=== PATIENT | female | born 1950 | race Caucasian/White ===

== ENCOUNTER → 2017-05-02 09:15 | Outpatient (CLI) | payer MEDICARE, SELFPAY ==
--- NOTE | 2017-05-02 09:22 | MM_ITS ---
MM Dig screening mamm BI w/CAD CAD Screening COMPARISON: None, previous mammograms were performed at [facility] and if and when they arrive an addendum can be dictated INDICATION: There is no personal or family history of breast cancer TECHNIQUE: Standard CC and MLO images were obtained. R2 CAD reviewed. FINDINGS: Prominent diffuse heterogenic fibroglandular densities are seen in both breasts. There are possible asymmetric densities in each breast best seen on the cc views. There is a mole marker left breast. There are few scattered benign-appearing calcifications in each breast. There are no suspicious microcalcifications. IMPRESSION: Diffusely dense parenchymal pattern with possible asymmetric densities in each breast and recommend the patient return for spot compression views of the areas marked on the film and ultrasound may be necessary as well BI-RADS Category: 0 Need Additional Imaging Evaluaiton RECOMMENDED FOLLOW-UP: IMM - IMMEDIATE FOLLOW-UP RECOMMENDED (A letter has been sent to the patient regarding results of the study.)
--- NOTE | 2017-05-02 09:23 | XR_ITS ---
DEXA SCAN.-BONE DENSITY STUDY HIPS AND LUMBAR SPINE TECHNIQUE: DEXA scan hip and lumbar spine The most complete data summary and color graphic presentation of the today's ( and any prior ) DEXA findings are available in PACS. Definition and treatment guidelines included. HISTORY: Postmenopausal female. Height loss and low calcium intake COMPARISON: None listed LUMBAR SPINE:--- L1 vertebral body demonstrates the lowest T score 0.8 with BMD1.23 g/cm sq Overall mean lumbar L1-L4 T score 4.0 with BMD1.662. g/cm sq . However I believe this is very slight elevated due to the prominent sclerotic] endplate changes and marginal osteophytes at the L2/3 level and to lesser L4/5. The measurements at level L1 vertebra likely the most ocean import representative bone density of spine . HIPS: ---- Femoral neck density is best predictor of hip fracture risk . Right femoral neck demonstrates the lowest T score 0.5 with BMD1.1 g/cm sq . Left femoral neck T score 1.5 Averaging all areas yields today's Hip Mean T score 2.3 with BMD1.29 g/cm sq . = Normal IMPRESSION......... 1. LUMBAR SPINE: Normal bone density. I believe L1 vertebra density is most ocean import representative L1 T score = 0.8. Degenerative features L-spine yielding dense bone about the L2/3 disc space, and to lesser L4/5 which elevate the overall bone density. 2. HIPS: Normal bone density Normal overall bone density hips and both femoral neck regions WHO criteria for post-menopausal, Women: Normal: T-score at or above -1 SD Osteopenia: T-score between -1 and -2.5 SD Osteoporosis: T-score at or below -2.5 SD
== END ==
PROVIDERS: Family Provider Family Medicine; PCP Family Medicine; Visit Provider Family Medicine
DX: Z12.31 Encounter for screening mammogram for malignant neoplasm of breast (principal); Z78.0 Asymptomatic menopausal state
CPT/HCPCS: 77067; 77080

== ENCOUNTER → 2017-05-13 14:04 | Outpatient (CLI) | payer MEDICARE, SELFPAY ==
--- NOTE | 2017-05-13 | US_ITS ---
MM Dig mamm BI DX w/CAD, US breast RT complete, US breast LT complete COMPARISON: 05/02/2017, or mammograms obtained at an outside institution are not available for review. INDICATION: Follow-up abnormal mammogram ORDERING PHYSICIAN: Ruel Blakely MD PATIENT AGE: 66 years TECHNIQUE: Problem-solving views of both breasts with complete bilateral breast ultrasound including axilla FINDINGS: Left mammogram: Spot compression views demonstrates a nodular opacity in the lateral left breast anteriorly which measures 7 mm. There are some faint calcifications also noted in this area. Asymmetric density was noted in the deep outer left breast which is less apparent on the exaggerated cc view and not demonstrated on the orthogonal view. On the exaggerated cc view, the 7 mm nodular opacity is less apparent and may represent asymmetric fibroglandular tissue appearing to compress out on the exiting CVA. There was a benign-appearing nodule in the deep central aspect of the left breast measuring 9 mm containing some coarse calcifications probably benign. Left breast ultrasound: No suspicious mass is evident. Similarly, the nodular density in the lateral left breast is not identified sonographically. Second look ultrasound showed a subcutaneous 8 mm nodule in the 5:00 region of the left breast outer aspect possibly related to the nodule containing coarse calcification and could represent a sebaceous cyst. Right mammogram: Asymmetric density noted in the lateral aspect of the right breast partially compresses out probably represent fibroglandular tissue. Right breast ultrasound: There is a 4 mm cyst at the 2:00 region and a 4 mm cyst at 7:00 region near the nipple which could account for the mammographic abnormality. No suspicious nodules are evident. IMPRESSION: Probably benign findings bilaterally. See above for detail BI-RADS Category: 3 Benign Finding Short Term Follow-up RECOMMENDED FOLLOW-UP: 6M - 6 MONTH FOLLOW-UP Recommend 6 month bilateral mammogram and ultrasound (A letter has been sent to the patient regarding results of the study.)
== END ==
PROVIDERS: Family Provider Family Medicine; PCP Family Medicine; Visit Provider Family Medicine
DX: R92.8 Other abnormal and inconclusive findings on diagnostic imaging of breast (principal)
CPT/HCPCS: 76641; 77066

== ENCOUNTER → 2017-11-02 12:45 | Outpatient (CLI) | payer MEDICARE, SELFPAY ==
--- NOTE | 2017-11-02 | MM_ITS ---
Mammogram diagnostic MM Dig mamm BI DX w/CAD COMPARISON: Previous May 2017 diagnostic mammogram, subsequent to a May 02, 2017 bilateral screening mammogram. Also bilateral breast ultrasound performed May 2017 INDICATION: Asymmetric density calcifications now for six-month follow-up. TECHNIQUE: Routine CC and MLO view both breast with subsequent Spot CC and MLO and 90 degree views of the left breast. . Also magnification CC and 90 degree view of calcifications left breast ===== BILATERAL DIAGNOSTIC MAMMOGRAM with SPOT VIEWS LEFT BREAST: RIGHT BREAST moderately dense and heterogeneous breast with no significant new findings. Follow-up in one of the right with the adequate. LEFT BREAST Area Labeled X -very deep breast we again see a at least 9.5 mm round nodular density. Calcifications as margin. It has not changed significantly since previous study but does warrant ongoing follow-up to indolent slowly changing abnormality. No cyst evident no suspicious solid nodule. The imaged lymph nodes seen on sagittal ultrasound and deep left breast appear to be more towards axillary region Suggest 6 month follow-up for area labeled X Area labeled Y--small 6 mm round area of nodularity upper-outer quadrant left breast. I believe can be followed in 6 months is well likely stable. Ultrasound reveals no unique findings here.. The scattered calcifications at the 12:00 left breast are fairly dense and scattered with no suspicious cluster or branching forms. Only minor progression of these most likely benign calcifications. Indication views included. Follow-up in 6 months adequate for these features as well. Also small area of calcification seen at the far lateral left breast which appear stable ULTRASOUND LEFT BREAST. With axillary survey Survey the entire breast with particular attention to areas noted on mammography. Axillary survey including No cyst or solid nodule is identified in the breast. We do see axillary lymph nodes some of which extend inferiorly but do not clearly associated with the area deep breast labeled X noted on mammography . IMPRESSION: 1. LEFT BREAST. ... Most notable is rounded density at deep margin of today's left mammogram.. Roughly 9.5 mm-. It appears fairly stable with minimal calcification is rim. More likely benign but warrants ongoing follow-up. No corresponding and malleolus seen on not evident subsequent ultrasound ... Minimal 6 mm round density vaguely seen at upper-outer quadrant left breast. Most likely benign feature and likely stable. ... Scattered loose grouping of slightly progressive but dense benign-appearing calcifications medial central breast. 2. Six-month follow-up left breast with left breast ultrasound recommended given the above features 3. Left Ultrasound today, reveals no cyst nor solid nodule only scattered benign axillary lymph nodes 4. RIGHT BREAST stable & unremarkable. Follow-up right mammogram 1 year BI-RADS CATEGORY: 3 Benign Finding Short Term Follow-Up RECOMMENDED FOLLOWUP: 6M 6MONTH FOLLOW-UP (A letter has been sent to the patient regarding results of the study.)
--- NOTE | 2017-11-02 14:00 | US_ITS ---
MAMMOGRAM DIAGNOSTIC MM Dig mamm BI DX w/CAD US breast LT complete COMPARISON: Previous May 2017 diagnostic mammogram, subsequent to a May 02, 2017 bilateral screening mammogram. Also bilateral breast ultrasound performed May 2017 INDICATION: Asymmetric density calcifications now for six-month follow-up. TECHNIQUE: Routine CC and MLO view both breast with subsequent Spot CC and MLO and 90 degree views of the left breast. . Also magnification CC and 90 degree view of calcifications left breast ===== BILATERAL DIAGNOSTIC MAMMOGRAM with SPOT VIEWS LEFT BREAST: RIGHT BREAST moderately dense and heterogeneous breast with no significant new findings. Follow-up in one of the right with the adequate. LEFT BREAST Area Labeled X -very deep breast we again see a at least 9.5 mm round nodular density. Calcifications as margin. It has not changed significantly since previous study but does warrant ongoing follow-up to indolent slowly changing abnormality. No cyst evident no suspicious solid nodule. The imaged lymph nodes seen on sagittal ultrasound and deep left breast appear to be more towards axillary region Suggest 6 month follow-up for area labeled X Area labeled Y--small 6 mm round area of nodularity upper-outer quadrant left breast. I believe can be followed in 6 months is well likely stable. Ultrasound reveals no unique findings here.. The scattered calcifications at the 12:00 left breast are fairly dense and scattered with no suspicious cluster or branching forms. Only minor progression of these most likely benign calcifications. Indication views included. Follow-up in 6 months adequate for these features as well. Also small area of calcification seen at the far lateral left breast which appear stable ULTRASOUND LEFT BREAST. With axillary survey Survey the entire breast with particular attention to areas noted on mammography. Axillary survey including No cyst or solid nodule is identified in the breast. We do see axillary lymph nodes some of which extend inferiorly but do not clearly associated with the area deep breast labeled X noted on mammography . IMPRESSION: 1. LEFT BREAST.. Follow-up left mammogram and left breast ultrasound in 6 months ... Most notable is rounded density at deep left breast at margin of image.. Roughly 9.5 mm-. It appears fairly stable with minimal calcification is rim. More likely benign but warrants ongoing follow-up. No corresponding cystic or solid mass evident subsequent ultrasound ... Minimal 6 mm round density vaguely seen at upper-outer quadrant left breast seen on mammography. Most likely benign feature and likely stable. ... Scattered loose grouping of slightly progressive but dense benign-appearing calcifications medial central breast. 2. Six-month follow-up left breast with left breast ultrasound recommended given the above features 3. Left Ultrasound today, reveals no cyst nor solid nodule only scattered benign axillary lymph nodes 4. RIGHT BREAST stable & unremarkable. Follow-up right mammogram 1 year BI-RADS CATEGORY: 3 BENIGN FINDINGS SHORT TERM FOLLOW UP RECOMMENDED FOLLOWUP: 6M 6MONTH FOLLOW-UP (A letter has been sent to the patient regarding results of the study.)
== END ==
PROVIDERS: Family Provider Family Medicine; PCP Family Medicine; Visit Provider Family Medicine
DX: R92.8 Other abnormal and inconclusive findings on diagnostic imaging of breast (principal)
CPT/HCPCS: 76641; 77066

== ENCOUNTER → 2018-05-01 11:46 | Outpatient (CLI) | payer MEDICARE, SELFPAY ==
--- NOTE | 2018-05-01 11:52 | NM_ITS ---
History and Indications: Hypertension, diabetes, hyperlipidemia, family history, chest pain and shortness of breath Procedure: Patient received a 0.4 mg of intravenous Lexiscan, resting heart rate 83 bpm resting blood pressure 160/86, with Lexiscan maximum heart rate achieved was 1 45 bpm which is less than 85% of the maximum predicted heart rate and a blood pressure was 215/90. With Lexiscan patient complained of shortness of breath. Electrocardiogram: Resting electrocardiogram showed sinus rhythm nonspecific. Changes, with Lexiscan occasional premature ventricular complex seen less than 1.[address] segment depression from the baseline EKG. The EKG portion of the Lexiscan Myoview is nondiagnostic secondary to baseline abnormal EKG. Cardiac stress and resting SPECT images: Cardiac stress and the suspect images were obtained using technetium 99 Myoview 32.2 mCi at stress and 10.5 mCi at rest. Gated SPECT further analysis of segmental wall motion and calculation of the ejection fraction also done. Cardiac stress and rest SPECT images show inferolateral wall which improves on the resting images suggestive of reversible ischemia, computer derived ejection fraction 59 percent, with no regional wall motion abnormality, right ventricle is normal size and contractility. Conclusion: 1. The EKG portion of the Lexiscan Myoview is nondiagnostic. 2. Scintigraphic evidence of mild reversible ischemia involving the inferior and inferolateral wall, computer derived ejection fraction is 59% with no regional wall motion abnormality, right ventricle is normal size and contractility. 3. Abnormal Lexiscan Myoview study.
--- NOTE | 2018-05-01 15:01 | HMH.ITSHM ---
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 []FENOFIBRIC FERROUS SULFATE GABAPENTIN GLIMEPERIDE JANVIA METFORMIN METOPROLOL NAPRXEN RANITIDINE SIMVASTATIN VALSARTAN/HCTZ ZETIA
== END ==
PROVIDERS: PCP Family Medicine; Visit Provider Family Medicine
DX: R07.9 Chest pain, unspecified (principal)
CPT/HCPCS: 78452; 93017; A9502; J2785

== ENCOUNTER → 2018-05-08 12:54 | Outpatient (CLI) | payer MEDICARE, SELFPAY ==
--- NOTE | 2018-05-08 12:56 | US_ITS ---
MM Dig mamm DX unilat LT CAD, US breast LT complete INDICATION: 6 month follow-up abnormal mammogram ORDERING PHYSICIAN: Ruel Blakely MD PATIENT AGE: 67 years COMPARISON: 11/02/2017, 05/13/2017 TECHNIQUE: Standard images performed along with spot compression views and mag views FINDINGS: Left mammogram: Scattered asymmetric fibroglandular elements once again noted. No change in the coarse calcifications. No malignant appearing mass or malignant appearing microcalcification is evident. There is an asymmetric density in the lateral aspect of the left breast just anterior to the benign-appearing nodular density not significant change since 05/02/2017. Benign-appearing nodular opacity in the deep aspect of the left breast at 9 mm containing coarse calcification is not significant changed since May 13, 2017 benign-appearing calcifications not significant weight change. Left breast ultrasound: 8 mm isoechoic nodule at 1:00 with enhanced through transmission of sound probably benign. 7 mm isoechoic nodule at 2:00 near the nipple probably benign. There are 3 isoechoic nodules at 3:00 near the nipple which all appear unchanged at 6, 7 and 9 mm. There is a subcutaneous 8 mm benign-appearing nodule at 5:00 probably benign. IMPRESSION: Probably benign findings with asymmetric densities, calcifications, and benign-appearing nodular densities noted on ultrasound. Continue 6 month follow-up recommended BI-RADS Category: 3 Probably Benign Finding Short Term Follow-up RECOMMENDED FOLLOW-UP: 6M - 6 MONTH FOLLOW-UP (A letter has been sent to the patient regarding results of the study.)
== END ==
PROVIDERS: PCP Family Medicine; Visit Provider Family Medicine
DX: R92.8 Other abnormal and inconclusive findings on diagnostic imaging of breast (principal)
CPT/HCPCS: 76641; 77065

== ENCOUNTER → 2018-05-15 08:41 | Outpatient (CLI) | payer MEDICARE, SELFPAY ==
[2018-05-15 10:02] LABS: Anion Gap 14.1 mEq/L (5-15); Blood Urea Nitrogen 15 mg/dL (7-18); Calcium 9.6 mg/dL (8.5-10.1); Carbon Dioxide 29 mmol/L (21.0-32.0); Chloride 101 mmol/L (98-107); Creatinine,Serum 0.92 mg/dL (0.55-1.02); Estimated Glomerular Filt Rate 61 ml/min (>60); GFR (African American) 73 ML/MIN (>60); Glucose 198 mg/dL (74-106); Potassium 4.1 mmoL/L (3.5-5.1); Sodium 140 mmol/L (136-145)
== END ==
PROVIDERS: Visit Provider Internal Medicine
DX: Z95.5 Presence of coronary angioplasty implant and graft (principal)
CPT/HCPCS: 36415; 80048

== ENCOUNTER 2018-05-29 14:27 | Outpatient (RCR) | payer MEDICARE, SELFPAY | END 2018-07-31 14:19 | disposition home or self-care (01) | LOC: PT 14:27 | PROVIDERS: Visit Provider Internal Medicine | DX: Z95.5 Presence of coronary angioplasty implant and graft (principal) | CPT/HCPCS: 93798 ==

== ENCOUNTER → 2018-06-09 07:35 | Outpatient (CLI) | payer MEDICARE, SELFPAY ==
--- NOTE | 2018-06-09 07:36 | CA_ITS ---
PROCEDURE: 2-D M-mode and color Doppler study INDICATIONS FOR THE TEST: Chest pain COPD Heart MurmurX Tobacco SmokingEX Palpitations Fatigue Syncope Edema HypertensionXDiabetes MellitusX Rheumatic Fever SOB AQUINO Obesity HyperlipidemiaX Family History HDX Additional History CAD,RECENT STENTS PATIENT INFORMATION HEIGHT: 61 WEIGHT:199 GENDER: Female B/P:168/67 2-D/M-MODE INTERPRETATION: 2-D MEASUREMENTS OBSERVED VALUES IN CMS Right Ventricular Dimension (RVDd) 2.4 Interventricular Septum (Thickness)(IVsd) .9 Left Ventricular Internal Dimensions(LVIDd) 5.2 Left Ventricular Posterior Wall (Thickness)(LVPWd) .9 Aortic Root 3.3 Aortic Cusp Separation .9 Left Atrial Dimensions (LAD) 3.0 2D 1. Left atrium is mildly enlarged, left ventricle is normal size, there is mild concentric left ventricular hypertrophy, visually estimated ejection fraction of 55-60% with no regional wall motion abnormality. 2. The right atrium and right ventricle are normal size and contractility. 3. The aortic valve is thickened and calcified with mild restriction the leaflet mobility. 4. The mitral valve has mitral annular calcification. 5. The tricuspid valve is grossly normal. 6. The pulmonic valve is poorly present. 7. No significant pericardial effusion noted. DOPPLER INTERROGATION: 1. The maximum aortic out flow velocity recorded study 2.5 m/s, resulting in a mean gradient across valve of 9 mmHg, this represents mild aortic stenosis, there is no aortic insufficiency. 2. The mitral inflow velocity within normal range, there is no mitral stenosis, there is mild mitral regurgitation, grade 1 diastolic dysfunction seen with tissue Doppler evidence of raised left atrial pressure. 3. Mild tricuspid regurgitation, tricuspid regurgitation jet velocity is inadequate for calculation of the right ventricular systolic pressure. CONCLUSION: 1. Normal left ventricular size, mild concentric left ventricular hypertrophy, visually estimated ejection fraction 55-60% with no regional wall motion abnormality, grade 1 diastolic dysfunction seen with tissue Doppler evidence of raised left atrial pressure. 2. Thickened and calcified aortic valve with mild aortic stenosis, there is no aortic insufficiency. 3. Mild mitral and tricuspid regurgitation 4. No significant pericardial effusion noted.
== END ==
PROVIDERS: PCP Family Medicine; Visit Provider Nurse Practitioner Family
DX: R01.1 Cardiac murmur, unspecified (principal)
CPT/HCPCS: 93306

== ENCOUNTER → 2018-12-06 14:16 | Outpatient (CLI) | payer MEDICARE, SELFPAY ==
--- NOTE | 2018-12-06 14:19 | MM_ITS ---
PROCEDURE: MM DIG MAMM BI DX W/CAD CLINICAL INDICATION: ABN MAMM Follow-up abnormal mammogram COMPARISON: DXBI MM Dig mamm BI DX w/CAD from 05/13/2017 DXBI MM Dig mamm BI DX w/CAD from 11/02/2017 BREASTLT US breast LT complete from 05/08/2018 DXLT MM Dig mamm DX unilat LT CAD from 05/08/2018 US BREAST LT COMPLETE from 12/06/2018 TECHNIQUE: Bilateral problem solving views along with left breast ultrasound the FINDINGS: There is average to dense fibroglandular tissue. Right breast: Scattered areas of asymmetric density are present in the central aspect of the right breast on the MLO view. These areas do appear to compress out is fibroglandular tissue. There are benign-appearing calcifications. No significant change from previous studies. Focal density is noted in the retroareolar region which dissipates on the nipple profile view. Left breast: Scattered asymmetries. Benign-appearing calcifications are noted. A small cluster of calcifications noted in the upper outer left breast has developed not readily apparent on the previous exam is. With Mag views on closer inspection there does appear to be some lucencies in these calcifications suggesting benign skin calcifications. Left breast ultrasound: 9 x 5 mm cyst at 1 o'clock, 8 mm hypoechoic nodule at 2 o'clock unchanged. This has some low-level echoes but appears unchanged and may be due to fibroadenoma. There is a 4 mm hypoechoic nodule at 10 o'clock unchanged. No suspicious nodules are evident. IMPRESSION: The right breast appears unchanged with benign findings. There are some new calcifications in the upper outer left breast which have some central lucencies and are probably benign. Six-month follow-up with Mag views suggested due to the interval development of these calcifications. BI-RAD Category: 3 Probably Benign Finding Short Term Follow-up FOLLOW-UP: 6M 6Month Follow-up (A letter has been sent to the patient regarding results of the study.) Dictated by: Rey Jay MD 12/08/2018 14:01 Signed by: <Electronically signed by Rey Jay MD in [place]> 12/08/2018 14:01
== END ==
PROVIDERS: PCP Family Medicine; Visit Provider Family Medicine
DX: R92.8 Other abnormal and inconclusive findings on diagnostic imaging of breast (principal)
CPT/HCPCS: 76641; 77066

== ENCOUNTER → 2019-04-27 10:32 | Outpatient (CLI) | payer MEDICARE, SELFPAY ==
--- NOTE | 2019-04-27 10:36 | XR_ITS ---
PROCEDURE: XR DEXA AXIAL SKELETON CLINICAL HISTORY: POST MENOPAUSAL COMPARISON: No exams were available for comparison FINDINGS: Right femoral neck density is 0.907 grams/centimeters sq with a T-score of 0 point. Left femoral neck density is 0.984 grams/centimeters sq with a T-score of 1 2. L1-L4 density is 1.372 grams/centimeters sq with a T-score of 3 IMPRESSION: Normal bone density Dictated by: Rey Jay MD 04/27/2019 11:21 Electronically signed by Rey Jay MD in [place] 04/27/2019 11:21
== END ==
PROVIDERS: PCP Family Medicine; Visit Provider Family Medicine
DX: Z13.820 Encounter for screening for osteoporosis (principal); Z78.0 Asymptomatic menopausal state
CPT/HCPCS: 77080

== ENCOUNTER → 2019-11-13 09:54 | Outpatient (CLI) | payer MEDICARE, SELFPAY ==
--- NOTE | 2019-11-13 10:08 | MM_ITS ---
PROCEDURE: MM DIG MAMM BI DX W/CAD Digital Breast Tomosynthesis Included CLINICAL INDICATION: lt breast calcifications, and rt breast density COMPARISON: MG SCBI MM Dig screening mamm BI w/CAD from 05/02/2017 MG DXBI MM Dig mamm BI DX w/CAD from 05/13/2017 MG DXBI MM Dig mamm BI DX w/CAD from 11/02/2017 MG DXLT MM Dig mamm DX unilat LT CAD from 05/08/2018 MG MM DIG MAMM BI DX W/CAD from 12/06/2018 TECHNIQUE: Standard CC and MLO images and 3D Tomosynthesis was obtained. R2 CAD reviewed. Spot-compression Mag views are performed also of the left breast FINDINGS: There is average fibroglandular tissue. Asymmetry is present in the outer aspect of the right breast which is stable compared to an older exam of 05/02/2017. This area appear to compress out on the spot compression view of 05/13/2017. Tomosynthesis suggest that this is due to overlying fibroglandular tissue. This also is not demonstrated on the orthogonal view. Recommend spot compression views of this area. The faint cluster of calcifications in the upper outer aspect of the left breast are not significantly changed. There are coarse calcifications also noted in the left breast. In the deep slightly outer aspect of the left breast there is a area of asymmetric density which measures 11 mm. This appears to be inferior based on the yosef images. This however is not readily demonstrated on the MLO view. Suggest at the patient return for spot-compression views of this area and left breast ultrasound IMPRESSION: Asymmetric density of the lateral left breast felt to be inferior and not covered on the MLO images. Suggest spot compression views and left breast ultrasound. Also recommend right breast ultrasound of the asymmetric density laterally. BI-RAD Category: 0 Need Additional Imaging Evaluation FOLLOW-UP: IMM Immediate Follow-up Recommended (A letter has been sent to the patient regarding results of the study.) Dictated b Rey Jay MD 11/16/2019 07:58 Rey Jay MD in [place] 11/16/2019 07:58
== END ==
PROVIDERS: PCP Family Medicine; Visit Provider Family Medicine
DX: R92.1 Mammographic calcification found on diagnostic imaging of breast (principal)
CPT/HCPCS: 77062; 77066; G0279

== ENCOUNTER → 2019-11-23 14:32 | Outpatient (CLI) | payer MEDICARE, SELFPAY ==
--- NOTE | 2019-11-23 | US_ITS ---
PROCEDURE: MM DIG MAMM BI DX W/CAD Digital Breast Tomosynthesis Included CLINICAL INDICATION: ABN MAMM COMPARISON: MG SCBI MM Dig screening mamm BI w/CAD from 05/02/2017 MG DXLT MM Dig mamm DX unilat LT CAD from 05/08/2018 MG MM DIG MAMM BI DX W/CAD from 12/06/2018 US US BREAST LT COMPLETE from 12/06/2018 MG MM DIG MAMM BI DX W/CAD from 11/13/2019 US US BREAST RT COMPLETE from 11/23/2019 US US BREAST LT COMPLETE from 11/23/2019 TECHNIQUE: Standard CC and MLO images and 3D Tomosynthesis was obtained. R2 CAD reviewed. FINDINGS: Right breast: Spot compression view once again show some asymmetry in the outer aspect of the right breast. This is overall not significantly changed compared to studies dating back to 05/02/2017. Right breast ultrasound: There is a 5 by 3 mm hypoechoic area at 7 o'clock which may correspond to a complex cyst and could contribute to the mammographic abnormality. No suspicious nodules are evident. There are some small nodes in the right axilla. Left breast: There is a 10 mm nodule deep in the upper outer aspect of the left breast. This does contain 2 coarse calcifications. This does not appear to be significantly changed dating back to 05/08/2018 and may be due to a small fibroadenoma. Left breast ultrasound: There is a subcutaneous hyperechoic nodule at 12 o'clock measuring 7 x 3 mm and may be due to small lipoma. At 1 o'clock there is a 9 x 4 mm hypoechoic nodule and may be due to a complex cyst not significantly changed. There is also a 9 mm hypoechoic nodule in the outer aspect of the left breast which may correspond to the mammographic abnormality. At 2 o'clock there is a 9 x 5 mm hypoechoic nodule and may be due to small cyst with enhanced through transmission of sound or a fibroadenoma benign-appearing. At 3 o'clock there is a 8 mm hypoechoic nodule with enhanced through transmission of sound and may be due to a complex cyst or fibroadenoma. At 4 o'clock there is a subcutaneous nodule at 9 mm which is hypoechoic with some enhanced through transmission of sound. This is not readily demonstrated previously possibly due to technique. Near the nipple at 10 o'clock there are 2 hypoechoic nodules at 4 and 5 mm. Small nodes are present in the axilla. IMPRESSION: There are multiple bilateral probably benign nodules as described above. On the ultrasound there is a new subcutaneous hypoechoic nodule demonstrated in the 4 o'clock region laterally which has benign appearance but does contain some low level echoes. This may be due to a lymph node.. Suggest 6 month sonographic and mammographic follow-up BI-RAD Category: 3 Probably Benign Finding Short Term Follow-up FOLLOW-UP: 6M 6Month Follow-up (A letter has been sent to the patient regarding results of the study.) Dictated by: Rey Jay MD 12/10/2019 09:06 Rey Jay MD in [place] 12/10/2019 09:06
== END ==
PROVIDERS: PCP Family Medicine; Visit Provider Nurse Practitioner Family
DX: R92.8 Other abnormal and inconclusive findings on diagnostic imaging of breast (principal)
CPT/HCPCS: 76641; 77062; 77066; G0279

== ENCOUNTER → 2020-07-17 14:30 | Outpatient (CLI) | payer MEDICARE, SELFPAY ==
--- NOTE | 2020-07-17 14:34 | MM_ITS ---
PROCEDURE: MM DIG MAMM BI DX W/CAD Digital Breast Tomosynthesis Included CLINICAL INDICATION: 6 MONTH F/U ABN MAMM COMPARISON: MG SCBI MM Dig screening mamm BI w/CAD from 05/02/2017 MG MM DIG MAMM BI DX W/CAD from 12/06/2018 MG MM DIG MAMM BI DX W/CAD from 11/13/2019 MG MM DIG MAMM BI DX W/CAD from 11/23/2019 US US BREAST RT COMPLETE from 11/23/2019 US US BREAST LT COMPLETE from 11/23/2019 US US BREAST LT COMPLETE from 07/17/2020 US US BREAST RT COMPLETE from 07/17/2020 TECHNIQUE: Standard CC and MLO images and 3D Tomosynthesis was obtained. R2 CAD reviewed. FINDINGS: Right breast: Scattered areas of asymmetry as before. No malignant appearing mass or malignant-appearing microcalcification. Benign-appearing calcifications are noted with scattered areas of asymmetry. Right breast ultrasound: 6 x 3 mm hypoechoic area at 7 o'clock not significantly changed. No suspicious nodules. Left breast: Scattered areas of asymmetry. Coarse calcifications once again noted in the central aspect of the left breast not significantly changed. No malignant appearing microcalcifications or mass. Faint calcifications in the mid aspect of the left breast not significantly changed. A skin lesion is marked in the medial aspect of the left breast and in the deep lateral aspect of the left breast. Well-circumscribed nodule once again noted in the deep aspect of the left breast laterally consistent with a fibroadenoma not significantly changed measuring approximately 9 mm Left breast ultrasound: Multiple lipomas are present. There is an oval hypoechoic nodule at 2 o'clock at 8 x 4 mm not significantly changed benign-appearing slightly hypoechoic nodule present at 10 o'clock at 5 mm unchanged no suspicious nodules are evident. Previously noted subcutaneous nodule at 4 o'clock is not demonstrated on today's exam IMPRESSION: Benign findings. No convincing evidence of malignancy. Recommend resume screening in November of 2020 BI-RAD Category: 2 Benign Finding(s) FOLLOW-UP: 6M 6Month Follow-up (A letter has been sent to the patient regarding results of the study.) Dictated by: Rey Jay MD 07/25/2020 12:34 Rey Jay MD in [place] 07/25/2020 12:34
== END ==
PROVIDERS: PCP Family Medicine; Visit Provider Family Medicine
DX: R92.8 Other abnormal and inconclusive findings on diagnostic imaging of breast (principal)
CPT/HCPCS: 76641; 77062; 77066; G0279

== ENCOUNTER 2020-08-07 12:10 | Emergency (ER) | payer MEDICARE, SELFPAY ==
[2020-08-07 12:11] VITALS: BP 120/54; PULSE 117; RESP 19; TEMP 36.6; O2SAT 95; BMI 39.0
--- NOTE | 2020-08-07 12:15 | ECG_ITS ---
APPROVED REPORT Exam: Resting ECG HR:119 bpm ECG Measurements Heart Rate 119 AXES QRSd 88 QRS 77 QT 322 T 35 QTc 452 Conclusion Atrial fibrillation with rapid ventricular response Anteroseptal infarct, age undetermined Abnormal ECG Electronically signed by : Yehuda Koehler, 08/08/2020 10:36:20
[2020-08-07 12:25] VITALS: BP 120/54; PULSE 71; RESP 18; O2SAT 96
--- NOTE | 2020-08-07 12:25 | XR_ITS ---
PROCEDURE: XR CHEST PORTABLE CLINICAL HISTORY: soa COMPARISON: CR CXR CHEST(2 VIEWS-NOT PORTABLE) from 10/21/[address] ANGIO CHEST from 08/07/2020 FINDINGS: The cardiomediastinal silhouette and pulmonary vascularity are within normal limits. Patchy density in the right infrahilar region and left upper lobe suggesting small areas of ground-glass attenuation as seen on the CT scan. No acute bony abnormalities. IMPRESSION: Patchy areas of ground-glass infiltrate in left upper lobe and right infrahilar region Dictated by: Rey Jay MD 08/07/2020 14:56 Rey Jay MD in [place] 08/07/2020 14:56
[2020-08-07 12:36] LABS: Basophils % 0.3 % (0.1-2.0); Eosinophils # 0.1 K/mm3 (0.0-0.4); Eosinophils % 0.5 % (0.1-12.0); Hematocrit 33.2 % (37.0-47.0); Hemoglobin 10.5 g/dL (12.2-16.2); Lymphocytes # 1.8 K/mm3 (0.7-4.5); Lymphocytes % 15.7 % (10-50); Mean Corpuscular HGB Conc 31.6 g/dL (31.8-35.4); Mean Corpuscular Hemoglobin 25.8 pg (27.0-31.2); Mean Corpuscular Volume 81.4 fl (81-99); Mean Platelet Volume 9.3 fl (7.4-10.4); Monocytes # 0.4 K/mm3 (0.1-1.0); Neutrophils # 8.9 K/mm3 (1.8-7.8); Neutrophils % 79.5 % (37.0-80.0); Platelet Count 312 K/mm3 (142-424); Red Blood Count 4.08 M/mm3 (4.20-5.40); Red Cell Distribution Width 15.4 % (11.5-17.5); White Blood Count 11.2 K/mm3 (4.8-10.8)
[2020-08-07 12:39] LABS: Chloride 102 mmol/L (98-107)
[2020-08-07 12:40] LABS: Potassium 4.1 mmoL/L (3.5-5.1); Sodium 139 mmol/L (136-145)
[2020-08-07 12:43] LABS: Anion Gap 17.1 mEq/L (5-15); Blood Urea Nitrogen 24 mg/dl (7-17); Calcium 9.7 mg/dl (8.4-10.2); Carbon Dioxide 24 mmol/L (22.0-30.0); Creatinine Clearance Estimated 62 mL/min (50-200); Estimated Glomerular Filt Rate 44 ml/min (>60); GFR (African American) 54 ML/MIN (>60); Glucose 173 mg/dl (74-100); Magnesium 1.8 mg/dl (1.6-2.3)
--- NOTE | 2020-08-07 12:45 | HMH.EDGENADL ---
ED Disposition Clinical Impression: Atrial fibrillation with RVR Disposition: Home, Self-Care Condition on Discharge: Good Prescriptions: Rivaroxaban [Xarelto 20mg Tablet*] 20 mg PO DAILY 10 Days #10 tab Transmission Status: Pending to [facility] Referrals: Ruel Blakely MD [Primary Care Provider] - - Critical Care Critical Care Time: Yes Attestation: On 08/07/20, the high probability of a clinically significant, sudden or life threatening deterioration of the following system(s) required my full and direct attention, intervention and personal management. The time I documented below is in addition to time spent performing reported procedures but includes the following listed in this critical care notation. Total Critical Care Time: 30 Vital system(s) involved:: Circulatory Failure My critical care processes included: Assessment & monitoring of V/S, Initial and Re-exams, Data Review/Interpretation, Coordinating Care, Medication Orders and management, Documentation Medical Decision Making - Medical Records Medical records reviewed: Yes: I reviewed the patient's medical records. - Cas Inquiry Pt receiving controlled substance: No Vital Signs: 08/07/20 12:11 08/07/20 12:25 08/07/20 13:01 Temperature 97.8 F Temperature Source Oral Pulse Rate 71 108 H Pulse Rate [Right] 117 H Respiratory Rate 19 18 25 H Blood Pressure 120/54 L 120/71 Blood Pressure [Right Arm] 120/54 L Blood Pressure Mean 103 Blood Pressure Mean [Right Arm] 76 02 Sat by Pulse Oximetry 95 96 92 L 08/07/20 14:14 Temperature Temperature Source Pulse Rate 115 H Pulse Rate [Right] Respiratory Rate 18 Blood Pressure 156/71 H Blood Pressure [Right Arm] Blood Pressure Mean Blood Pressure Mean [Right Arm] 02 Sat by Pulse Oximetry 98 - Lab Data Lab Results 08/07/20 12:20: WBC 11.2 H, RBC 4.08 L, Hgb 10.5 L, Hct 33.2 L, MCV 81.4, MCH 25.8 L, MCHC 31.6 L, RDW 15.4, Plt Count 312, MPV 9.3, Neut % (Auto) 79.5, Lymph % (Auto) 15.7, [place] % (Auto) 4.0, Eos % (Auto) 0.5, Baso % (Auto) 0.3, Neut # (Auto) 8.9 H, Lymph # (Auto) 1.8, [place] # (Auto) 0.4, Eos # (Auto) 0.1, Baso # (Auto) 0.0 08/07/20 12:20: Sodium 139, Potassium 4.1, Chloride 102, Carbon Dioxide 24, Anion Gap 17.1 H, BUN 24 H, Creatinine 1.20 H, Estimated Creat Clear 62, Estimated GFR 44 L, Est GFR ( Amer) 54 L, Glucose 173 H, Calcium 9.7, Magnesium 1.8, Troponin I 0.02, TSH 2.14 08/07/20 12:20: D-Dimer 0.94 H Result diagrams: 08/07/20 12:20 08/07/20 12:20 Orders (Tests/Meds): ED MEDICATIONS Discontinued Medications Generic Name Dose Route Start Last Admin Trade Name Freq PRN Reason Stop Dose Admin Iopamidol 70 ml 08/07/20 13:58 08/07/20 14:00 Iopamidol-370 (76%);100ml Bottle IV 08/07/20 13:59 70 ml ONCE ONE Administration Metoprolol Tartrate 5 mg 08/07/20 12:29 08/07/20 13:08 Metoprolol Tartrate 5mg/5ml Vial IV 08/07/20 12:30 5 mg ONCE ONE Administration Metoprolol Tartrate 100 mg 08/07/20 13:21 08/07/20 13:27 Metoprolol Tartrate 50mg Tablet PO 08/07/20 13:22 100 mg ONCE ONE Administration Metoprolol Tartrate 5 mg 08/07/20 13:21 08/07/20 14:13 Metoprolol Tartrate 5mg/5ml Vial IV 08/07/20 13:22 5 mg ONCE ONE Administration Sodium Chloride 10 ml 08/07/20 13:58 08/07/20 14:00 Sodium Chloride 0.9% 10ml Syr (Rad Only) IV 08/07/20 13:59 10 ml ONCE ONE Administration Sodium Chloride 50 ml 08/07/20 13:58 08/07/20 14:00 0.9 % Sodium Chloride 50 Ml Vial IV 08/07/20 13:59 50 ml ONCE ONE Administration ORDERS Category Date Time Status Troponin I Q3H Lab 08/07/20 15:30 Ordered Troponin I Q3H Lab 08/07/20 18:30 Ordered Medical Decision Narrative: 69-year-old female presents with shortness of breath for the last 2 weeks. She does have atrial fibrillation with RVR. IV and she did rate control. Given p.o. as well and her heart rate was less than 100.
[2020-08-07 12:49] LABS: D-Dimer 0.94 ug/mL (0.0-0.5)
[2020-08-07 12:56] LABS: Troponin I 0.02 ng/ml (0.00-0.034)
[2020-08-07 13:01] VITALS: BP 120/71; PULSE 108; RESP 25; O2SAT 92
[2020-08-07 13:14] LABS: Thyroid Stimulating Hormone 2.14 uIU/mL (0.465-4.68)
--- NOTE | 2020-08-07 13:30 | CT_ITS ---
PROCEDURE: CT ANGIO CHEST CLINCIAL INDICATION: pte Rule out PE, heart disease COMPARISON: No exams were available for comparison TECHNIQUE: IV Contrast: 70ML Isovue 370 Axial images obtained with sagittal and coronal reformats. All CT scans at the facility use one or more dose reduction, viz: automated exposure control, ma/kV adjustment per patient size (including targeted exams where dose is matched to indication, i.e. head), or iterative reconstruction technique. FINDINGS: HEART AND MEDIASTINAL STRUCTURES: No evidence of pulmonary embolus, aortic aneurysm, or aortic dissection.. Small nodes are present in the mediastinum. Coronary artery calcifications are present. LUNGS AND PLEURAL SPACES: There is multifocal areas of ground-glass attenuation in both upper and lower lobes. Some of these are more dense than others in the upper lobes anteriorly.. The more dense areas of opacification/consolidation are in the upper lobes and measure approximately 9 mm. There are trace bilateral pleural effusions with atelectatic changes in the lung bases. BONY STRUCTURES: No acute bony abnormalities apparent. UPPER ABDOMEN: Fatty liver. Hepatomegaly. In the upper abdomen there was noted to be lobulation of the anterior aspect of the left kidney. This could be related to lobulation or even a renal mass. This is incompletely imaged. There is and adrenal myelolipoma on the left measuring 3.4 cm. ADDITIONAL FINDINGS: No other significant abnormalities. IMPRESSION: 1. No evidence of pulmonary embolus. 2. Multifocal areas of ground-glass attenuation in the upper and lower lobes some of which are more dense than others. Atypical/Covid19 pneumonia is a consideration. The more dense areas have a somewhat nodular contour and may only be related to more dense consolidation versus true lung nodules which could be seen with metastatic disease. 3. Trace bilateral effusions with atelectatic change. 4. Possible left renal mass. Dictated by: Rey Jay MD 08/07/2020 14:31 Rey Jay MD in [place] 08/07/2020 14:31
[2020-08-07 14:14] VITALS: BP 156/71; PULSE 115; RESP 18; O2SAT 98
[2020-08-07 15:24] VITALS: BP 145/80; PULSE 112; RESP 16; TEMP 36.8; O2SAT 98
== END 2020-08-07 15:26 | disposition home or self-care (01) ==
PROVIDERS: Emergency Provider Emergency Medicine; PCP Family Medicine
DX: I48.91 Unspecified atrial fibrillation (principal); E11.65 Type 2 diabetes mellitus with hyperglycemia; I25.10 Atherosclerotic heart disease of native coronary artery without angina pectoris; K21.9 Gastro-esophageal reflux disease without esophagitis; E78.5 Hyperlipidemia, unspecified; I10 Essential (primary) hypertension; Z79.899 Other long term (current) drug therapy
CPT/HCPCS: 71045; 71275; 80048; 83735; 84443; 84484; 85025; 85378; 93005; 96374; 96376; 99282; Q9967

== ENCOUNTER → 2020-08-08 10:20 | Outpatient (CLI) | payer MEDICARE, SELFPAY | PROVIDERS: PCP Family Medicine; Visit Provider Internal Medicine Cardiovascular Disease | DX: Z20.822 Contact with and (suspected) exposure to COVID-19 (principal) | CPT/HCPCS: U0003 ==

== ENCOUNTER → 2020-08-18 14:11 | Outpatient (CLI) | payer MEDICARE, SELFPAY ==
--- NOTE | 2020-08-18 14:24 | CA_ITS ---
APPROVED REPORT EXAM: Comprehensive 2D, Doppler, and color-flow Echocardiogram [employer] Technician: JACINTA Olsen, RVS Ht: 5 ft 0 in Wt: 203lbs BSA: 1.88 BP: 116/85 mmHg Indications: AQUINO, Afib, Stent, CAD, GERD, HTN, HLD Echo Enhancing Agent Comments: Poorly visualized subcostal images due to belly girth 2D Dimensions Left Atrium 3.41 cm LA Volume 95.60 mL LVOT 1.99 cm (M/F) 1.5-2.5 LA Volume Index 50.90 mL/m2 (M/F) 16-34 M-Mode Dimensions RVDd 2.93 cm (0.9-2.6) LA Diam 4.61 cm (1.9-4.0) LVDd 4.57 cm (3.5-5.7) Ao Diam 2.71 cm (2.0-3.7) LVDs 3.11 cm (3.5-5.7) IVSd 1.07 cm (0.6-1.1) PWd 0.80 cm (0.6-1.1) EF (Teich) 65.10% EPSs 0.23 cm FS 35.70% EDV (Teich) 109.60 mL TAPSE 2.46 (<1.7) ESV (Teich) 38.20 mL LV Diastology E Decel Time 337.00 (160-240 msec) E/A Ratio 0.75 MED E' 7.40 (< 7 cm/sec) MED A' 12.10 cm/s E'/MED E' Ratio 16.72 (>14) LAT E' 7.00 (<10 cm/sec) LAT A' 13.50 cm/s E/LAT E' Ratio 17.67 (>14) Pulm Vein s 44.00 cm/sec Pulm Vein d 35.00 cm/sec Ar-A Duration 133.00 msec Aortic Valve LVOT Max 123.00 (70-110 cm/s) LVOT VTI 31.82 cm AoV Peak Juancarlos. 259.00 (50-130 cm/s) AO Peak GR. 26.90 mmHg AO Mean GR. 13.20 (<5 mmHg) AO VTI 57.30 (18-25 cm) MELVIN (VTI) 1.73 (2.5-4.5 cm2) Mitral Valve MV A Velocity 166.00 (40-130 cm/s) E/A Ratio 0.75 MV Decel. Time 337.00 (160-240 ms) MV Mean Gr. 4.60 (<2mmHg) Pulmonary Valve PV Peak Velocity 108.00 (50-150 cm/s) Tricuspid Valve TR P. Velocity 138.00 cm/s RAP Estimate 10.00 mmHg RVSP 17.70 mmHg Left Ventricle Left atrium is mildly enlarged, left ventricle is normal size, mild concentric left ventricular hypertrophy, visually estimated ejection fraction 55% with no regional wall motion abnormality, grade 1 diastolic dysfunction seen with tissue Doppler evidence of raise left atrial pressure. Right Ventricle Right atrium and right ventricle are normal size and contractility. Aortic Valve Aortic valve is thickened and calcified, mean gradient across valve is 15 mmHg, valve area is 1.6 cm, represents mild aortic stenosis, there is no aortic insufficiency. Mitral Valve Mitral valve has mitral calcification, leaflets are minimally thickened, there is no significant mitral stenosis, there is mild mitral regurgitation. Tricuspid Valve Tricuspid valve grossly normal, there is mild tricuspid regurgitation, tricuspid regurgitation jet velocity is inadequate for calculation of the right ventricular systolic pressure. Pulmonic Valve Pulmonic valve is poorly visualized. Great Vessels Aortic root is normal size. Pericardium No significant pericardial effusion noted. Conclusion 1. Mildly enlarged left atrium, normal left ventricular size, mild concentric left ventricular hypertrophy, visually estimated ejection fraction 55% with no regional wall motion abnormality, grade 1 diastolic dysfunction seen with tissue Doppler evidence of raise left atrial pressure. 2. Thickened and calcified aortic valve with mild aortic stenosis, the valve area is 1.6 cm???. 3. Mild mitral and tricuspid regurgitation 4. No significant pericardial effusion noted. Electronically signed by : Figueroa Kohler, 08/18/2020 18:26:10
--- NOTE | 2020-08-18 14:58 | US_ITS ---
PROCEDURE: US KIDNEY CLINICAL INDICATION: I48.91 - Unspecified atrial fibrillation COMPARISON: CT CT ANGIO CHEST from 08/07/2020 FINDINGS: The right kidney is [id number]. No hydronephrosis, cortical thinning, or renal mass or perinephric fluid collection is evident. The left kidney is [id number]. No hydronephrosis, cortical thinning, or renal mass or perinephric fluid collection is evident. No evidence of mass lesions noted in the visualized kidneys. Lobulated appearance of the left kidney is noted. Normal vascularity is noted bilaterally. IMPRESSION: Lobulated appearance of the left kidney. No focal masses are noted. Dictated by: Philly Grimaldo 08/19/2020 09:43 Philly Grimaldo in [place] 08/19/2020 09:43
== END ==
PROVIDERS: PCP Family Medicine; Visit Provider Internal Medicine Cardiovascular Disease
DX: I48.91 Unspecified atrial fibrillation (principal); R60.0 Localized edema; R93.89 Abnormal findings on diagnostic imaging of other specified body structures
CPT/HCPCS: 76770; 93306

== ENCOUNTER → 2020-09-25 12:06 | Outpatient (CLI) | payer MEDICARE, SELFPAY ==
[2020-09-25 21:06] LABS: Anion Gap 13.1 mEq/L (5-15); Blood Urea Nitrogen 23 mg/dl (7-17); Calcium 9.6 mg/dl (8.4-10.2); Carbon Dioxide 29 mmol/L (22.0-30.0); Chloride 105 mmol/L (98-107); Estimated Glomerular Filt Rate 55 ml/min (>60); GFR (African American) 66 ML/MIN (>60); Glucose 102 mg/dl (74-100); Potassium 5.1 mmoL/L (3.5-5.1); Sodium 142 mmol/L (136-145)
== END ==
PROVIDERS: Visit Provider Physician Assistant
DX: E78.5 Hyperlipidemia, unspecified (principal); I11.9 Hypertensive heart disease without heart failure; I25.10 Atherosclerotic heart disease of native coronary artery without angina pectoris; R06.00 Dyspnea, unspecified; R60.0 Localized edema; R93.89 Abnormal findings on diagnostic imaging of other specified body structures; Z95.5 Presence of coronary angioplasty implant and graft
CPT/HCPCS: 36415; 80048

== ENCOUNTER → 2020-10-10 08:21 | Outpatient (CLI) | payer MEDICARE, SELFPAY ==
[2020-10-10 11:13] LABS: Chloride 105 mmol/L (98-107); Potassium 4.8 mmoL/L (3.5-5.1); Sodium 142 mmol/L (136-145)
[2020-10-10 11:16] LABS: Anion Gap 13.8 mEq/L (5-15); Blood Urea Nitrogen 17 mg/dl (7-17); Calcium 9.4 mg/dl (8.4-10.2); Carbon Dioxide 28 mmol/L (22.0-30.0); Estimated Glomerular Filt Rate 62 ml/min (>60); GFR (African American) 75 ML/MIN (>60); Glucose 161 mg/dl (74-100)
== END ==
PROVIDERS: Visit Provider Internal Medicine
DX: I11.9 Hypertensive heart disease without heart failure (principal)
CPT/HCPCS: 36415; 80048

== ENCOUNTER → 2020-10-24 10:15 | Outpatient (CLI) | payer MEDICARE, SELFPAY ==
--- NOTE | 2020-10-24 10:19 | XR_ITS ---
PROCEDURE: XR LUMBAR SPINE MIN 4V CLINICAL INDICATION: M54.5 Chronic back pain COMPARISON: No exams were available for comparison FINDINGS: There is minimal upper lumbar curvature convex right. Multilevel disc degenerative disc disease is present from L1-S1 and in the lower thoracic spine. Endplate osteophytes are noted. The degenerative disc disease and endplate osteophytes are most prominent at L2-L3. There is multilevel disc desiccation. There is good alignment with no acute fracture or dislocation. There is slight reversal of the lumbar lordosis at the L1-L2 level. There is diffuse vascular calcification. The SI joints have an unremarkable appearance. Calcification is noted in the pelvis nonspecific but could be within uterine fibroids. IMPRESSION: Multilevel degenerative disc disease Dictated by: Rey Jay MD 10/24/2020 10:57 Rey Jay MD in [place] 10/24/2020 10:57
== END ==
PROVIDERS: PCP Family Medicine; Visit Provider Family Medicine
DX: M54.5 Low back pain (principal)
CPT/HCPCS: 72110

== ENCOUNTER → 2021-01-19 13:47 | Outpatient (CLI) | payer MEDICARE, SELFPAY ==
--- NOTE | 2021-01-19 13:50 | MM_ITS ---
PROCEDURE INFORMATION: Exam: MG Bilateral Screening 3D Mammography Exam date and time: 01/19/2021 1:50 PM Age: 70 years old Clinical indication: Encounter for screening mammogram for malignant neoplasm of breast TECHNIQUE: Imaging protocol: Bilateral screening tomosynthesis and 2D mammography including computer-aided detection (CAD) when performed. COMPARISON: 07/17/2020, 11/23/2019, 11/13/2019, 12/06/0005/08/2018, , 05/02/2017. FINDINGS: MAMMOGRAPHY: Breast composition: The breasts are heterogeneously dense, which may obscure small masses. Mass: No suspicious masses. Relatively stable scattered partially circumscribed masses noted bilaterally. Architectural distortion: No suspicious distortion. Calcifications: No suspicious calcifications. Relatively stable coarse benign-appearing calcifications noted bilaterally. Asymmetric density: None. Skin thickening: None. Axillary adenopathy: None. IMPRESSION: No mammographic evidence of malignancy. Annual screening is recommended unless otherwise clinically indicated. ASSESSMENT: BI-RADS Category 2: Benign
== END ==
PROVIDERS: PCP Family Medicine; Visit Provider Family Medicine
DX: R92.8 Other abnormal and inconclusive findings on diagnostic imaging of breast (principal); Z12.31 Encounter for screening mammogram for malignant neoplasm of breast
CPT/HCPCS: 77063; 77067

== ENCOUNTER → 2021-05-04 08:52 | Outpatient (CLI) | payer MEDICARE, SELFPAY ==
--- NOTE | 2021-05-04 08:57 | XR_ITS ---
FINAL REPORT TECHNIQUE: Bone densitometry calculations of the lumbar spine and left hip were obtained. CLINICAL HISTORY: . post menopausal screening FINDINGS: Using L1-4, the bone mineral density of the spine is 1.490 g/cm2, corresponding to T-score of 4.0. Using the left hip, the bone mineral density of the femoral neck is 0.945 g/cm2, corresponding to a T-score of 0.9. NOTE: T-score: Standard deviation compared with peak bone mass of young adult mean. *Following the recommendations of the International Society of Bone densitometry, classification of hip BMD is based on the lower of two T-scores; total hip or femoral neck. IMPRESSION: Normal bone mineral density of the lumbar spine and hip. Reviewed, Interpreted and Dictated by Yair Ribeiro MD Transcribed by Allison Johnston Authenticated by Yair Ribeiro MD on 05/04/2021 09:57:59 AM [facility]
== END ==
PROVIDERS: PCP Family Medicine; Visit Provider Family Medicine
DX: Z13.220 Encounter for screening for lipoid disorders (principal); Z78.0 Asymptomatic menopausal state
CPT/HCPCS: 77080

== ENCOUNTER → 2021-08-12 09:39 | Outpatient (CLI) | payer MEDICARE, SELFPAY ==
--- NOTE | 2021-08-12 09:43 | CA_ITS ---
FINAL REPORT TECHNIQUE: Color Doppler, duplex Doppler and berry scale sonography of the bilateral neck arterial vasculature was performed. Velocities were measured in the carotid arteries. Stenosis evaluation based on the validated velocity criteria. CLINICAL HISTORY: bilateral carotid bruit FINDINGS: DUPLEX SCAN OF CAROTID ARTERIES PATI The peak systolic velocity of the right common carotid artery is 113 cm/s. The peak systolic velocity of the right internal carotid artery is 121 cm/s and end diastolic velocity 35 cm/s. The ICA/CCA ratio is 1.4. A mild amount of plaque is present. The right external carotid artery is patent. The right vertebral artery is patent with antegrade flow. The peak systolic velocity of the left common carotid artery is 101 cm/s. The peak systolic velocity of the left internal carotid artery is 171 cm/s and end diastolic velocity 42 cm/s. The ICA/CCA ratio is 1.74. A mild amount of plaque is present. The left external carotid artery is patent.The left vertebral artery is patent with antegrade flow. IMPRESSION: Less than 50% bilateral carotid stenosis. Bilateral patent vertebral arteries with antegrade flow. Reviewed, Interpreted and Dictated by Hua Smyth III, MD Transcribed by Allison Johnston Authenticated by Hua Smyth III, MD on 08/12/2021 12:11:40 PM [facility]
== END ==
PROVIDERS: PCP Family Medicine; Visit Provider Internal Medicine Cardiovascular Disease
DX: R09.89 Other specified symptoms and signs involving the circulatory and respiratory systems (principal)
CPT/HCPCS: 93880

== ENCOUNTER 2021-10-28 21:26 | Emergency (ER) | payer MEDICARE, SELFPAY ==
[2021-10-28 21:39] VITALS: BP 169/70; PULSE 70; RESP 18; TEMP 36.8; O2SAT 95; BMI 39.0
[2021-10-28 22:31] VITALS: BP 153/58; PULSE 78; O2SAT 92
--- NOTE | 2021-10-29 00:28 | HMH.EDEPIS ---
ED Disposition Clinical Impression: Epistaxis Disposition: Home, Self-Care Condition on Discharge: Good Instructions: DI for Nosebleed Additional Instructions: see pcp and ent for follow up remove this am Referrals: Ruel Blakely MD [Primary Care Provider] - Talta Malik MD [Physician] - Alex Vance MD [Physician] - - Critical Care Critical Care Time: No Attestation: On 10/28/21, the high probability of a clinically significant, sudden or life threatening deterioration of the following system(s) required my full and direct attention, intervention and personal management. The time I documented below is in addition to time spent performing reported procedures but includes the following listed in this critical care notation. Medical Decision Making - Medical Records Medical records reviewed: Yes: I reviewed the patient's medical records. - Cas Inquiry Pt receiving controlled substance: No Vital Signs: 10/28/21 21:39 10/28/21 22:31 10/29/21 01:45 Temperature 98.2 F 98.2 F Temperature Source Oral Pulse Rate 78 74 Pulse Rate [Apical] 70 Respiratory Rate 18 18 Blood Pressure 153/58 H 152/61 H Blood Pressure [Right Arm] 169/70 H Blood Pressure Mean [Right Arm] 103 Blood Pressure Source [Right Arm] Automatic Cuff Blood Pressure Position [Right Arm] Sitting 02 Sat by Pulse Oximetry 95 92 L Oxygen Delivery Method Room Air Room Air - Lab Data Lab results reviewed: Yes: I reviewed the patient's lab results. Orders (Tests/Meds): ED MEDICATIONS Discontinued Medications Generic Name Dose Route Start Last Admin Trade Name Freq PRN Reason Stop Dose Admin Cocaine HCl 4 ml 10/28/21 21:49 10/29/21 00:28 Cocaine 4% Topical Soln 4ml Bottle TP 10/28/21 21:50 4 ml ONCE ONE Administration Oxymetazoline HCl 15 ml 10/28/21 21:49 10/29/21 00:28 Oxymetazoline Nasal [place] 0.05% 15ml NS 10/28/21 21:50 15 ml ONCE ONE Administration Medical Decision Narrative: has nose bleed with xarelto and packing - stopped at this time Epistaxis HPI - General Chief complaint: Epistaxis Stated complaint: nosebleed, covid pos 10/25/21 Time Seen by Provider: 10/29/21 00:28 Mode of Arrival: Ambulatory Source of Information: Patient, Medical Record Limitations: No Limitations Description of Symptoms (Recalled from ER Triage Doc. by RN): Patient c/o nose bleed since 1300 this afternoon. Denies any facial injury or trauma to nose, denies nasal drainage prior or dryness. States that the nose bleed has been intermittent throughout the day. - History of Present Illness HPI Narrative: rt sided nose bleed w/o sinusitis and no trauma but on xaralto and plavix - has a fib MD complaint: epistaxis Location: right nostril Onset (ago): hour(s) Duration: constant Context: other anticoagulant use Treatment prior to arrival: nose pinching - Related Data Home Medications Medication Instructions Recorded Confirmed Exenatide Microspheres [Bydureon 2 mg SQ WEEKLY 01/13/18 09/30/21 Bcise] Ezetimibe [Zetia] 10 mg PO DAILY 01/13/18 09/30/21 Fenofibric Acid (Choline) 135 mg PO DAILY 01/13/18 09/30/21 [Fenofibric Acid] Ferrous Sulfate [Ferrous Sulfate 325 mg PO DAILY 01/13/18 09/30/21 325mg Tablet] Garlic 1,000 mg PO DAILY 01/13/18 09/30/21 Metformin HCl [Metformin HCl ER] 500 mg PO BID 01/13/18 09/30/21 Multivitamin [One Daily] 1 each PO DAILY 01/13/18 09/30/21 Strawn-3 Fatty Acids/Fish Oil [Fish 1 each PO DAILY 01/13/18 09/30/21 Oil 1,000 mg Capsule] Sitagliptin Phosphate [Januvia 100 mg PO DAILY 01/13/18 09/30/21 100mg tablet] Valsartan/Hydrochlorothiazide 1 each PO DAILY 01/13/18 09/30/21 [Valsartan-Hctz 320-25 mg Tab] naproxen 500 mg tablet 500 mg PO DAILY tab 10/31/18 09/30/21 glimepiride 4 mg tablet 4 mg PO DAILY tab 05/08/19 09/30/21 cyanocobalamin (vitamin B-12) 1,000 mcg PO DAILY 08/08/19 09/30/21 1,000 mcg capsule famotidine 40 mg ta
[2021-10-29 01:45] VITALS: BP 152/61; PULSE 74; RESP 18; TEMP 36.8; O2SAT 95
== END 2021-10-29 01:56 | disposition home or self-care (01) ==
PROVIDERS: Emergency Provider Emergency Medicine; PCP Family Medicine
DX: R04.0 Epistaxis (principal); D68.32 Hemorrhagic disorder due to extrinsic circulating anticoagulants; T45.525A Adverse effect of antithrombotic drugs, initial encounter; Z79.899 Other long term (current) drug therapy; Z88.2 Allergy status to sulfonamides; I48.91 Unspecified atrial fibrillation; E11.9 Type 2 diabetes mellitus without complications; I25.10 Atherosclerotic heart disease of native coronary artery without angina pectoris; I10 Essential (primary) hypertension; E78.5 Hyperlipidemia, unspecified; K21.9 Gastro-esophageal reflux disease without esophagitis; Z87.891 Personal history of nicotine dependence
CPT/HCPCS: 99283

== ENCOUNTER → 2022-03-25 13:11 | Outpatient (CLI) | payer MEDICARE, SELFPAY ==
--- NOTE | 2022-03-25 13:13 | MM_ITS ---
PROCEDURE INFORMATION: Exam: MG Bilateral Screening 3D Mammography Exam date and time: 03/25/2022 1:05 PM Age: 71 years old Clinical indication: Screening examination TECHNIQUE: Imaging protocol: Bilateral Screening tomosynthesis and 2D mammography including computer-aided detection (CAD) when performed. COMPARISON: 1. MG MM DIG SCREENING MAMM BI W/CAD 01/19/2021 2:03 PM 2. MG MM DIG MAMM BI DX W/CAD 07/17/2020 3:01 PM FINDINGS: MAMMOGRAPHY: Breast composition: There are scattered areas of fibroglandular density. Mass: None. Architectural distortion: None. Calcifications: No suspicious calcifications. Asymmetric density: None. Skin thickening: None. Axillary adenopathy: None. IMPRESSION: No mammographic evidence of malignancy. Annual screening is recommended unless otherwise clinically indicated. ASSESSMENT: BI-RADS Category 1: Negative
== END ==
PROVIDERS: PCP Family Medicine; Visit Provider Family Medicine
DX: Z12.31 Encounter for screening mammogram for malignant neoplasm of breast (principal)
CPT/HCPCS: 77063; 77067

== ENCOUNTER 2022-04-13 08:22 | Day surgery (SDC) | payer MEDICARE, SELFPAY ==
[2022-04-08 10:24] VITALS: BMI 38.7
[2022-04-13 08:49] VITALS: BP 151/62; PULSE 79; RESP 18; TEMP 36.4; O2SAT 95
--- NOTE | 2022-04-13 09:07 | EXP.ANES.CKL ---
[facility] Disclaimer: The information contained in this section may have been updated after the patient was seen, as this information can be updated by other users. Medical History (Updated 04/08/22 @ 10:21 by Noé Thompson RN) Aortic stenosis CAD (coronary artery disease) Diabetes GERD (gastroesophageal reflux disease) HHD (hypertensive heart disease) Murmur, heart PAF (paroxysmal atrial fibrillation) Surgical History (Updated 04/08/22 @ 10:22 by Noé Thompson RN) History of coronary artery stent placement Family History (Updated 04/08/22 @ 10:23 by Néo Thompson RN) Other Family history of heart disease Family history of hypertension Social History (Updated 04/08/22 @ 10:21 by Noé Thompson RN) Smoking Status: Former smoker alcohol intake: never substance use type: denies use current occupational status: retired Travel in the last 8 weeks: None household members: spouse housing: house [facility] Anesthesia Checklist Patient Identification Patient Identification: Arm Band Structural Data Admitted From: Home Planned Operative Procedure/s: colonoscopy Consent for Planned Operative Procedure(s) Verified: Yes Verified Documents: Surgical Consent and History and Physical NPO Status Verified Time NPO: 00:00 Additional verifications Anesthesia Reactions: No Hx Blood Transfusions: No Blood Transfusion Reaction: No Airway Assessment C-Spine Mobility Assessed: Yes TMJ Mobility Assessed: Yes Dentition: Good Dentition Neurological Assessment Level of Consciousness: Awake and Alert Anesthesia Plan Anesthesia Risk discussed: Yes Anesthesia Plan: Verified ASA Class: III Anesthesia Type: MAC
[2022-04-13 09:28] LABS: POC Glucose,Bedside 153 (70-110)
[2022-04-13 09:46] VITALS: O2SAT 97
[2022-04-13 10:32] VITALS: BP 127/63; PULSE 90; RESP 18; TEMP 37.4; O2SAT 94
--- NOTE | 2022-04-13 10:32 | HMH.SCOPE ---
Procedure: Date: 04/13/22 Patient Date of :: 1950 Procedure Performed:: Colonoscopy with polypectomy Indications:: Positive Cologuard Performing Provider:: Seth Sam MD Referring Provider:: Dr. Blakely Sedation:: Monitored anesthesia care Procedure:: After informed consent was obtained the patient was taken to the endoscopy suite. Sedation ensued after the patient was transferred to the left lateral decubitus position. Pulse, blood pressure, and oxygen saturation were monitored throughout the procedure. Digital rectal exam revealed no significant abnormality. The colonoscope was placed in position. The entire colon was evaluated. The colonoscope was carefully removed and the patient was transferred to recovery in stable condition. Please see findings and specimens below for detail. Findings:: Bowel preparation fairly poor Hemorrhoidal cushions Severe diverticulosis (scattered) Profound lack of relaxation/spasticity Adjacent sessile polyps at 45 cm Specimens:: Adjacent sessile polyps at 45 cm (cold snare) Recommendations:: Timing of repeat colonoscopy is pending pathology but will likely be around 6-12 months with extended bowel preparation Consider barium enema secondary to recent positive Cologuard and limitations in visualization on colonoscopy Complications:: No immediate Estimated blood obtained (mL): 1
[2022-04-13 10:42] VITALS: BP 138/60; PULSE 92; RESP 17; O2SAT 98
[2022-04-13 10:52] VITALS: BP 163/91; PULSE 87; RESP 18; O2SAT 99
[2022-04-13 11:02] VITALS: BP 144/83; PULSE 86; RESP 19; O2SAT 98
== END 2022-04-13 11:05 | disposition home or self-care (01) ==
PROVIDERS: PCP Family Medicine; Visit Provider Surgery
PROC: 0DJD8ZZ Inspection of Lower Intestinal Tract, Via Natural or Artificial Opening Endoscopic (ICD-10-PCS; principal; 2022-04-13 09:30)
DX: R19.5 Other fecal abnormalities (principal); K63.5 Polyp of colon; K57.30 Diverticulosis of large intestine without perforation or abscess without bleeding; E11.9 Type 2 diabetes mellitus without complications
CPT/HCPCS: 45385; 82962; 88305; J1610; J2704

== ENCOUNTER → 2022-04-29 10:48 | Outpatient (CLI) | payer MEDICARE, SELFPAY ==
--- NOTE | 2022-04-29 10:55 | XR_ITS ---
FINAL REPORT CLINICAL HISTORY: BURSITIS COMPARISON: No prior submitted for comparison. FINDINGS: AP and frog leg views of the right hip were obtained. There is no prior exam for comparison. There is no acute fracture or dislocation. There is degenerative joint disease, similar to left hip. Soft tissues are within normal limits. IMPRESSION: No acute osseous abnormality of the right hip. If pain persists, MR is recommended. Reviewed, Interpreted and Dictated by Carrie Aragon MD Transcribed by Noni Groves Authenticated and [facility]
== END ==
PROVIDERS: PCP Family Medicine; Visit Provider Family Medicine
DX: M25.551 Pain in right hip (principal); M70.61 Trochanteric bursitis, right hip
CPT/HCPCS: 73502

== ENCOUNTER → 2022-06-11 09:40 | Outpatient (CLI) | payer MEDICARE, SELFPAY ==
--- NOTE | 2022-06-11 09:40 | FL_ITS ---
FINAL REPORT CLINICAL HISTORY: ft - 6.36 min FINDINGS: BARIUM ENEMA HISTORY: Incomplete colonoscopy. PROCEDURE: Single-contrast barium was introduced by gravity drip. Spot and overhead films were obtained. Fluoroscopy time: 6 minutes 36 seconds. 21 images were obtained. 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 Retained stool limits mucosal detail. The colon is redundant. In addition, air throughout the colon limits the study. No constricting or obstructing lesions are identified to the level of the cecum. There is pandiverticulosis. IMPRESSION: Pandiverticulosis. No constricting or obstructing lesions to the level the cecum. Films reviewed , interpreted and dictated by Dr. Aragon Transcribed by Jamie Costello PA-C. Reviewed, Interpreted and Dictated by Carrie Aragon MD Transcribed by NATALIE Boateng Authenticated and [facility]
== END ==
PROVIDERS: PCP Family Medicine; Visit Provider Surgery
DX: K63.5 Polyp of colon (principal)
CPT/HCPCS: 74270

== ENCOUNTER → 2022-08-19 09:18 | Outpatient (CLI) | payer MEDICARE, SELFPAY | PROVIDERS: PCP Family Medicine; Visit Provider Nurse Practitioner | DX: E11.9 Type 2 diabetes mellitus without complications (principal); E78.2 Mixed hyperlipidemia; I11.9 Hypertensive heart disease without heart failure; I25.10 Atherosclerotic heart disease of native coronary artery without angina pectoris; I35.0 Nonrheumatic aortic (valve) stenosis; I48.0 Paroxysmal atrial fibrillation; R01.1 Cardiac murmur, unspecified; Z79.84 Long term (current) use of oral hypoglycemic drugs | CPT/HCPCS: 93306 ==

== ENCOUNTER 2023-03-15 07:25 | Day surgery (SDC) | payer MEDICARE, SELFPAY ==
[2023-01-10 10:24] VITALS: BMI 38.8
[2023-03-11 15:49] VITALS: BMI 39.0
[2023-03-15 07:47] VITALS: BP 155/57; PULSE 80; RESP 17; TEMP 36.2; O2SAT 95
--- NOTE | 2023-03-15 07:47 | HMH.SCOPE ---
Procedure: Date: 03/15/23 Patient Date of :: 1950 Procedure Performed:: Colonoscopy (aborted) Extended flexible sigmoidoscopy Indications:: History of colon polyps History of positive Cologuard Note: Colonoscopy in April 2022 was somewhat complicated by poor bowel preparation and poor relaxation. Fairly severe diverticulosis noted. Hemorrhoids also confirmed. Polyps 45 cm excised. Follow-up barium enema revealed no obvious lesion. Secondary to positive Cologuard and difficulty in visualization she now returns for short-term repeat evaluation. Performing Provider:: Seth Sam MD Referring Provider:: . Sedation:: Monitored anesthesia care Procedure:: After informed consent was obtained the patient was taken to the endoscopy suite. Sedation ensued after the patient was transferred to the left lateral decubitus position. Pulse, blood pressure, and oxygen saturation were monitored throughout the procedure. Digital rectal exam revealed no significant abnormality. The colonoscope was placed in position. Poor bowel preparation noted. As the colonoscope was advanced visualization became increasingly limited. The decision was made to forego additional attempts. The colonoscope was carefully removed and the patient was transferred to recovery in stable condition. Please see findings and specimens below for detail. Findings:: Hemorrhoidal cushions Diverticulosis Bowel preparation exceedingly poor Colonoscopy aborted secondary to above findings Specimens:: None Recommendations:: Gastroenterology consultation secondary to poor preparation on multiple occasions (chronic constipation), history of colon polyps, and history of positive Cologuard. Short-term repeat colonoscopy warranted (deferred to gastroenterology service). Complications:: Colonoscopy aborted (extended flexible sigmoidoscopy completed with limited visualization) secondary to poor bowel preparation Estimated blood obtained (mL): 0 Colonoscopy Component Colonoscopy Component Was a colonoscopy performed during today's procedure?: Yes Recommended follow up colonoscopy of at least 10 years?: No If no, follow up colonoscopy recommended in ___ years?: (See above) Reason for not recommending >/= 10 yr follow-up interval?: (See above)
--- NOTE | 2023-03-15 08:06 | P.PNANES_ITS ---
[facility] Disclaimer: The information contained in this section may have been updated after the patient was seen, as this information can be updated by other users. Medical History Allergies Angina pectoris Aortic stenosis CAD (coronary artery disease) Diabetes DM2 (diabetes mellitus, type 2) GERD (gastroesophageal reflux disease) HHD (hypertensive heart disease) History of anemia History of COVID-19 Hypertension Murmur, heart PAF (paroxysmal atrial fibrillation) SOB (shortness of breath) on exertion Surgical History History of colonoscopy History of coronary artery stent placement Family History Other Family history of heart disease Family history of hypertension Social History Smoking Status: Former smoker alcohol intake: never substance use type: denies use current occupational status: retired Travel in the last 8 weeks: None household members: spouse housing: house [facility] Anesthesia Checklist Patient Identification Patient Identification: Arm Band, Family and Verbal (Name & ) Structural Data Admitted From: Home Planned Operative Procedure/s: Colonoscopy Consent for Planned Operative Procedure(s) Verified: Yes Verified Documents: Surgical Consent and History and Physical NPO Status Verified Time NPO: 02:30 Chart Verification Results Verified: CBC, BMP and ECG Additional verifications Fingerstick Blood Glucose: 183 Patient : No Anesthesia Reactions: No Hx Blood Transfusions: No Blood Transfusion Reaction: No Cardiovascular Assessment Heart Sounds: S1 & S2 Pulse Rhythm: Irregular Peripheral Edema: No Airway Assessment Mallampati Score:: Class II C-Spine Mobility Assessed: Yes (FROM) TMJ Mobility Assessed: Yes Dentition: Poor Dentition (Nothing loose per pt.) Neurological Assessment Level of Consciousness: Awake, Alert, Appropriate and Follows Commands Hx Seizures: No Numbness or tingling in extremities: No Anesthesia Plan Anesthesia Risk discussed: Yes Anesthesia Plan: Verified ASA Class: III Anesthesia Type: MAC
[2023-03-15 08:28] VITALS: BP 135/64; PULSE 71; RESP 15; TEMP 36.6; O2SAT 93
[2023-03-15 08:38] VITALS: BP 150/71; PULSE 73; RESP 17; O2SAT 95
[2023-03-15 08:48] VITALS: BP 165/76; PULSE 74; RESP 17; O2SAT 95
[2023-03-15 08:58] VITALS: BP 158/68; PULSE 74; RESP 16; O2SAT 96
[2023-03-15 10:18] LABS: POC Glucose,Bedside 183 (70-110)
--- NOTE | 2023-03-15 11:35 | P.PNANES_ITS ---
[facility] Anesthesia Record Part I Anesthesia Record I Intake, IV Amount: 350 Hydration: Adequate Estimated blood loss (mL): 0 Urine output (mL): 0 Blood Products used (#): none Blood Pressure: 135/64 SaO2: 93 Pulse Rate: 72 Airway Patency: Patent Respiratory Rate: 18 Temperature: 97.9 F Patient is:: Awake and Stable Stable to PACU at:: 08:33
[2023-03-15 11:36] VITALS: BP 135/64; PULSE 72; RESP 18; TEMP 36.6; O2SAT 93
== END 2023-03-15 08:58 | disposition home or self-care (01) ==
PROVIDERS: PCP Family Medicine; Visit Provider Surgery
PROC: 0DJD8ZZ Inspection of Lower Intestinal Tract, Via Natural or Artificial Opening Endoscopic (ICD-10-PCS; CPT 45378; principal; 2023-03-15 08:30)
DX: R19.5 Other fecal abnormalities (principal); Z86.010 Personal history of colon polyps; Z91.199 Patient's noncompliance with other medical treatment and regimen due to unspecified reason; K57.30 Diverticulosis of large intestine without perforation or abscess without bleeding; E11.9 Type 2 diabetes mellitus without complications
CPT/HCPCS: 45378; 82962

== ENCOUNTER → 2023-03-17 07:13 | Outpatient (CLI) | payer MEDICARE, SELFPAY ==
--- NOTE | 2023-03-17 07:13 | NM_ITS ---
APPROVED REPORT Exam: Nuclear Stress Test Indication: chest pain..high bp...high cholesterol Patient Location: Outpatient Stress Tech: Shannon Mckeon [place] Tech:SELINA Bhatt RT(R)(N) Ht: 5 ft 0 in Wt: 200 lbs Bra Size: 44c HR: 74 bpm BP: 171/70 mmHg BSA: 1.87 m2 Rhythm: NSR TID: 1.22 History: chest pain..high bp...high cholesterol Procedure: Patient received 0.4 mg of intravenous Lexiscan, resting heart rate 74 bpm, resting blood pressure 171/70 mmHg, with Lexiscan maximum heart rate achieved was 88 bpm which is 85 % of the maximum predicted heart rate and blood pressure was 171/70 mmHg. With Lexiscan, patient denied any complaint of chest pain. The patient was not able to lay on her abdomen for prone images. Cardiac Stress and Resting SPECT Images: Cardiac Stress and Resting SPECT images were obtained using technetium 99m Myoview 31.6 mCi stress and 10.95 mCi at rest. The patient could not lie on her abdomen. Therefore, prone stress imaging could not be performed. This may affect the diagnostic interpretation of the study findings. Resting and stress imaging in supine position demonstrate no evidence of fixed or reversible perfusion defects. There is increased transient ischemic dilatation ratio (TID 1.22), suggestive of possible multivessel disease or balanced ischemia. Gated imaging demonstrates normal global and regional LV systolic function. LVEF is calculated at 71%. Conclusion: No evidence of fixed or reversible perfusion defects. There is increased transient ischemic dilatation ratio (TID 1.22), suggestive of possible multivessel disease or balanced ischemia. Gated imaging demonstrates normal global and regional LV systolic function. LVEF is calculated at 71%. Electronically signed by : Edilma Robertson MD 03/17/2023 15:33:23
--- NOTE | 2023-03-17 09:43 | CA_ITS ---
APPROVED REPORT Exam: Pharmacologic Technologist: Shannon Dvaidson, Ht: 5 ft 0 in Wt: 204 lbs BSA: 1.88 m2 HR: 74 bpm BP: 171/70 mmHg Rhythm: NSR Medical History Medications: Ferrous sulfate,,,,, Gabapentin,,,,, Farxiga,,,,, Tylenol,,,,, Norvasc,,,,, CloPIdogrel,,,,, Januvia,,,,, Famotidine,,,,, Toprol XL,,,,, RoSUVASTATIN,,,,, SpirOnALACTONE,,,,, GlimeRIDE,,,,, Stress Test Details Test: LEXISCAN Reason for pharmacologic stress test: physical limitation. HR Resting HR: 74 bpm Max Heart Rate (APMHR): 147 bpm Max HR Achieved: 88 bpm Target HR (85% APMHR): 125 bpm % of APMHR: 60 Recovery HR: 74 bpm BP Resting BP: 171.0/70.0 mmHg Max BP: 171.0/70.0 mmHg Recovery BP: 148.0/55.0 mmHg ECG Resting ECG: NSR, low voltage QRS, rightward axis, borderline first-degree AVB. Stress ECG: No significant ST changes Arrhythmia: None Clinical Exercise duration: 04:01 min Highest Stage Achieved: Stress ECG Conclusion Symptoms: Mild SOA, head & stomach discomfort. No CP. Arrhythmias/Ectopy: None ST-T Changes: No significant ST changes. Conclusion: Unremarkable Lexiscan stress. Myoview images reported separately. Test Summary REST . . . . . . . Resting REST 05:59 . . 74 . 171/ 70 . . Stage 1 01:00 . . 88 . . . . Stage 2 01:00 . . 83 . 166/ 63 . . Stage 3 01:00 . . 79 . 168/ 61 . . Stage 4 01:00 . . 76 . 159/ 57 . . Stage 4 01:01 . . 76 . 159/ 57 . Stop exercise at 04:01 RECOVERY 01:00 . . 74 . . . . RECOVERY 02:00 . . 73 . 153/ 58 . . RECOVERY 03:00 . . 74 . 148/ 55 . . RECOVERY 03:19 . . 73 . 148/ 55 . . Electronically signed by : Edilma Robertson MD 03/17/2023 15:31:51
== END ==
PROVIDERS: PCP Family Medicine; Visit Provider Nurse Practitioner Family
DX: R07.89 Other chest pain (principal); I11.9 Hypertensive heart disease without heart failure; I25.10 Atherosclerotic heart disease of native coronary artery without angina pectoris; I35.0 Nonrheumatic aortic (valve) stenosis; I48.0 Paroxysmal atrial fibrillation; R06.02 Shortness of breath; E78.5 Hyperlipidemia, unspecified; E11.9 Type 2 diabetes mellitus without complications; Z79.84 Long term (current) use of oral hypoglycemic drugs; Z87.891 Personal history of nicotine dependence
CPT/HCPCS: 78452; 93017; 93018; A9502; J2785

== ENCOUNTER 2023-05-10 10:41 | Outpatient (CLI) | payer MEDICARE, SELFPAY ==
--- NOTE | 2023-05-10 10:45 | MM_ITS ---
PROCEDURE INFORMATION: Exam: MG Bilateral Screening 3D Mammography Exam date and time: 05/10/2023 10:46 AM Age: 72 years old Clinical indication: Screening examination TECHNIQUE: Imaging protocol: Bilateral Screening tomosynthesis and 2D mammography including computer-aided detection (CAD) when performed. COMPARISON: 1. MG MM DIG SCREENING MAMM BI W/CAD 03/25/2022 1:05 PM 2. MG MM DIG SCREENING MAMM BI W/CAD 01/19/2021 2:03 PM FINDINGS: MAMMOGRAPHY: Breast composition: There are scattered areas of fibroglandular density. Mass: None. Architectural distortion: None. Calcifications: No suspicious calcifications. Asymmetric density: None. Skin thickening: None. Axillary adenopathy: None. IMPRESSION: No mammographic evidence of malignancy. Annual screening is recommended unless otherwise clinically indicated. ASSESSMENT: BI-RADS Category 1: Negative
== END 2023-05-10 23:59 ==
LOC: RAD 10:41
PROVIDERS: PCP Family Medicine; Visit Provider Family Medicine
DX: Z12.31 Encounter for screening mammogram for malignant neoplasm of breast (principal)
CPT/HCPCS: 77063; 77067

== ENCOUNTER 2023-05-30 11:25 | Observation (INO) | payer MEDICARE, SELFPAY ==
[2023-05-30] VITALS (21 sets, daily range): BP systolic 122–165; BP diastolic 51–87; PULSE 52–66; RESP 16–20; TEMP 36.4–36.8; O2SAT 89–99; BMI 40.0; BMI 39.4
--- NOTE | 2023-05-30 07:53 | IR_ITS ---
APPROVED REPORT Patient Location: Outpatient Blunger: SELINA Muhammad RT (R) PROCEDURES Left heart catheterization Left ventriculogram Selective coronary angiogram Drug-eluting stent deployment to the ostial proximal left main artery Drug-eluting stent deployment to the ostial proximal LAD Intravascular ultrasound to the left main artery and LAD INDICATION High risk abnormal Myoview, Angina pectoris, Coronary artery disease, Complex percutaneous intervention in which IVUS guidance reduces morbidity mortality, Informed consent was obtained prior to the procedure. COMPLICATIONS None Estimated Blood Loss: Less than 10 mls TECHNIQUE One percent lidocaine used to anesthetize the right anterior aspect of the wrist. The right radial artery was accessed via the Seldinger technique. A 6 Danish sheath was placed in the right radial artery. 2.5 mg of Verapamil, 800 mcg of nitroglycerin, 1mg Lidocaine and 5000 U Heparin were given through the arterial sheath. The papa catheter was also used to perform left heart catheterization, left ventriculogram and selective coronary angiogram. At the end of the diagnostic angiogram therapeutic heparin was administered giving a therapeutic ACT and the guide catheter was placed outside the left main artery and the left coronary cusps. Dampening occurred each time the catheter engage the left main artery. A Choice PT active support wire was placed into the LAD and a 4 mm x 12 mm Cody frontier stent was deployed at 20 jan in the ostial proximal LAD reducing the stenosis. Intravascular ultrasound probe was advanced which demonstrated there was good stent apposition however the stent was slightly under deployed and eccentric calcification persisted. Distally in the left main artery an MLA of 4.6 mm??? was identified which extended into the LAD. The plaque burden was not encroaching upon the circumflex artery therefore this procedure looks ideal for additional stenting into the LAD. The LAD was also severely stenosed proximally with a heavy plaque burden in excess of 70%. At this point an additional 4 mm x 22 mm Cody frontier stent was deployed at 20 jan further reducing the stenosis. The balloon was brought back into the proximal LAD extending back into the distal left main artery and then deployed at 24 jan to further post dilate. There was no angiographic jailing or stenosis or encroachment upon the circumflex artery. After achieving JUAN-3 results before and after the procedure with excellent angiographic results the apparatus was removed the sheath was removed and hemostasis was achieved using TR banding patient was transferred to the postop holding in stable condition ANGIOGRAPHIC RESULTS The left main artery Has an ostial calcified 60 to 70% stenosis by angiography with distal greater than 50% stenosis by IVUS criteria and plaque burden The left anterior descending artery Has high-grade greater than 70% plaque burden in the ostial proximal LAD with an angiographic stenosis of 30 to 40%. The circumflex artery Large and codominant and has proximal 10% stenosis with mid vessel 30 to 40% calcified stenoses which extend into a large first obtuse marginal artery a medium sized second obtuse marginal artery The right coronary artery Is codominant and has proximal 40% calcified stenosis with a mid vessel calcified 60 to 70% stenosis and a distal calcified 60% stenosis The MOLINA ventriculogram reveals Normal 60% The left ventricular end-diastolic pressure 20 mmHg IMPRESSION Severe left main disease as described above which extended into the distal left main and into the proximal LAD by IVUS with successful percutaneous revascularization of the ostial proximal mid distal left main artery with additional stenting into the ostial proximal LAD reducing the stenosis to less than 10% by angiography Persistent moderate disease throughout the circumflex artery Persistent moderate to severe calcified diffuse disease throughout the codominant right coronary Normal ejection fraction Evaded LVEDP PLAN 1. Dual antiplatelet therapy 2. Cardiac rehabilitation 3. Patient should be admitted overnight due to the complexity of the procedure as well as renal insufficiency. IV fluids should be given and repeat chemistry panel in the morning should be obtained 4. Avoidance of tobacco products 5. LDL less than 55 to be achieved with high intensity statin 6. For the time being I would like to treat the right coronary artery medically. I believe the abnormal stress test and angina stent from the severe stenosis throughout the left main artery and LAD system. If patient continues to experience angina pectoris consideration could be given to bring her back and undergo revascularization and reconstruction of the right coronary artery. Based on the angiographic appearance I am of the opinion the right coronary artery was likely not producing symptoms Electronically signed by : Laron Valerio MD 05/30/2023 10:28:43
[2023-05-30 08:14] LABS: Basophils # 0.1 K/mm3 (0-0.2); Basophils % 0.7 % (0.1-2.0); Eosinophils # 0.1 K/mm3 (0.0-0.4); Eosinophils % 1.6 % (0.1-12.0); Hematocrit 36.9 % (37.0-47.0); Hemoglobin 12.1 g/dL (12.2-16.2); Lymphocytes # 1.6 K/mm3 (0.7-4.5); Lymphocytes % 22.5 % (10-50); Mean Corpuscular HGB Conc 32.9 g/dL (31.8-35.4); Mean Corpuscular Volume 85.2 fl (81-99); Mean Platelet Volume 9.2 fl (7.4-10.4); Monocytes # 0.3 K/mm3 (0.1-1.0); Monocytes % 4.4 % (1.7-9.3); Neutrophils # 4.9 K/mm3 (1.8-7.8); Neutrophils % 70.9 % (37.0-80.0); Platelet Count 207 K/mm3 (142-424); Red Blood Count 4.33 M/mm3 (4.20-5.40); Red Cell Distribution Width 14.6 % (11.5-17.5); White Blood Count 6.9 K/mm3 (4.8-10.8)
[2023-05-30 08:21] LABS: Chloride 104 mmol/L (98-107); Sodium 140 mmol/L (136-145)
[2023-05-30 08:22] LABS: Potassium 5.4 mmoL/L (3.5-5.1)
[2023-05-30 08:24] LABS: Blood Urea Nitrogen 31 mg/dl (7-17); Creatinine Clearance Estimated 53 mL/min (50-200); Estimated Glomerular Filt Rate 37 ml/min (>60); GFR (African American) 45 ML/MIN (>60)
[2023-05-30 08:25] LABS: Anion Gap 11.4 mEq/L (5-15); Calcium 10.2 mg/dl (8.4-10.2); Carbon Dioxide 30 mmol/L (22.0-30.0); Glucose 148 mg/dl (74-100)
[2023-05-30] MEDS: LIDOCAINE 1% 10ML MDV 20 ML IJ (09:56)
[2023-05-30] MEDS: NITROGLYCERIN 800MCG/8ML SYR (CATH LAB) 800 MCG IA (09:56)
[2023-05-30] MEDS: VERAPAMIL 2.5MG/ML 2ML VIAL 2.5 MG IV (09:56)
[2023-05-30] MEDS: diphenhydrAMINE 50MG/ML VIAL 50 MG IV (09:56)
[2023-05-30] MEDS: 0.9 % SODIUM CHLORIDE 500 ML 25 ML IV (09:57)
[2023-05-30] MEDS: HEPARIN 1,000 UNITS/500ML NS (CATH LAB) 3000 UNIT IV (09:57)
[2023-05-30] MEDS: HEPARIN 1,000 UNITS/ML 10ML VIAL (CATH LAB) 10000 UNIT IV (09:57)
[2023-05-30] MEDS: MIDAZOLAM HCL 1MG/1ML 5ML VIAL 1 MG IV (09:58)
[2023-05-30] MEDS: FENTANYL 100MCG/2ML VIAL 50 MCG IV (09:58)
[2023-05-30] MEDS: IOPAMIDOL-370 (76%);100ML BOTTLE 90 ML IV (10:45)
[2023-05-30 10:47] LABS: CATHL Activated Clotting Time 285 SEC (74-125)
--- NOTE | 2023-05-30 11:36 | HMH.PHAINT1 ---
Pharmacy Intervention Comments: MEDICATION RECONCILIATION COMPLETED ON PATIENT USING EXTERNAL FILL HISTORY FROM PHARMACY AND LIST FROM CARDIOLOGY OFFICE. -KELLY ROMAN, LILLIANAD
--- NOTE | 2023-05-30 11:44 | PC.NURSE ---
arrived by jorjeer from [employer]
--- NOTE | 2023-05-30 16:29 | EXP.HP ---
History of Present Illness *Admission Date: 05/30/23 *Reason for visit:: Complex cardiac catheterization and renal insufficiency *History of present illness: Ms. Sousa is a 72-year-old female with a history of obesity, hypertension, type 2 diabetes mellitus, hyperlipidemia, GERD, iron deficiency anemia,Lumbar radicular pain who was admitted to the medical floor after cardiac catheterization. The procedure was complex and it was felt she needed to have an overnight stay also for renal insufficiency to receive IV fluids. Patient describes shortness of breath over the last few months and has experienced some left anterior chest burning. She has been followed by cardiology. She did have a positive stress test and thus cardiac catheterization was scheduled. Cardiac cath results are as follows: ANGIOGRAPHIC RESULTS The left main artery Has an ostial calcified 60 to 70% stenosis by angiography with distal greater than 50% stenosis by IVUS criteria and plaque burden The left anterior descending artery Has high-grade greater than 70% plaque burden in the ostial proximal LAD with an angiographic stenosis of 30 to 40%. The circumflex artery Large and codominant and has proximal 10% stenosis with mid vessel 30 to 40% calcified stenoses which extend into a large first obtuse marginal artery a medium sized second obtuse marginal artery The right coronary artery Is codominant and has proximal 40% calcified stenosis with a mid vessel calcified 60 to 70% stenosis and a distal calcified 60% stenosis The MOLINA ventriculogram reveals Normal 60% The left ventricular end-diastolic pressure 20 mmHg IMPRESSION Severe left main disease as described above which extended into the distal left main and into the proximal LAD by IVUS with successful percutaneous revascularization of the ostial proximal mid distal left main artery with additional stenting into the ostial proximal LAD reducing the stenosis to less than 10% by angiography Persistent moderate disease throughout the circumflex artery Persistent moderate to severe calcified diffuse disease throughout the codominant right coronary Normal ejection fraction Evaded LVEDP At the time of this exam patient has just returned from the restroom and ambulated without difficulty. She is sitting on the side of the bed and appears quite comfortable. She denies chest pain and shortness of breath. [facility] Disclaimer: The information contained in this section may have been updated after the patient was seen, as this information can be updated by other users. Medical History Abnormal findings on diagnostic imaging of heart and coronary circulation Allergies Angina pectoris Aortic stenosis CAD (coronary artery disease) DM2 (diabetes mellitus, type 2) GERD (gastroesophageal reflux disease) HHD (hypertensive heart disease) History of anemia History of COVID-19 History of left heart catheterization Hypertension Murmur, heart PAF (paroxysmal atrial fibrillation) SOB (shortness of breath) on exertion Surgical History History of colonoscopy History of coronary artery stent placement Family History (Updated 05/30/23 @ 16:41 by Noni Rao APRN) Family history of heart disease Diabetes Family history of hypertension Social History (Updated 05/30/23 @ 12:05 by Lo Flood, RN) Smoking Status: Former smoker alcohol intake: never substance use type: denies use current occupational status: retired Travel in the last 8 weeks: None household members: spouse housing: house Review of Systems Constitutional Constitutional: Denies body ache(s), Denies chills, Denies fatigue, Denies fever(s), Denies frequent falls and Denies headache(s) Eyes Eyes: Denies change in vision ENT Ears, Nose, Mouth, and Throat: Denies dizziness, Reports dry mouth, Denies otalgia, Denies headache(s), Denies nasal congestion, Denies nasal discharge, Denies post nasal drip and Denies sore throat *Cardiovascular Cardiovascular: Reports chest pain, Reports dyspnea and Denies palpitations *Respiratory Respiratory: Denies chest congestion, Denies cough and Reports dyspnea *Gastrointestinal Gastrointestinal: Denies abdominal pain, Denies constipation, Denies diarrhea, Reports dyspepsia, Denies hematemesis, Denies hematochezia, Denies loose stools, Denies melena, Denies nausea and Denies vomiting *Genitourinary Genitourinary: Denies difficulty voiding *Musculoskeletal Musculoskeletal: Denies arthralgias *Neurologic Neurologic: Denies abnormal speech, Denies confusion, Denies dizziness, Denies frequent falls and Denies headache(s) Psychiatric Psychiatric: Denies confusion Endocrine Endocrine: Denies fatigue and Denies palpitations Meds Home Medications and Allergies Home Medications Medication Instructions Recorded Confirmed Type fenofibric acid (choline) 135 mg 135 mg PO DAILY Cholesterol 01/13/18 05/30/23 History capsule,delayed release (Trilipix) ferrous sulfate 325 mg (65 mg 325 mg PO DAILY Supplement 01/13/18 05/30/23 History iron) tablet multivitamin 1 each PO DAILY Supplement 01/13/18 05/30/23 History sitagliptin phosphate 100 mg 100 mg PO DAILY Diabetes 01/13/18 05/30/23 History tablet (Januvia) glimepiride 4 mg tablet 4 mg PO DAILY Diabetes 05/08/19 05/30/23 History cyanocobalamin (vitamin B-12) 1,000 mcg PO DAILY Supplement 08/08/19 05/30/23 History 1,000 mcg capsule famotidine 40 mg tablet 40 mg PO HS Acid Reflux 05/07/20 05/30/23 History gabapentin 600 mg tablet 600 mg PO BID Pain 08/07/21 05/30/23 History ascorbic acid (vitamin C) 500 mg 500 mg PO DAILY . 02/05/22 05/30/23 History capsule cholecalciferol (vitamin D3) 25 25 mcg PO DAILY Supplement 02/05/22 05/30/23 History mcg (1,000 unit) capsule zinc acetate 25 mg (zinc) capsule 25 mg PO DAILY Supplement 02/05/22 05/30/23 History (Galzin) rosuvastatin 20 mg tablet 20 mg PO DAILY Cholesterol #90 tabs 08/24/22 05/30/23 Rx spironolactone 25 mg tablet 25 mg PO DAILY Fluid 01/10/23 05/30/23 History dapagliflozin propanediol 10 mg 10 mg PO DAILY 02/03/23 05/30/23 History tablet (Farxiga) amlodipine 10 mg tablet (Norvasc) 10 mg PO BID High Blood Pressure 05/30/23 05/30/23 History aspirin 81 mg chewable tablet 81 mg PO DAILY 30 days #30 tabs 05/30/23 Rx ([place] Chewable Low Dose Aspirin) clopidogrel 75 mg tablet 75 mg PO DAILY Platelet Inhibitor 05/30/23 05/30/23 History insulin glargine 100 unit/mL (3 20 unit SQ DAILY Diabetes 05/30/23 05/30/23 History mL) subcutaneous pen (Lantus Solostar U-100 Insulin) metoprolol succinate 100 mg 100 mg PO DAILY High Blood Pressure 05/30/23 05/30/23 History tablet,extended release 24 hr (Toprol XL) rivaroxaban 20 mg tablet (Xarelto) 20 mg PO QPMWITHMEAL Blood 05/30/23 05/30/23 History Thinner/Afib valsartan 320 1 tab PO DAILY High Blood Pressure 05/30/23 05/30/23 History mg-hydrochlorothiazide 25 mg tablet New Prescriptions to Start Prescriptions: aspirin [[place] Chewable Aspirin] Laron Valerio Allergies Allergy/AdvReac Type Severity Reaction Status Date / Time Sulfa (Sulfonamide Allergy Verified 05/19/23 13:16 Antibiotics) Exam Data for Last 24 hours Vital signs and Labs for Last 24 Hours: Temp Pulse Resp BP Pulse Ox O2 Del Method O2 Flow Rate 98.3 F 58 L 18 145/58 H 93 L Room Air 3 05/30/23 08:02 05/30/23 13:45 05/30/23 13:45 05/30/23 13:45 05/30/23 13:45 05/30/23 15:00 05/30/23 11:30 Laboratory Results - last 24 hr 05/30/23 08:05: WBC 6.9, RBC 4.33, Hgb 12.1 L, Hct 36.9 L, MCV 85.2, MCH 28.0, MCHC 32.9, RDW 14.6, Plt Count 207, MPV 9.2, Neut % (Auto) 70.9, Lymph % (Auto) 22.5, [place] % (Auto) 4.4, Eos % (Auto) 1.6, Baso % (Auto) 0.7, Neut # (Auto) 4.9, Lymph # (Auto) 1.6, [place] # (Auto) 0.3, Eos # (Auto) 0.1, Baso # (Auto) 0.1, Sodium 140, Potassium 5.4 H, Chloride 104, Carbon Dioxide 30, Anion Gap 11.4, BUN 31 H, Creatinine 1.40 H, Estimated Creat Clear 53, Estimated GFR 37 L, Est GFR ( Amer) 45 L, Glucose 148 H, Calcium 10.2 05/30/23 10:59: Activated Clotting Time 285 H* I & O for Last 24 hours: Intake & Output 05/28/23 05/29/23 05/30/23 05/31/23 11:59 11:59 11:59 11:59 Intake Total 360 / 360 Balance 360 / 360 Weight 205 lb 202 lb 5 oz Constitutional Constitutional: no acute distress and obese Comments: Sitting on the bedside after ambulating to the bathroom. She appears comfortable. *Routine HEENT Exam Head: Present normocephalic and atraumatic Eye: Present PERRL; Absent conjunctival icterus, scleral injection, conjunctivae pink or periorbital ecchymosis ENT: Present mucous membranes moist and oropharynx clear *Routine Neck Exam Neck: Present supple; Absent carotid bruit, lymphadenopathy, thyromegaly or tenderness *Routine Respiratory Exam Respiratory: Present CTA bilaterally (Anteriorly and posteriorly) *Routine Cardiovascular Exam Cardiovascular: Present RRR and murmur *Routine Abdominal Exam Abdominal: Present normoactive bowel sounds and obese; Absent tenderness or distended *Routine Rectal Exam Rectal:: deferred *Routine Genitalia Exam Genitalia:: deferred *Routine Extremities Exam Extremities: Present edema (Trace bilateral lower extremities) *Routine Neurological Exam Neurological: Present alert and oriented X3 Assessment and Plan *Assessment and plan (1) Malignant essential hypertension: Status: Chronic Category: Medical Code(s): I10 - Essential (primary) hypertension (2) HLD (hyperlipidemia): Status: Chronic Qualifiers: Hyperlipidemia type: mixed hyperlipidemia Qualified Code(s): E78.2 - Mixed hyperlipidemia Category: Medical Code(s): E78.5 - Hyperlipidemia, unspecified (3) Obesity (BMI 30-39.9): Status: Acute Category: Medical Code(s): E66.9 - Obesity, unspecified (4) History of coronary artery stent placement: Problem Comment: MAY 2018. Status: Chronic Category: Surgical Code(s): Z95.5 - Presence of coronary angioplasty implant and graft (5) Edema of lower extremity: Status: Acute Category: Medical Code(s): R60.0 - Localized edema (6) SOB (shortness of breath) on exertion: Status: Acute Category: Medical Code(s): R06.02 - Shortness of breath (7) DM2 (diabetes mellitus, type 2): Status: Chronic Qualifiers: Diabetes mellitus complication status: without complication Diabetes mellitus long term care social worker insulin use: without long term care social worker use Qualified Code(s): E11.9 - Type 2 diabetes mellitus without complications Category: Medical Code(s): E11.9 - Type 2 diabetes mellitus without complications (8) Aortic stenosis: Status: Acute Qualifiers: Cardiac valve disease etiology: etiology unspecified Qualified Code(s): I35.0 - Nonrheumatic aortic (valve) stenosis Category: Medical Code(s): I35.0 - Nonrheumatic aortic (valve) stenosis (9) PAF (paroxysmal atrial fibrillation): Status: Acute Category: Medical Code(s): I48.0 - Paroxysmal atrial fibrillation (10) Murmur, heart: Status: Chronic Category: Medical Code(s): R01.1 - Cardiac murmur, unspecified (11) CAD (coronary artery disease): Status: Chronic Qualifiers: Associated angina: without angina Coronary Disease-Associated Artery/Lesion type: [place] artery [place] vs. transplanted heart: [place] heart Qualified Code(s): I25.10 - Atherosclerotic heart disease of [place] coronary artery without angina pectoris Category: Medical Code(s): I25.10 - Atherosclerotic heart disease of [place] coronary artery without angina pectoris Plan Cardiology to follow. Receiving normal saline at 75 an hour. Will repeat labs in AM. Will add some of home meds and include sliding scale insulin.
[2023-05-30] MEDS: GABAPENTIN 600MG TABLET 600 MG PO (20:06)
[2023-05-30] MEDS: AMLODIPINE 10MG TABLET 10 MG PO (20:06)
[2023-05-30] MEDS: ATORVASTATIN 40MG TABLET 40 MG PO (20:06)
[2023-05-30] MEDS: humaLOG 100 UNITS/ML 3ML VIAL (SSI) SQ (20:07)
[2023-05-31] VITALS: BP 150/70; PULSE 60; PULSE 62; RESP 20; TEMP 36.4; O2SAT 91
[2023-05-31 04:00] VITALS: BP 137/70; PULSE 69; PULSE 70; RESP 20; TEMP 36.7; O2SAT 90; BMI 40.4
[2023-05-31] MEDS: 0.9 % SODIUM CHLORIDE 1000ML 1,000 ML 75 ML IV (04:03)
--- NOTE | 2023-05-31 04:55 | PC.NURSE ---
Pt is alert and oriented. This nurse took over care for patient around midnight. Right radial cath site, dressing CDI. Pt ambulates to the restroom. Pt has had no complaints throughout shift. Pt is receiving NS @ 75ml/hr. Lung sounds clear. Bowel sounds active. VSS. Call light in reach.
[2023-05-31 06:27] LABS: POC Glucose,Bedside 77 (70-110)
[2023-05-31] MEDS: SITAGLIPTIN 50MG TABLET 100 MG PO (06:30)
[2023-05-31 07:18] LABS: Basophils % 0.3 % (0.1-2.0); Eosinophils # 0.1 K/mm3 (0.0-0.4); Eosinophils % 1.3 % (0.1-12.0); Hematocrit 31.4 % (37.0-47.0); Lymphocytes # 1.6 K/mm3 (0.7-4.5); Lymphocytes % 27.2 % (10-50); Mean Corpuscular HGB Conc 32.8 g/dL (31.8-35.4); Mean Corpuscular Hemoglobin 27.2 pg (27.0-31.2); Mean Platelet Volume 8.9 fl (7.4-10.4); Monocytes # 0.3 K/mm3 (0.1-1.0); Monocytes % 5.1 % (1.7-9.3); Neutrophils # 3.8 K/mm3 (1.8-7.8); Neutrophils % 66.2 % (37.0-80.0); Platelet Count 193 K/mm3 (142-424); Red Blood Count 3.78 M/mm3 (4.20-5.40); Red Cell Distribution Width 14.8 % (11.5-17.5); White Blood Count 5.7 K/mm3 (4.8-10.8)
[2023-05-31 07:22] LABS: Chloride 108 mmol/L (98-107); Sodium 141 mmol/L (136-145)
[2023-05-31 07:25] LABS: Blood Urea Nitrogen 25 mg/dl (7-17); Carbon Dioxide 30 mmol/L (22.0-30.0); Creatinine Clearance Estimated 28 mL/min (50-200); Estimated Glomerular Filt Rate 44 ml/min (>60); GFR (African American) 53 ML/MIN (>60)
[2023-05-31 07:26] LABS: Glucose 70 mg/dl (74-100)
[2023-05-31 07:43] LABS: Hemoglobin 10.3 g/dL (12.2-16.2)
[2023-05-31 07:53] VITALS: BP 144/62; PULSE 71; RESP 18; TEMP 36.8; O2SAT 92
[2023-05-31 08:00] VITALS: PULSE 70
--- NOTE | 2023-05-31 08:06 | EXP.ACUTE.PN ---
Subjective *Date: 05/31/23 *Time: 08:53 Interval history: Patient states she is doing well. She enjoyed her dinner last night and as well as her breakfast this morning. She states she did sleep. She is ambulated to the bathroom without difficulties. She denies any chest pain and any shortness of breath. Labs this morning reveal BUN of 25 and creatinine of 1.2. Creatinine was 1.4 yesterday. CBC with a hemoglobin of 10.3 and hematocrit of 31.4. Weight is 206 this morning which is up 4 pounds. She remains on IV fluids at 75 an hour Medical Exam Vital signs and Labs for Last 24 Hours: Vital Signs Temp Pulse Pulse Resp BP Pulse Ox O2 Del Method 05/31/23 07:53 98.3 F 71 18 144/62 H 92 L Room Air 05/31/23 06:45 Room Air 05/31/23 05:00 Room Air 05/31/23 04:00 70 05/31/23 04:00 98.1 F 69 20 137/70 90 L Room Air 05/31/23 03:00 Room Air 05/31/23 01:00 Room Air 05/31/23 00:00 60 05/31/23 00:00 97.6 F 62 20 150/70 H 91 L Room Air 05/30/23 23:00 Room Air 05/30/23 20:00 66 05/30/23 21:00 Room Air 05/30/23 20:00 Room Air 05/30/23 20:00 97.5 F L 61 20 165/76 H 89 L 05/30/23 18:18 Room Air 05/30/23 17:00 Room Air 05/30/23 17:45 64 18 158/87 H 94 L Room Air 05/30/23 16:45 52 L 18 154/69 H 93 L Room Air 05/30/23 15:45 55 L 18 153/63 H 91 L Room Air 05/30/23 14:45 60 18 147/59 H 97 Room Air 05/30/23 16:00 60 05/30/23 15:00 Room Air 05/30/23 13:00 Room Air 05/30/23 12:40 60 05/30/23 13:45 58 L 18 145/58 H 93 L Room Air 05/30/23 13:15 58 L 18 132/58 L 95 Room Air 05/30/23 12:45 61 17 126/55 L 95 Room Air 05/30/23 12:15 60 16 139/55 L 93 L Room Air 05/30/23 11:45 60 16 157/69 H 95 Room Air 05/30/23 11:30 56 L 17 153/62 H 96 Nasal Cannula 05/30/23 11:15 55 L 17 125/54 L 99 Nasal Cannula 05/30/23 11:00 55 L 18 125/52 L 05/30/23 10:45 56 L 17 133/52 L 99 Nasal Cannula 05/30/23 10:40 59 L 17 122/51 L 90 L Room Air 05/30/23 10:35 60 17 129/51 L 90 L Room Air 05/30/23 10:30 64 05/30/23 10:28 60 18 137/57 L 93 L Room Air O2 Flow Rate 05/31/23 07:53 05/31/23 06:45 05/31/23 05:00 05/31/23 04:00 05/31/23 04:00 05/31/23 03:00 05/31/23 01:00 05/31/23 00:00 05/31/23 00:00 05/30/23 23:00 05/30/23 20:00 05/30/23 21:00 05/30/23 20:00 05/30/23 20:00 05/30/23 18:18 05/30/23 17:00 05/30/23 17:45 05/30/23 16:45 05/30/23 15:45 05/30/23 14:45 05/30/23 16:00 05/30/23 15:00 05/30/23 13:00 05/30/23 12:40 05/30/23 13:45 05/30/23 13:15 05/30/23 12:45 05/30/23 12:15 05/30/23 11:45 05/30/23 11:30 3 05/30/23 11:15 3 05/30/23 11:00 05/30/23 10:45 3 05/30/23 10:40 05/30/23 10:35 05/30/23 10:30 05/30/23 10:28 Intake and Output 05/30/23 05/31/2305/31/24 19:59 03:59 11:59 Intake Total 1017 / 1017 1268 / 2285 Output Total 0 / 0 250 / 250 0 / 250 Balance 1017 / 1017 -250 / 767 1268 / 5 Intake: Intake, Oral Amount 780 / 780 420 / 1200 Intake, Total IV Amount 848 / 848 0.9 % Sodium Chloride 1000ML 1, 848 / 848 000 ml @ 75 mls/hr IV .[id number] [facility] Rx#:[id number] Infusion Intake 237 / 237 0.9 % Sodium Chloride 1000ML 1, 237 / 237 000 ml @ 75 mls/hr IV .[id number] [facility] Rx#:[id number] Output: Output, Urine Amount 0 / 0 250 / 250 0 / 250 Other: Number of Voids 0 0 Number of Unmeasured Voids 1 1 1 Weight 202 lb 5 oz 206 lb 3 oz Patient Weight 05/31/23 11:59 Weight 206 lb 3 oz Laboratory Results - last 24 hr 05/30/23 08:05: WBC 6.9, RBC 4.33, Hgb 12.1 L, Hct 36.9 L, MCV 85.2, MCH 28.0, MCHC 32.9, RDW 14.6, Plt Count 207, MPV 9.2, Neut % (Auto) 70.9, Lymph % (Auto) 22.5, [place] % (Auto) 4.4, Eos % (Auto) 1.6, Baso % (Auto) 0.7, Neut # (Auto) 4.9, Lymph # (Auto) 1.6, [place] # (Auto) 0.3, Eos # (Auto) 0.1, Baso # (Auto) 0.1, Sodium 140, Potassium 5.4 H, Chloride 104, Carbon Dioxide 30, Anion Gap 11.4, BUN 31 H, Creatinine 1.40 H, Estimated Creat Clear 53, Estimated GFR 37 L, Est GFR ( Amer) 45 L, Glucose 148 H, Calcium 10.2 05/30/23 10:59: Activated Clotting Time 285 H* 05/31/23 06:10: POC Glucose 77 05/31/23 06:20: WBC 5.7, RBC 3.78 L, Hgb 10.3 L D, Hct 31.4 L, MCV 83.0, MCH 27.2, MCHC 32.8, RDW 14.8, Plt Count 193, MPV 8.9, Neut % (Auto) 66.2, Lymph % (Auto) 27.2, [place] % (Auto) 5.1, Eos % (Auto) 1.3, Baso % (Auto) 0.3, Neut # (Auto) 3.8, Lymph # (Auto) 1.6, [place] # (Auto) 0.3, Eos # (Auto) 0.1, Baso # (Auto) 0.0, Sodium 141, Potassium 4.0 D, Chloride 108 H, Carbon Dioxide 30, Anion Gap 7.0, BUN 25 H, Creatinine 1.20 H, Estimated Creat Clear 28, Estimated GFR 44 L, Est GFR ( Amer) 53 L, Glucose 70 L D, Calcium 9.0 I & O for Labs for Last 24 Hours: Intake & Output 05/28/23 05/29/23 05/30/23 05/31/23 11:59 11:59 11:59 11:59 Intake Total 2285 / 2285 Output Total 250 / 250 Balance 2034 / 2034 Weight 205 lb 206 lb 3 oz Constitutional: Present no acute distress Comment:: Sitting on the bedside eating breakfast and enjoying. Appears most comfortable Respiratory: Present CTA bilaterally (Anteriorly and posteriorly) Cardiac: Present Reg Rate and Rhythm GI: Present soft and normal bowel sounds; Absent distention Extremities: Present normal inspection and full ROM; Absent tenderness, edema or calf tenderness Neuro: Present alert and oriented x 3 Assessment and Plan *Assessment and plan (1) Malignant essential hypertension: Status: Chronic Category: Medical Code(s): I10 - Essential (primary) hypertension (2) HLD (hyperlipidemia): Status: Chronic Qualifiers: Hyperlipidemia type: mixed hyperlipidemia Qualified Code(s): E78.2 - Mixed hyperlipidemia Category: Medical Code(s): E78.5 - Hyperlipidemia, unspecified (3) Obesity (BMI 30-39.9): Status: Acute Category: Medical Code(s): E66.9 - Obesity, unspecified (4) History of coronary artery stent placement: Problem Comment: MAY 2018. Status: Chronic Category: Surgical Code(s): Z95.5 - Presence of coronary angioplasty implant and graft (5) Edema of lower extremity: Status: Acute Category: Medical Code(s): R60.0 - Localized edema (6) SOB (shortness of breath) on exertion: Status: Acute Category: Medical Code(s): R06.02 - Shortness of breath (7) DM2 (diabetes mellitus, type 2): Status: Chronic Qualifiers: Diabetes mellitus complication status: without complication Diabetes mellitus fdc insulin use: without ocean transportation intermediary use Qualified Code(s): E11.9 - Type 2 diabetes mellitus without complications Category: Medical Code(s): E11.9 - Type 2 diabetes mellitus without complications (8) Aortic stenosis: Status: Acute Qualifiers: Cardiac valve disease etiology: etiology unspecified Qualified Code(s): I35.0 - Nonrheumatic aortic (valve) stenosis Category: Medical Code(s): I35.0 - Nonrheumatic aortic (valve) stenosis (9) PAF (paroxysmal atrial fibrillation): Status: Acute Category: Medical Code(s): I48.0 - Paroxysmal atrial fibrillation (10) Murmur, heart: Status: Chronic Category: Medical Code(s): R01.1 - Cardiac murmur, unspecified (11) CAD (coronary artery disease): Status: Chronic Qualifiers: Associated angina: without angina Coronary Disease-Associated Artery/Lesion type: [place] artery [place] vs. transplanted heart: [place] heart Qualified Code(s): I25.10 - Atherosclerotic heart disease of [place] coronary artery without angina pectoris Category: Medical Code(s): I25.10 - Atherosclerotic heart disease of [place] coronary artery without angina pectoris (12) Renal insufficiency: Status: Acute Category: Medical Code(s): N28.9 - Disorder of kidney and ureter, unspecified Plan Renal function has improved slightly. Cardiology to follow. Probably home today with close monitoring of renal function.
[2023-05-31] MEDS: hydroCHLOROthiazide 25MG TABLET 25 MG PO (08:57)
[2023-05-31] MEDS: DAPAGLIFLOZIN PROPANEDIOL 10 MG TABLET PO (08:57)
[2023-05-31] MEDS: IRBESARTAN 300MG TABLET 300 MG PO (08:57)
[2023-05-31] MEDS: METOPROLOL SUCCINATE XL 100MG TABLET 100 MG PO (08:57)
[2023-05-31] MEDS: SPIRONOLACTONE 25MG TABLET 25 MG PO (08:57)
[2023-05-31] MEDS: AMLODIPINE 10MG TABLET 10 MG PO (08:57)
[2023-05-31] MEDS: GABAPENTIN 600MG TABLET 600 MG PO (08:58)
[2023-05-31] MEDS: INSULIN GLARGINE 100 UNITS/ML 10ML VIAL 20 UNIT SQ (09:03)
[2023-05-31] MEDS: CLOPIDOGREL 75MG TAB 75 MG PO (09:03)
[2023-05-31] MEDS: ASPIRIN EC 81MG TABLET 81 MG PO (09:03)
[2023-05-31 11:53] VITALS: BP 140/65; PULSE 75; RESP 18; TEMP 36.9; O2SAT 94
[2023-05-31 12:00] VITALS: PULSE 77
[2023-05-31 12:19] LABS: POC Glucose,Bedside 175 (70-110)
--- NOTE | 2023-05-31 14:12 | EXP.CARD.CON ---
History of Present Illness History of Present Illness Consult date: 05/31/23 Requesting physician: Thad Ann Chief complaint: Post-cath monitoring History of present illness: 72-year-old white female established patient of our office with history of atrial fibrillation and coronary artery disease. Recently had outpatient stress testing which showed 3 times daily 1.2. She had a left heart cath yesterday and had stents to her left main and LAD. She was kept overnight for observation. Her creatinine was 1.4 yesterday, 1.2 today. She reports feeling great today. Blood pressure stable, no chest pain, feels ready for discharge home. [facility] Disclaimer: The information contained in this section may have been updated after the patient was seen, as this information can be updated by other users. Medical History Abnormal findings on diagnostic imaging of heart and coronary circulation Allergies Angina pectoris Aortic stenosis CAD (coronary artery disease) DM2 (diabetes mellitus, type 2) GERD (gastroesophageal reflux disease) HHD (hypertensive heart disease) History of anemia History of COVID-19 History of left heart catheterization Hypertension Murmur, heart PAF (paroxysmal atrial fibrillation) SOB (shortness of breath) on exertion Surgical History History of colonoscopy History of coronary artery stent placement Family History Other Diabetes Family history of heart disease Family history of hypertension Social History Smoking Status: Former smoker alcohol intake: never substance use type: denies use current occupational status: retired Travel in the last 8 weeks: None household members: spouse housing: house Review of Systems Constitutional Constitutional: Denies frequent falls and Denies headache(s) Eyes Eyes: Denies loss of vision ENT Ears, Nose, Mouth, and Throat: Denies dizziness and Denies headache(s) *Cardiovascular Cardiovascular: Denies chest pain and Denies dyspnea *Respiratory Respiratory: Denies cough and Denies dyspnea *Gastrointestinal Gastrointestinal: Denies change in stool character, Denies nausea and Denies vomiting *Musculoskeletal Musculoskeletal: Denies muscle weakness Integumentary/Breasts Skin/Breast: Denies changing lesions *Neurologic Neurologic: Denies abnormal speech, Denies confusion, Denies dizziness, Denies frequent falls, Denies headache(s) and Denies loss of vision Psychiatric Psychiatric: Denies confusion Exam Data for Last 24 hours Vital signs and Labs for Last 24 Hours: Temp Pulse Resp BP Pulse Ox O2 Del Method O2 Flow Rate 98.4 F 75 18 140/65 94 L Nasal Cannula 3 05/31/23 11:53 05/31/23 11:53 05/31/23 11:53 05/31/23 11:53 05/31/23 11:53 05/31/23 11:53 05/30/23 11:30 Laboratory Results - last 24 hr 05/31/23 06:10: POC Glucose 77 05/31/23 06:20: WBC 5.7, RBC 3.78 L, Hgb 10.3 L D, Hct 31.4 L, MCV 83.0, MCH 27.2, MCHC 32.8, RDW 14.8, Plt Count 193, MPV 8.9, Neut % (Auto) 66.2, Lymph % (Auto) 27.2, [place] % (Auto) 5.1, Eos % (Auto) 1.3, Baso % (Auto) 0.3, Neut # (Auto) 3.8, Lymph # (Auto) 1.6, [place] # (Auto) 0.3, Eos # (Auto) 0.1, Baso # (Auto) 0.0, Sodium 141, Potassium 4.0 D, Chloride 108 H, Carbon Dioxide 30, Anion Gap 7.0, BUN 25 H, Creatinine 1.20 H, Estimated Creat Clear 28, Estimated GFR 44 L, Est GFR ( Amer) 53 L, Glucose 70 L D, Calcium 9.0 05/31/23 12:11: POC Glucose 175 H I & O for Last 24 hours: Intake & Output 05/28/23 05/29/23 05/30/23 05/31/23 23:59 23:59 23:59 23:59 Intake Total 1017 / 1017 1268 / 1268 Output Total 250 / 250 0 / 0 Balance 767 / 767 1268 / 1268 Weight 202 lb 5 oz 206 lb 3 oz Constitutional Constitutional: no acute distress and cooperative *Routine HEENT Exam Eye: Present PERRL *Routine Respiratory Exam Respiratory: Present CTA bilaterally; Absent accessory muscle use, wheezes or crackles *Routine Cardiovascular Exam Cardiovascular: Present RRR, Normal S1 and Normal S2; Absent murmur, gallop or rubs Comments: Cath site right wrist normal on inspection and palpation *Routine Abdominal Exam Abdominal: Present soft; Absent tenderness *Routine Extremities Exam Extremities: Present pulses intact; Absent cyanosis or edema *Routine Skin Exam Skin: Present intact; Absent erythema or wounds *Routine Neurological Exam Neurological: Present alert and oriented X3 Routine Psychiatric Exam Psychiatric: Present cooperative Meds Home Medications and Allergies Home Medications Medication Instructions Recorded Confirmed Type fenofibric acid (choline) 135 mg 135 mg PO DAILY Cholesterol 01/13/18 05/30/23 History capsule,delayed release (Trilipix) ferrous sulfate 325 mg (65 mg 325 mg PO DAILY Supplement 01/13/18 05/30/23 History iron) tablet multivitamin 1 each PO DAILY Supplement 01/13/18 05/30/23 History sitagliptin phosphate 100 mg 100 mg PO DAILY Diabetes 01/13/18 05/30/23 History tablet (Januvia) glimepiride 4 mg tablet 4 mg PO DAILY Diabetes 05/08/19 05/30/23 History cyanocobalamin (vitamin B-12) 1,000 mcg PO DAILY Supplement 08/08/19 05/30/23 History 1,000 mcg capsule famotidine 40 mg tablet 40 mg PO HS Acid Reflux 05/07/20 05/30/23 History gabapentin 600 mg tablet 600 mg PO BID Pain 08/07/21 05/30/23 History ascorbic acid (vitamin C) 500 mg 500 mg PO DAILY . 02/05/22 05/30/23 History capsule cholecalciferol (vitamin D3) 25 25 mcg PO DAILY Supplement 02/05/22 05/30/23 History mcg (1,000 unit) capsule zinc acetate 25 mg (zinc) capsule 25 mg PO DAILY Supplement 02/05/22 05/30/23 History (Galzin) rosuvastatin 20 mg tablet 20 mg PO DAILY Cholesterol #90 tabs 08/24/22 05/30/23 Rx spironolactone 25 mg tablet 25 mg PO DAILY Fluid 01/10/23 05/30/23 History dapagliflozin propanediol 10 mg 10 mg PO DAILY 02/03/23 05/30/23 History tablet (Farxiga) amlodipine 10 mg tablet (Norvasc) 10 mg PO BID High Blood Pressure 05/30/23 05/30/23 History aspirin 81 mg chewable tablet 81 mg PO DAILY 30 days #30 tabs 05/30/23 Rx ([place] Chewable Low Dose Aspirin) clopidogrel 75 mg tablet 75 mg PO DAILY Platelet Inhibitor 05/30/23 05/30/23 History insulin glargine 100 unit/mL (3 20 unit SQ DAILY Diabetes 05/30/23 05/30/23 History mL) subcutaneous pen (Lantus Solostar U-100 Insulin) metoprolol succinate 100 mg 100 mg PO DAILY High Blood Pressure 05/30/23 05/30/23 History tablet,extended release 24 hr (Toprol XL) rivaroxaban 20 mg tablet (Xarelto) 20 mg PO QPMWITHMEAL Blood 05/30/23 05/30/23 History Thinner/Afib valsartan 320 1 tab PO DAILY High Blood Pressure 05/30/23 05/30/23 History mg-hydrochlorothiazide 25 mg tablet New Prescriptions to Start Prescriptions: aspirin [[place] Chewable Aspirin] Laron Vlaerio Allergies Allergy/AdvReac Type Severity Reaction Status Date / Time Sulfa (Sulfonamide Allergy Verified 05/19/23 13:16 Antibiotics) Assessment and Plan *Assessment and plan (1) Renal insufficiency: Status: Acute Category: Medical Code(s): N28.9 - Disorder of kidney and ureter, unspecified (2) CAD (coronary artery disease): Status: Chronic Qualifiers: Coronary Disease-Associated Artery/Lesion type: [place] artery [place] vs. transplanted heart: [place] heart Associated angina: without angina Qualified Code(s): I25.10 - Atherosclerotic heart disease of [place] coronary artery without angina pectoris Category: Medical Code(s): I25.10 - Atherosclerotic heart disease of [place] coronary artery without angina pectoris (3) PAF (paroxysmal atrial fibrillation): Status: Acute Category: Medical Code(s): I48.0 - Paroxysmal atrial fibrillation Plan Multivessel CAD -Known diagnosis, abnormal outpatient testing, stent to left main and LAD successfully yesterday -She is chest pain-free -Creatinine 1.4, 1.2 -DC home with triple therapy for 1 month (i.e. aspirin, Plavix, Xarelto) afterwards she can DC aspirin Chronic renal insufficiency -Creatinine 1.4 yesterday, 1.2 today -Stable, continue outpatient monitoring Atrial fibrillation -Well-controlled here -Resume home dose Xarelto and beta-anam CV stable for discharge home.
--- NOTE | 2023-06-01 14:14 | CARE MANAGER ---
Contacted patient related to hospital discharge. She is aware of appointments and new meds. Denies any questions or concerns. ANGELO Gabriel
--- NOTE | 2023-06-11 20:53 | EXP.DC.SUM ---
General Admission date:: 05/30/23 Discharge date: 05/31/23 HPI HPI HPI: Ms. Sousa is a 72-year-old female with a history of obesity, hypertension, type 2 diabetes mellitus, hyperlipidemia, GERD, iron deficiency anemia,Lumbar radicular pain who was admitted to the medical floor after cardiac catheterization. The procedure was complex and it was felt she needed to have an overnight stay also for renal insufficiency to receive IV fluids. Patient describes shortness of breath over the last few months and has experienced some left anterior chest burning. She has been followed by cardiology. She did have a positive stress test and thus cardiac catheterization was scheduled. Cardiac cath results are as follows: ANGIOGRAPHIC RESULTS The left main artery Has an ostial calcified 60 to 70% stenosis by angiography with distal greater than 50% stenosis by IVUS criteria and plaque burden The left anterior descending artery Has high-grade greater than 70% plaque burden in the ostial proximal LAD with an angiographic stenosis of 30 to 40%. The circumflex artery Large and codominant and has proximal 10% stenosis with mid vessel 30 to 40% calcified stenoses which extend into a large first obtuse marginal artery a medium sized second obtuse marginal artery The right coronary artery Is codominant and has proximal 40% calcified stenosis with a mid vessel calcified 60 to 70% stenosis and a distal calcified 60% stenosis The MOLINA ventriculogram reveals Normal 60% The left ventricular end-diastolic pressure 20 mmHg IMPRESSION Severe left main disease as described above which extended into the distal left main and into the proximal LAD by IVUS with successful percutaneous revascularization of the ostial proximal mid distal left main artery with additional stenting into the ostial proximal LAD reducing the stenosis to less than 10% by angiography Persistent moderate disease throughout the circumflex artery Persistent moderate to severe calcified diffuse disease throughout the codominant right coronary Normal ejection fraction Evaded LVEDP At the time of this exam patient has just returned from the restroom and ambulated without difficulty. She is sitting on the side of the bed and appears quite comfortable. She denies chest pain and shortness of breath. Hospital Course Hospital Course Hospital Course: The patient was admitted and cardiology was consulted. She was started on IV fluids. Some of her home medications were added as well as sliding scale insulin. She did begin feeling better and was able to ambulate and eat. Her renal function improved slightly. Her blood pressure was stable and she had no history of chest pain. She was stable to be discharged home with triple therapy including aspirin, Plavix, and Xarelto. She will follow-up with cardiology. Exam Data for Last 24 hours Vital signs and Labs for Last 24 Hours: Temp Pulse Resp BP Pulse Ox O2 Del Method O2 Flow Rate 98.4 F 77 18 140/65 94 L Nasal Cannula 3 05/31/23 11:53 05/31/23 12:00 05/31/23 11:53 05/31/23 11:53 05/31/23 11:53 05/31/23 11:53 05/30/23 11:30 Narrative: Constitutional Constitutional: no acute distress and obese Comments: Sitting on the bedside after ambulating to the bathroom. She appears comfortable. *Routine HEENT Exam Head: Present normocephalic and atraumatic Eye: Present PERRL; Absent conjunctival icterus, scleral injection, conjunctivae pink or periorbital ecchymosis ENT: Present mucous membranes moist and oropharynx clear *Routine Neck Exam Neck: Present supple; Absent carotid bruit, lymphadenopathy, thyromegaly or tenderness *Routine Respiratory Exam Respiratory: Present CTA bilaterally (Anteriorly and posteriorly) *Routine Cardiovascular Exam Cardiovascular: Present RRR and murmur *Routine Abdominal Exam Abdominal: Present normoactive bowel sounds and obese; Absent tenderness or distended *Routine Rectal Exam Rectal:: deferred *Routine Genitalia Exam Genitalia:: deferred *Routine Extremities Exam Extremities: Present edema (Trace bilateral lower extremities) *Routine Neurological Exam Neurological: Present alert and oriented X3 DS: Diagnosis Discharge Diagnosis (1) Renal insufficiency: Status: Acute Code(s): N28.9 - Disorder of kidney and ureter, unspecified (2) CAD (coronary artery disease): Status: Chronic Code(s): I25.10 - Atherosclerotic heart disease of [place] coronary artery without angina pectoris Qualifiers: Coronary Disease-Associated Artery/Lesion type: [place] artery [place] vs. transplanted heart: [place] heart Associated angina: without angina Qualified Code(s): I25.10 - Atherosclerotic heart disease of [place] coronary artery without angina pectoris (3) PAF (paroxysmal atrial fibrillation): Status: Inactive Code(s): I48.0 - Paroxysmal atrial fibrillation Meds Home Medications and Allergies Home Medications Medication Instructions Recorded Confirmed Type fenofibric acid (choline) 135 mg 135 mg PO DAILY Cholesterol 01/13/18 06/06/23 History capsule,delayed release (Trilipix) ferrous sulfate 325 mg (65 mg 325 mg PO DAILY Supplement 01/13/18 06/06/23 History iron) tablet multivitamin 1 each PO DAILY Supplement 01/13/18 06/06/23 History sitagliptin phosphate 100 mg 100 mg PO DAILY Diabetes 01/13/18 06/06/23 History tablet (Januvia) glimepiride 4 mg tablet 4 mg PO DAILY Diabetes 05/08/19 06/06/23 History cyanocobalamin (vitamin B-12) 1,000 mcg PO DAILY Supplement 08/08/19 06/06/23 History 1,000 mcg capsule famotidine 40 mg tablet 40 mg PO HS Acid Reflux 05/07/20 06/06/23 History gabapentin 600 mg tablet 600 mg PO BID Pain 08/07/21 06/06/23 History ascorbic acid (vitamin C) 500 mg 500 mg PO DAILY . 02/05/22 06/06/23 History capsule cholecalciferol (vitamin D3) 25 25 mcg PO DAILY Supplement 02/05/22 06/06/23 History mcg (1,000 unit) capsule zinc acetate 25 mg (zinc) capsule 25 mg PO DAILY Supplement 02/05/22 06/06/23 History (Galzin) rosuvastatin 20 mg tablet 20 mg PO DAILY Cholesterol #90 tabs 08/24/22 06/06/23 Rx spironolactone 25 mg tablet 25 mg PO DAILY Fluid 01/10/23 06/06/23 History dapagliflozin propanediol 10 mg 10 mg PO DAILY 02/03/23 06/06/23 History tablet (Farxiga) amlodipine 10 mg tablet (Norvasc) 10 mg PO BID High Blood Pressure 05/30/23 06/06/23 History aspirin 81 mg chewable tablet 81 mg PO DAILY 30 days #30 tabs 05/30/23 06/06/23 Rx ([place] Chewable Low Dose Aspirin) clopidogrel 75 mg tablet 75 mg PO DAILY Platelet Inhibitor 05/30/23 06/06/23 History insulin glargine 100 unit/mL (3 20 unit SQ DAILY Diabetes 05/30/23 06/06/23 History mL) subcutaneous pen (Lantus Solostar U-100 Insulin) rivaroxaban 20 mg tablet (Xarelto) 20 mg PO QPMWITHMEAL Blood 05/30/23 06/06/23 History Thinner/Afib valsartan 320 1 tab PO DAILY High Blood Pressure 05/30/23 06/06/23 History mg-hydrochlorothiazide 25 mg tablet metoprolol succinate 100 mg 150 mg PO DAILY High Blood 06/07/23 Rx tablet,extended release 24 hr Pressure #45 tabs (Toprol XL) New Prescriptions to Start Prescriptions: aspirin [[place] Chewable Aspirin] Laron Valerio Allergies Allergy/AdvReac Type Severity Reaction Status Date / Time Sulfa (Sulfonamide Allergy Verified 06/06/23 14:02 Antibiotics) Discharge Plan Disposition Patient Disposition: Home, Self-Care Condition: Fair Follow up Plan Follow up with: Ruel Blakely MD [Primary Care Provider] - 06/07/23 10:00 am Laron Valerio MD [Staff Physician] - 06/06/23 1:45 pm Prescriptions/Medication Reconciliation: New aspirin [[place] Chewable Aspirin] 81 mg Tablet,Chewable 81 mg PO DAILY 30 Days Qty: 30 6RF Continued gabapentin 600 mg tablet 600 mg PO BID Patient Comments: TAKE 1 TABLET 2 TIMES EACH DAY Galzin 25 mg (zinc) capsule 25 mg PO DAILY cholecalciferol (vitamin D3) 25 mcg (1,000 unit) capsule 25 mcg PO DAILY ascorbic acid (vitamin C) 500 mg capsule 500 mg PO DAILY Farxiga 10 mg tablet 10 mg PO DAILY Patient Comments: TAKE 1 TABLET 1 TIME EACH DAY cyanocobalamin (vitamin B-12) 1,000 mcg capsule 1,000 mcg PO DAILY famotidine 40 mg tablet 40 mg PO HS Patient Comments: TAKE 1 TABLET 1 TIME EACH DAY AT BEDTIME rosuvastatin 20 mg tablet 20 mg PO DAILY Qty: 90 3RF multivitamin 1 EACH tablet 1 each PO DAILY ferrous sulfate 325 MG tablet 325 mg PO DAILY Januvia 100 MG tablet 100 mg PO DAILY fenofibric acid (choline) [Trilipix] 135 MG capsule,delayed release(DR/EC) 135 mg PO DAILY glimepiride 4 mg tablet 4 mg PO DAILY spironolactone 25 mg tablet 25 mg PO DAILY valsartan-hydrochlorothiazide 320-25 mg tablet 1 tab PO DAILY Patient Comments: TAKE 1 TABLET 1 TIME EACH DAY insulin glargine [Lantus Solostar U-100 Insulin] 100 unit/mL (3 mL) insulin pen 20 unit SQ DAILY Patient Comments: INJECT 20 UNITS UNDER THE SKIN 1 TIME EACH DAY AND INCREASE DOSE DIRECTED clopidogrel 75 mg tablet 75 mg PO DAILY amlodipine [Norvasc] 10 mg tablet 10 mg PO BID Xarelto 20 mg tablet 20 mg PO QPMWITHMEAL No Action metoprolol succinate [Toprol XL] 100 mg tablet extended release 24 hr 150 mg PO DAILY Qty: 45 6RF Problem Reconciliation Problems Reviewed?: Yes Patient Discharge Instructions ACTIVITY: Limited activity DIET: diabetic diet Patient Instructions: DI for Cardiac Catheterization, DI for Coronary Stenting, DI for Surgical Site Infection, DI for Moderate Sedation, DI for Post-Surgical Bleeding Providers Primary Care Provider: Ruel Blakely Admit Provider: Laron Valerio Attending Provider: Thad Ann
== END 2023-05-31 17:05 | disposition home or self-care (01) ==
LOC: 2ND 11:25
PROVIDERS: Admitting Provider Internal Medicine; PCP Family Medicine; Visit Provider Family Medicine
DX: I25.10 Atherosclerotic heart disease of native coronary artery without angina pectoris (principal); R07.89 Other chest pain; I10 Essential (primary) hypertension; E78.2 Mixed hyperlipidemia; E66.9 Obesity, unspecified; Z95.5 Presence of coronary angioplasty implant and graft; R60.0 Localized edema; R06.02 Shortness of breath; E11.9 Type 2 diabetes mellitus without complications; I35.0 Nonrheumatic aortic (valve) stenosis; I48.0 Paroxysmal atrial fibrillation; R01.1 Cardiac murmur, unspecified; N28.9 Disorder of kidney and ureter, unspecified; Z68.41 Body mass index [BMI] 40.0-44.9, adult
CPT/HCPCS: 36415; 80048; 82962; 85025; 85347; 92928; 92978; 92979; 93458; 99152; 99153; C1725; C1769; C1876; C9600; G0378; J1644; Q9967

== ENCOUNTER 2023-06-06 13:07 | Outpatient (CLI) | payer MEDICARE, SELFPAY ==
[2023-06-06 13:34] LABS: Basophils % 0.3 % (0.1-2.0); Eosinophils # 0.1 K/mm3 (0.0-0.4); Eosinophils % 1.9 % (0.1-12.0); Hematocrit 35.4 % (37.0-47.0); Hemoglobin 11.2 g/dL (12.2-16.2); Lymphocytes # 1.6 K/mm3 (0.7-4.5); Lymphocytes % 26.6 % (10-50); Mean Corpuscular HGB Conc 31.6 g/dL (31.8-35.4); Mean Corpuscular Hemoglobin 27.9 pg (27.0-31.2); Mean Corpuscular Volume 88.2 fl (81-99); Mean Platelet Volume 9.3 fl (7.4-10.4); Monocytes # 0.3 K/mm3 (0.1-1.0); Monocytes % 4.5 % (1.7-9.3); Neutrophils % 66.7 % (37.0-80.0); Platelet Count 202 K/mm3 (142-424); Red Blood Count 4.01 M/mm3 (4.20-5.40); Red Cell Distribution Width 14.9 % (11.5-17.5)
[2023-06-06 15:42] LABS: Chloride 109 mmol/L (98-107); Potassium 4.9 mmoL/L (3.5-5.1); Sodium 141 mmol/L (136-145)
[2023-06-06 15:45] LABS: Anion Gap 7.9 mEq/L (5-15); Blood Urea Nitrogen 38 mg/dl (7-17); Carbon Dioxide 29 mmol/L (22.0-30.0); Estimated Glomerular Filt Rate 37 ml/min (>60); GFR (African American) 45 ML/MIN (>60); Glucose 124 mg/dl (74-100)
== END 2023-06-06 23:59 ==
PROVIDERS: PCP Family Medicine; Visit Provider Internal Medicine
DX: I25.10 Atherosclerotic heart disease of native coronary artery without angina pectoris (principal)
CPT/HCPCS: 36415; 80048; 85025

== ENCOUNTER 2023-08-16 14:29 | Outpatient (RCR) | payer MEDICARE, SELFPAY | END 2023-10-05 10:00 | disposition home or self-care (01) | LOC: PT 14:29 | PROVIDERS: Visit Provider Nurse Practitioner | DX: I25.10 Atherosclerotic heart disease of native coronary artery without angina pectoris (principal) | CPT/HCPCS: 93798 ==

== ENCOUNTER 2023-11-17 10:26 | Outpatient (CLI) | payer MEDICARE, SELFPAY ==
--- OUTSIDE RECORDS SUMMARY | 2023-11-17 10:30 | XMS_ITS ---
[facility] [address] [facility] [address] [facility] [address] [place] [id number] Care Team Providers Care Garment Sorter Name Role Phone Parrish Blakely Primary Care Provider [phone] REASON FOR VISIT Test results Encounters Encounter Location Date Provider Diagnosis [facility] [address] [facility] [address] [place] [id number] 11/06/2023 Parrish Blakely PLAN OF TREATMENT Next Appt Details Provider Name:Parrish Moses, 05/03/2024 09:30:00 AM, [address] [facility], [address], [place], [phone],
--- OUTSIDE RECORDS SUMMARY | 2023-11-17 10:30 | XMS_ITS ---
Author Organization [facility] Address [address] [facility] [address] [facility] [place] [address] [place] [id number] Care Team Providers Care [place] Gold Attendant Name Role Phone Parrish Blakely Primary Care Provider [phone] REASON FOR VISIT refill MEDICATIONS Medication SIG (Take, Route, Frequency, Duration) Notes Start Date End Date Status Lantus SoloStar 100 UNIT/ML 44 units Subcutaneous once daily 05/03/2023 Active Encounters Encounter Location Date Provider Diagnosis [facility] [address] [facility] [address] [facility] [place] [address] [place] [id number] 11/09/2023 Parrish Blakely Type 2 diabetes mellitus without complication E11.9 ASSESSMENTS Encounter Date Diagnosis Assessment Notes Treatment Notes Treatment Clinical Notes 11/09/2023 Type 2 diabetes mellitus without complication (ICD-10 - E11.9) PLAN OF TREATMENT Medication Medication Name Sig Start Date Stop Date Notes Lantus SoloStar 100 UNIT/ML 44 units Sub cutaneous once daily 05/03/2023 Next Appt Details Provider Name:Parrish Moses, 05/03/2024 09:30:00 AM, [address] [facility] [place], [address], [place], [phone],
--- OUTSIDE RECORDS SUMMARY | 2023-11-17 10:30 | XMS_ITS ---
Author Organization [facility] Address [address] [facility] [place] [address] [facility] [address] [place] [phone] Care Team Providers Care Director Of Blood Name Role Phone Parrish Blakely Primary Care Provider REASON FOR VISIT Controlled Rx MEDICATIONS Medication SIG (Take, Route, Fr equency, Duration) Notes Start Date End Date Status Gabapentin 600 MG 1 cap(s) orally twice a day 10/2023 Active Encounters Encounter Location Date Provider Diagnosis [facility] [address] [facility] [place] [address] [facility] [address] [place] [id number] 11/16/2023 Parrish Blakely Lumbar radicular syed n M54.16 ASSESSMENTS Encounter Date Diagnosis Assessment Notes Treatment Notes Treatment Clinical Notes 11/16/2023 Lumbar radicular pain (ICD-10 - M54.16) PLAN OF TREATMENT Medication Medication Name Sig Start Date Stop Date Notes Gabapentin 600 MG 1 cap(s) orally twice a day 11/16/2023 Next Appt Details Provider Name:Parrish Moses, 05/03/2024 09:30:00 AM, [address] [facility] [place] [address] [facility], [address], [place], [phone],
--- OUTSIDE RECORDS SUMMARY | 2023-11-17 10:31 | XMS_ITS | Patient Health Record ---
Author Organization [facility] Address [address] [facility] [address] [place] [id number] Care Team Providers Care Territory Manager Name Role Phone Parrish Blakely Primary Care Provider [phone] [place] Unavailable [phone] ALLERGIES Allergen (clinical drug ingredient) Drug/Non Drug Allergy documented on EMR Reaction Allergy Type Onset Date Status empagliflozin Jardiance yeast infection Drug Allergy Active angiotensin-converti ng enzyme inhibitor (FN) TIFFANY Inhibitors cough Drug Allergy Active Substance with sulfonamide structure and antibacterial mechanism of action (substance) Sulfa Antibiotics itching Drug Allergy Active RESULTS Component Value Reference Range Notes CBC Venipuncture (in house) Reviewed date:05/03/2023 08:36:18 AM Interpretation: Performing Lab: Notes/Report: wbc 5.8 3.5 - 10 lymph 23.9 15 - 50 mid 5.9 2 - 15 gran 70.2 35 - 80 rbc 3.91 3.5 - 5.5 hgb 10.8 11.5 - 16.5 hct 32.3 35 - 55 mcv 82.6 75 - 100 mch 27.7 25 - 35 mchc 33.5 31 - 38 platlet 201 100 - 400 Glycohemoglobin A1c (in hous e) Reviewed date:05/03/2023 08:36:18 AM Interpretation:9.9% Performing Lab: Notes/Report: 9.9% glycohemoglobin 9.9% 5 - 6.5 % P-Comprehensive Metabolic Pa suresh (CMP) Reviewed date:05/03/2023 08:36:17 AM Interpretation: Performing Lab: Notes/Report: Test performed by [facility] [address] [place] [address] , [address], [place] [address] Khadar Mckay MD, [employer] Laminating Machine Operator CLIA: [id number] Sodium 143 135-145 mEq/L Potassium 5.0 3.5-5.3 mEq/L Chloride 104 97-108 mEq/L CO2 26 22-32 mEq/L Glucose 216 65-99 mg/dL BUN 27 8-23 mg/dL Creatinine 1.29 0.50-1.00 mg/dL Calcium 10.1 8.6-10.4 mg/dL eGFR by Creatinine 44 >59 mL/min/1.73m2 Protein 7.1 6.0-8.3 g/dL Albumin 4.6 3.5-5.3 g/dL Alkaline Phosphatase 49 35-121 IU/L ALT (SGPT) 17 <5-47 IU/L AST (SGOT) 19 <5-40 IU/L Bilirubin, Total <0.2 <0.2-1.2 mg/dL A/G Ratio 1.8 1.1-2.5 mg/dL P-Iron Reviewed date:05/03/2023 08:36:17 AM Interpretation: Performing Lab: Notes/Report: Test performed by [facility] [address] [place] [address] , [place] [address] Khadar Mckay MD, [employer] Laminating Machine Operator CLIA: [id number] Iron 68 37-145 ug/dL P-Lipid Panel Reviewed date:05/03/2023 08:36:17 AM Interpretation: Performing Lab: Notes/Report: Test performed by [facility] [address] [place] [address] , [place] [address] Khadar Mckay MD, [employer] Laminating Machine Operator CLIA: [id number] Cholesterol 156 <200 mg/dL Triglycerides 316 <150 mg/dL HDL Cholesterol 46 >39 mg/dL Cholesterol / HDL Ratio 3.39 0.00-4.44 Ratio Non-HDL Cholesterol 110 <130 mg/dL LDL Cholesterol (Calculation) 47 <130 mg/dL LDL Cholesterol Levels* Less than 100 mg/dL Optimal 100 to 129 mg/dL Near Optimal/ Above Optimal 130 to 159 mg/dL Borderline High 160 to 189 mg/dL High 190 mg/dL and above Very High * Categories as recommended by the 2004 ATPIII guidelines LDL/HDL Ratio 1.0 <3.3 Ratio LDL Cholesterol Patient History Test Date: 04/28/2023 LDL Results: 47 Units: mg/dL % Change: - P-Microalbumin/Creatinine, R andom Urine Sample Reviewed date:05/03/2023 08:36:17 AM Interpretation: Performing Lab: Notes/Report: Test performed by [facility], [address] , [address] , [place] [address] Khadar Mckay MD, [employer] Laminating Machine Operator CLIA: [id number] Albumin/Creatinine Ratio, Urine 15 0-30 ug/mg Microalbumin, Urine, Random 1.0 Creatinine, Urine 68.8 Mammogram Reviewed date:05/13/2023 03:02:45 PM Interpretation:Negative, annual f/u Performing Lab: Notes/Report: Negative, annual f/u result Negative, annual f/u Glycohemoglobin A1c (in hous e) Reviewed date:11/06/2023 10:45:47 PM Interpretation:7.2% Performing Lab: Notes/Report: 7.2% glycohemoglobin 7.2% 5 - 6.5 % P-Comprehensive Metabolic Pa suresh (CMP) Reviewed date:11/06/2023 10:45:47 PM Interpretation:gluc 155, bun 29, Cr 1.41, gfr 39 Performing Lab: Notes/Report: Test performed by [facility] [address] [place] [address] [address]sha Tron[address]o C, [place] [address] Khadar Mckay MD, [employer] Laminating Machine Operator CLIA: [id number] Sodium 142 135-145 mmol/L Potassium 5.1 3.5-5.3 mmol/L Chloride 103 97-108 mmol/L CO2 27 22-32 mmol/L Glucose 155 65-99 mg/dL BUN 29 8-23 mg/dL Creatinine 1.41 0.50-1.00 mg/dL Calcium 9.9 8.6-10.4 mg/dL eGFR by Creatinine 39 >59 mL/min/1.73m2 Protein 6.8 6.0-8.3 g/dL Albumin 4.5 3.5-5.3 g/dL Alkaline Phosphatase 47 35-121 IU/L ALT (SGPT) 15 <5-47 IU/L AST (SGOT) 16 <5-40 IU/L Bilirubin, Total 0.3 <0.2-1.2 mg/dL A/G Ratio 2.0 1.1-2.5 mg/dL P-Lipid Panel Reviewed date:11/06/2023 10:45:47 PM Interpretation:trigs 280 Performing Lab: Notes/Report: Test performed by [facility] [address] [place] [address] [address] Tron[address]o C, [place] [address] Khadar Mckay MD, [employer] L[employer]ating Machine Operator CLIA: [id number] Cholesterol 149 <200 mg/dL Triglycerides 280 <150 mg/dL HDL Cholesterol 46 >39 mg/dL Cholesterol / HDL Ratio 3.24 0.00-4.44 Ratio Non-HDL Cholesterol 103 <130 mg/dL LDL Cholesterol (Calculation) 47 <130 mg/dL LDL Cholesterol Levels* Less than 100 mg/dL Optimal 100 to 129 mg/dL Near Optimal/ Above Optimal 130 to 159 mg/dL Borderline High 160 to 189 mg/dL High 190 mg/dL and above Very High * Categories as recommended by the 2004 ATPIII guidelines LDL/HDL Ratio 1.0 <3.3 Ratio LDL Cholesterol Patient History Test Date: 04/28/2023 LDL Results: 47 Units: mg/dL % Change: - ------- Test Date: 11/03/2023 LDL Results: 47 Units: mg/dL % Change: 0% Glycohemoglobin A1c (in hous e) Reviewed date:08/02/2023 09:28:17 AM Interpretation:6.6 Performing Lab: Notes/Report: 6.6 glycohemoglobin 6.6% 5 - 6.5 % MEDICATIONS Medication SIG (Take, Route, Frequency, Duration) Notes Start Date End Date Status Januvia 100 MG 1 tablet Orally Once a day for 90 days Active Metoprolol Succinate ER 100 MG 1 1/2 tab(s) Orally once a day at bedtime Active Amaryl 4 MG 1 tab(s) orally once a day Active Spironolactone 50 MG 1 tab(s) Orally onc e a day Active Farxiga 10 MG 1 tab(s) Orally once a day Active Meclizine HCl 12.5 MG 1 or 2 tab(s) oral ly 3 times a day as needed 10/16/2012 Active Xarelto 20 MG 1 tab(s) orally once a day (in the evening) Active Clopidogrel Bisulfate 75 MG 1 tab(s) orally once a day Active Fenofibric Acid 135 MG TAKE 1 CAPSULE BY MOUTH ONCE DAILY for 90 Active Famotidine 40 MG 1 tab(s) orally once a day (at bedtime) Active amLODIPine Besylate 10 MG 1 tab(s) orall y once a day Active Diflucan 150 MG 1 tablet Orally q72 hours x 2 doses 04/06/2023 Not-Taking Diovan HCT 320-25 MG 1 tab(s) orally onc e daily Active Lantus SoloStar 100 UNIT/ML 44 units Subcutaneous once daily 05/03/2023 Active Gabapentin 600 MG 1 cap(s) orally twic e a day 11/16/2023 Active Lopressor 100 MG 1 tab(s) orally daily Active Fish Oil 1000MG 3 TAB(S) P.O. ONCE A DAY Active Ferrous Sulfate 325 (65 Fe) MG 1 tab(s) orally once a day for 30 day(s) 10/11/2013 Active Zetia 10 MG 1 tab(s) orally once a day for 30 day(s) Active Rosuvastatin Calcium 20 MG 1 tab(s) orally once a day Active Diclofenac Sodium 1 % as directed applie d topically 4 times a day 04/29/2022 Active IMMUNIZATIONS Vaccine Route Administration Date Status Comme nts COVID 19 Moderna Unknown 05/08/2020 Administered COVID 19 Moderna Unknown 06/05/2020 Administered COVID 19 Moderna Unknown 01/01/2021 Administered Fluzone High Dose (65yr and older) IM Intramuscular 01/30/2020 Administered Fluzone High Dose (65yr and older) IM Intramuscular 01/19/2021 Administered Fluzone High Dose (65yr and older) IM Intramuscular 01/06/2022 Administered Fluzone High Dose (65yr and older) IM Intramuscular 12/22/2022 Administered PNEUMOVAX 23 VACCINE IM Intramuscular 04/22/2017 Administe red Prevnar (PCV13) IM Intramuscular 04/20/2016 Administered Prevnar (PCV20) IM Intramuscular 04/28/2023 Administered Tetanus Tdap-Adacel (over 7yrs) IM Intramuscular 04/21/2018 Administered xAdministration of injection IM Intramuscular 10/21/2015 Administered xFlu shot-36 months and older IM Intramuscular 03/06/2005 Administered xFlu shot-36 months and older IM Intramuscular 03/10/2007 Administered SOCIAL HISTORY Sex Assigned At : Social History Observation Description Sex Assigned At Unknown PROBLEMS Problem Type ICD Code Onset Dates Problem Status W/U Status Risk SNOMED Code Notes Problem Essential hypertension (I10) Active confirmed 76287207 Problem Abnormal mammogram (R92.8) Active confirmed Abnormal mammogram (881767688) Problem Seasonal allergies (J30.2) Active confirmed 806808120 Problem Hypoglycemia associated with diabetes (E11.649) Active confirmed 549040183 Problem Iron deficiency anemia (D50.9) Active confirmed 13435037 Problem Paroxysmal atrial fibrillation (I48.0) Active confirmed 706983818 Problem Generalized osteoarthritis (M15.9) Active confirmed 845474605 Problem 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) Active confirmed 96675676 Problem Gastroesophageal reflux disease without esophagitis (K21.9) Active confirmed 504191624 Problem JACQUELYN (obstructive sleep apnea) (G47.33) Active confirmed 28121624 Problem Dyslipidemia (E78.5) Active confirmed Dyslipidemia (361398995) Problem 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) Active confirmed Peripheral circulatory disorder associated with diabetes mellitus (064370523) Problem Thyromegaly (E01.0) Active confirmed 14 656986 VITAL SIGNS Heart Rate 53 /min 11/03/2023 Blood pressure diastolic 74 mm Hg 11/03/2023 Height 60 in 11/03/2023 Blood pressure systolic 138 mm Hg 11/03/2023 Weight 206.8 lbs 11/03/2023 BMI 40.38 kg/m2 11/03/2023 Encounters Encounter Location Date Provider Diagnosis [facility] [facility] [facility] [address] [facility] [address] [place] [id number] 12/22/2022 R Yaya Blakely Encounter for immunization Z23 [facility] [address] [facility] [address] [facility] [address] [place] [id number] 04/06/2023 R Yaya Blakely [facility] [facility] [address] [facility] [address] [place] [id number] 04/28/2023 R Yaya Blakely Adult general medica l examination Z00.00 ; Essential hypertension I10 ; Type 2 diabetes mellitus without complication E11.9 ; Mixed hyperlipidemia E78.2 ; Lumbar radicular pain M54.16 ; Gastroesophageal reflux disease without esophagitis K21.9 ; Iron deficiency anemia D50.9 ; Encounter for immunization Z23 ; Screening for breast cancer Z12.39 and BMI 39.0-39.9,adult Z68.39 [facility] [address] [facility] [address] [place] [id number] 05/03/2023 R Yaya Blakely Type 2 diabetes stas itus without complication E11.9 [facility] [address] [place] [id number] 06/07/2023 R Yaya Blakely Arteriosclerotic cardiovascular disease (ASCVD) I25.10 Jody [address] [facility] [address] [place] [id number] 08/02/2023 R Yaya Aaronfleet Type 2 diabetes stas itus without complication E11.9 [facility] [address] [place] [id number] 10/07/2023 Maritza Crowdy Yeast infection B37. 9 [facility] [address] [place] [id number] 11/03/2023 R Yaya Durant Type 2 diabetes stas itus with other circulatory complication E11.59 ; Diabetes mellitus with hyperglycemia E11.65 ; Paroxysmal atrial fibrillation I48.0 ; Dyslipidemia E78.5 and Essential hypertension I10 Jody [address] [facility] [address] [place] [id number] 11/06/2023 R Yaya [place] Jody [address] [place] [id number] 11/09/2023 R aYya [place]fleet Type 2 diabetes stas itus without complication E11.9 [facility] [address] [place] [id number] 11/16/2023 R Yaya Durant Lumbar radicular syed n M54.16 ASSESSMENTS Encounter Date Diagnosis Assessment Notes Treatment Notes Treatment Clinical Notes 12/22/2022 Encounter for immunization (ICD-10 - Z23) 04/28/2023 Essential hypertensi on (ICD-10 - I10) 04/28/2023 Adult general medica l examination (ICD-10 - Z00.00) Patient instructed to return to office Annually for Annual Wellness Visits to include annual screenings of Pain assessment, Functional Ability assessment, Cognitive Ability assessment, Fall Risk assessment, Depression screening and Bladder control screening. 05/03/2023 Type 2 diabetes mellitus without complication (ICD-10 - E11.9) 06/07/2023 Arteriosclerotic cardiovascular disease (ASCVD) (ICD-10 - I25.10) 08/02/2023 Type 2 diabetes mellitus without complication (ICD-10 - E11.9) 10/07/2023 Yeast infection (ICD -10 - B37.9) Will hold crestor for a few days. 11/03/2023 Diabetes mellitus wi th hyperglycemia (ICD-10 - E11.65) 11/03/2023 Type 2 diabetes mellitus with other circulatory complication (ICD-10 - E11.59) 11/09/2023 Type 2 diabetes mellitus without complication (ICD-10 - E11.9) 11/16/2023 Lumbar radicular syed n (ICD-10 - M54.16) 11/03/2023 Paroxysmal atrial fibrillation (ICD-10 - I48.0) 04/28/2023 Type 2 diabetes mellitus without complication (ICD-10 - E11.9) 04/28/2023 Mixed hyperlipidemia (ICD-10 - E78.2) 11/03/2023 Dyslipidemia (ICD-10 - E78.5) 11/03/2023 Essential hypertensi on (ICD-10 - I10) 04/28/2023 Lumbar radicular syed n (ICD-10 - M54.16) 04/28/2023 Gastroesophageal ref lux disease without esophagitis (ICD-10 - K21.9) 04/28/2023 Iron deficiency anem ia (ICD-10 - D50.9) 04/28/2023 Encounter for immunization (ICD-10 - Z23) 04/28/2023 Screening for breast cancer (ICD-10 - Z12.39) 04/28/2023 BMI 39.0-39.9,adult (ICD-10 - Z68.39) 08/02/2023 Other A1c much improved. Continue same medication. PLAN OF TREATMENT Next Appt Details Provider Name:Parrish Moses, 05/03/2024 09:30:00 AM, [address], [address], [place], [id number], Insurance Providers Payer Name Payer Address Payer Phone Subscriber Number Group Number Insured Name Patient Relationship to Insured Coverage Start Date Coverage End Date MEDICARE PART B [address] [address] [place] [address] [id number] ABRILARMEN ZHAOEN Self - patient is the insured [facility] [address] [place] [address] [id number] JIAN SOSUA Self - patient is the insured MEDICATIONS ADMINISTERED Medication Instructions Date of Administration Dosage Notes Dexamethasone 10/24/2007 1 mL Dexamethasone 06/11/2015 1 mL MEDICAL (GENERAL) HISTORY Medical History History ICD Code HBP hyperlipidemia depression Type 2 diabetes 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 Sam 04/2022 Cataract Surgery Bilateral Two Weeks Apa rt 08/2022 Heart Cath/ Stent x 2 to left main and L AD - Dr. Valerio 05/30/2023 Hospitalization History Reason Date(Month/Year) childbirth [facility] ER- Shortness of Breath and Afib 07/11 12/30
[2023-11-17 11:44] LABS: Chloride 106 mmol/L (98-107); Sodium 144 mmol/L (136-145)
[2023-11-17 11:45] LABS: Potassium 4.2 mmoL/L (3.5-5.1)
[2023-11-17 11:47] LABS: Anion Gap 12.2 mEq/L (5-15); Blood Urea Nitrogen 38 mg/dl (7-17); Carbon Dioxide 30 mmol/L (22.0-30.0); Estimated Glomerular Filt Rate 29 ml/min (>60); GFR (African American) 36 ML/MIN (>60)
[2023-11-17 11:48] LABS: Calcium 9.2 mg/dl (8.4-10.2); Glucose 149 mg/dl (74-100)
== END 2023-11-17 23:59 | disposition home or self-care (01) ==
LOC: LAB 10:28
PROVIDERS: Physician Assistant; PCP Family Medicine; Visit Provider Internal Medicine
DX: E78.2 Mixed hyperlipidemia (principal); Z95.5 Presence of coronary angioplasty implant and graft; E11.9 Type 2 diabetes mellitus without complications; I10 Essential (primary) hypertension; I25.10 Atherosclerotic heart disease of native coronary artery without angina pectoris; I11.9 Hypertensive heart disease without heart failure
CPT/HCPCS: 36415; 80048

== ENCOUNTER 2023-12-22 07:26 | Outpatient (CLI) | payer MEDICARE, SELFPAY ==
[2023-12-22 08:59] LABS: Chloride 107 mmol/L (98-107); Potassium 4.7 mmoL/L (3.5-5.1); Sodium 142 mmol/L (136-145)
[2023-12-22 09:02] LABS: Blood Urea Nitrogen 32 mg/dl (7-17); Estimated Glomerular Filt Rate 34 ml/min (>60); GFR (African American) 41 ML/MIN (>60)
[2023-12-22 09:03] LABS: Anion Gap 10.7 mEq/L (5-15); Calcium 9.5 mg/dl (8.4-10.2); Carbon Dioxide 29 mmol/L (22.0-30.0); Glucose 188 mg/dl (74-100)
== END 2023-12-22 23:59 | disposition home or self-care (01) ==
LOC: LAB 07:27
PROVIDERS: Physician Assistant; PCP Family Medicine; Visit Provider Internal Medicine
DX: E78.2 Mixed hyperlipidemia (principal); Z95.5 Presence of coronary angioplasty implant and graft; E11.9 Type 2 diabetes mellitus without complications; I10 Essential (primary) hypertension; I25.10 Atherosclerotic heart disease of native coronary artery without angina pectoris; I11.9 Hypertensive heart disease without heart failure
CPT/HCPCS: 36415; 80048

== ENCOUNTER 2024-01-12 07:59 | Day surgery (SDC) | payer MEDICARE, SELFPAY ==
[2024-01-04 09:32] VITALS: BMI 39.0
[2024-01-12 08:14] VITALS: BP 152/63; PULSE 70; RESP 18; TEMP 36.7; O2SAT 95; BMI 39.0
--- NOTE | 2024-01-12 08:28 | P.PNANES_ITS ---
[facility] Disclaimer: The information contained in this section may have been updated after the patient was seen, as this information can be updated by other users. Medical History History of left heart catheterization Abnormal findings on diagnostic imaging of heart and coronary circulation Angina pectoris Atypical chest pain History of COVID-19 Allergies History of anemia SOB (shortness of breath) on exertion Hypertension Colon polyp Positive colorectal cancer screening using Cologuard test GERD (gastroesophageal reflux disease) Epistaxis Aortic stenosis PAF (paroxysmal atrial fibrillation) Pincer nail deformity Atrial fibrillation with RVR Edema of lower extremity Lymphedema of left lower extremity Callus of foot Acquired hammer toes of both feet Acquired hallux valgus of right foot Onychodystrophy Onychogryphosis Keratosis Diabetic foot Dyspnea Murmur, heart HHD (hypertensive heart disease) CAD (coronary artery disease) Malignant essential hypertension DM2 (diabetes mellitus, type 2) Typical angina Abnormal result of cardiovascular function study UTI (urinary tract infection) Surgical History History of colonoscopy History of coronary artery stent placement Family History Other Diabetes Family history of heart disease Family history of hypertension Social History Smoking Status: Former smoker alcohol intake: never substance use type: denies use current occupational status: retired Travel in the last 8 weeks: None household members: spouse housing: house caffeine: No [facility] Anesthesia Checklist Patient Identification Patient Identification: Verbal (Name & ) Structural Data Admitted From: Home Planned Operative Procedure/s: colonoscopy Consent for Planned Operative Procedure(s) Verified: Yes NPO Status Verified Time NPO: 00:00 Additional verifications Anesthesia Reactions: No Hx Blood Transfusions: No Blood Transfusion Reaction: No Airway Assessment Mallampati Score:: Class III C-Spine Mobility Assessed: Yes TMJ Mobility Assessed: Yes Dentition: Good Dentition Neurological Assessment Level of Consciousness: Awake, Alert and Appropriate Anesthesia Plan Anesthesia Risk discussed: Yes Anesthesia Plan: Verified ASA Class: III Anesthesia Type: MAC
[2024-01-12 08:30] VITALS: O2SAT 95
--- NOTE | 2024-01-12 08:34 | P.HP_ITS ---
History of Present Illness *Admission Date: 01/12/24 *Reason for visit:: Screening colonoscopy *History of present illness: Mrs. Sousa is a 73-year-old female who is here for screening colonoscopy. She did have a positive Cologuard. She has had 2 attempted colonoscopies which were incomplete with poor bowel preparation and a barium enema which was also difficult to interpret. The patient also had a barium enema with no obvious lesion. The examination is deemed medically necessary for colonoscopy. The patient has been seen, interviewed and examined prior to the procedure by both myself and the anesthesia provider. [facility] Disclaimer: The information contained in this section may have been updated after the patient was seen, as this information can be updated by other users. Medical History History of left heart catheterization Abnormal findings on diagnostic imaging of heart and coronary circulation Angina pectoris Atypical chest pain History of COVID-19 Allergies History of anemia SOB (shortness of breath) on exertion Hypertension Colon polyp Positive colorectal cancer screening using Cologuard test GERD (gastroesophageal reflux disease) Epistaxis Aortic stenosis PAF (paroxysmal atrial fibrillation) Pincer nail deformity Atrial fibrillation with RVR Edema of lower extremity Lymphedema of left lower extremity Callus of foot Acquired hammer toes of both feet Acquired hallux valgus of right foot Onychodystrophy Onychogryphosis Keratosis Diabetic foot Dyspnea Murmur, heart HHD (hypertensive heart disease) CAD (coronary artery disease) Malignant essential hypertension DM2 (diabetes mellitus, type 2) Typical angina Abnormal result of cardiovascular function study UTI (urinary tract infection) Surgical History History of colonoscopy History of coronary artery stent placement Family History Other Diabetes Family history of heart disease Family history of hypertension Social History Smoking Status: Former smoker alcohol intake: never substance use type: denies use current occupational status: retired Travel in the last 8 weeks: None household members: spouse housing: house caffeine: No Other Medical History Have you received the Flu Vaccine for this season: No Have you received the Pneumonia Vaccine: Yes Review of Systems Review of Systems Review of systems (narrative): Negative *Cardiovascular Comments: Negative *Gastrointestinal Comments: Negative *Genitourinary Comments: Negative *Musculoskeletal Comments: Negative *Neurologic Comments: Negative Meds Home Medications and Allergies Home Medications ?Medication ?Instructions ?Recorded ?Confirmed ?Type fenofibric acid (choline) 135 mg 135 mg PO DAILY Cholesterol 01/13/18 01/04/24 History capsule,delayed release (Trilipix) ferrous sulfate 325 mg (65 mg 325 mg PO DAILY Supplement 01/13/18 01/04/24 History iron) tablet multivitamin 1 each PO DAILY Supplement 01/13/18 01/04/24 History sitagliptin phosphate 100 mg 100 mg PO DAILY Diabetes 01/13/18 01/04/24 History tablet (Januvia) glimepiride 4 mg tablet 4 mg PO DAILY Diabetes 05/08/19 01/04/24 History cyanocobalamin (vitamin B-12) 1,000 mcg PO DAILY Supplement 08/08/19 01/04/24 History 1,000 mcg capsule famotidine 40 mg tablet 40 mg PO HS Acid Reflux 05/07/20 01/04/24 History gabapentin 600 mg tablet 600 mg PO BID Pain 08/07/21 01/04/24 History ascorbic acid (vitamin C) 500 mg 500 mg PO DAILY . 02/05/22 01/04/24 History capsule cholecalciferol (vitamin D3) 25 25 mcg PO DAILY Supplement 02/05/22 01/04/24 History mcg (1,000 unit) capsule zinc acetate 25 mg (zinc) capsule 25 mg PO DAILY Supplement 02/05/22 01/04/24 History (Galzin) rosuvastatin 20 mg tablet 20 mg PO DAILY Cholesterol #90 tabs 08/24/22 01/04/24 Rx dapagliflozin propanediol 10 mg 10 mg PO DAILY 02/03/23 01/04/24 History tablet (Farxiga) amlodipine 10 mg tablet (Norvasc) 10 mg PO BID High Blood Pressure 05/30/23 01/12/24 History insulin glargine 100 unit/mL (3 20 unit SQ DAILY Diabetes 05/30/23 01/04/24 History mL) subcutaneous pen (Lantus Solostar U-100 Insulin) rivaroxaban 20 mg tablet (Xarelto) 20 mg PO QPMWITHMEAL Blood 05/30/23 01/12/24 History Thinner/Afib valsartan 320 1 tab PO DAILY High Blood Pressure 05/30/23 01/12/24 History mg-hydrochlorothiazide 25 mg tablet clopidogrel 75 mg tablet See Rx Instructions .Route 06/29/23 01/04/24 Rx .COMPLEX #90 tabs metoprolol succinate 100 mg 150 mg (1.5 x 100 mg) PO DAILY 08/01/23 01/04/24 Rx tablet,extended release 24 hr High Blood Pressure 90 days #135 (Toprol XL) tabs spironolactone 50 mg tablet 50 mg PO DAILY #30 tabs 10/31/23 01/04/24 Rx (Aldactone) mupirocin 2 % topical ointment 1 applic topical BID infection 14 11/01/23 12/29/23 Rx days #15 grams sod picosulf 10 mg-magnes 3.5 175 ml PO DAILY Bowel Prep 2 doses 12/28/23 12/29/23 Rx gram-citric 12 gram/175 mL oral #350 mL solution (Clenpiq) pen needle, diabetic 32 gauge x #100 ea 12/29/23 12/29/23 History 3/16 (Comfort EZ Pen [place]) New Prescriptions to Start Prescriptions: Allergies Allergy/AdvReac Type Severity Reaction Status Date / Time Sulfa (Sulfonamide Allergy Other Verified 01/04/24 09:28 Antibiotics) Exam Data for Last 24 hours Vital signs and Labs for Last 24 Hours: Temp Pulse Resp BP Pulse Ox O2 Del Method 98.0 F 70 18 152/63 H 95 Room Air 01/12/24 08:14 01/12/24 08:14 01/12/24 08:14 01/12/24 08:14 01/12/24 08:14 01/12/24 08:14 I & O for Last 24 hours: Intake & Output 01/09/24 01/10/24 01/11/24 01/12/24 23:59 23:59 23:59 23:59 Weight 200 lb *Routine HEENT Exam Head: Present normocephalic Eye: Present EOMI and PERRL ENT: Present mucous membranes moist *Routine Neck Exam Neck: Present supple *Routine Respiratory Exam Respiratory: Present CTA bilaterally *Routine Cardiovascular Exam Cardiovascular: Present RRR *Routine Abdominal Exam Abdominal: Present soft and normoactive bowel sounds; Absent tenderness *Routine Rectal Exam Rectal:: deferred *Routine Genitalia Exam Genitalia:: deferred *Routine Extremities Exam Extremities: Absent cyanosis, clubbing or edema *Routine Skin Exam Skin: Present warm; Absent rash *Routine Neurological Exam Neurological: Present alert and oriented X3 Assessment and Plan *Assessment and plan (1) Screening for colon cancer: Status: Acute Category: Medical Code(s): Z12.11 - Encounter for screening for malignant neoplasm of colon Plan A/P: 1. Screening for colon cancer is the preprocedural diagnosis. The patient will be anesthetized/sedated using MAC sedation. The patient has been seen and examined. Cardiac and lung assessment prior to the examination is stable. Proc eed with planned colonoscopy
[2024-01-12 08:51] LABS: POC Glucose,Bedside 140 (70-110)
--- NOTE | 2024-01-12 08:53 | P.PCN_ITS ---
[facility] Procedure Note Date: 01/12/24 Time: 08:53 Procedure Note:: Colonoscopy Procedure Report: Colonoscopy with cold snare polypectomy Endoscopist: David Carreno II, MD Referring physician: Seth Sam M.D./Yaya Blakely MD Date of Procedure: January 12, 2024 Equipment: Olympus 190 variable stiffness pediatric colonoscope Sedation: MAC sedation Indication: Mrs. Sousa is a 73-year-old female who had a positive Cologuard. She had a colonoscopy with Dr. Seth Sam M.D. in April 2022 which was complicated by poor bowel preparation and poor relaxation. There was a polyp removed at 45 cm. A barium enema revealed no obvious lesions. Another attempted colonoscopy was performed in March 2023 and again there was an exceedingly poor bowel preparation on multiple occasions. This latter exam was an extended flexible sigmoidoscopy and not completed to the cecum. Dr. Sam felt because of her positive Cologuard that a full well-prepped colonoscopy was indicated. The patient reports no abdominal pain, weight loss, change in her bowel habits or rectal bleeding. She reports no family history of colon cancer. She does report excessive wiping. Procedure: Prior to the procedure, a history and physical exam was performed, and patient's medications and allergies were reviewed. The risks, benefits and alternatives of the sedation and procedure were discussed with the patient. All questions were answered and informed consent was obtained. The patient was brought to the procedure room. Patient identification and proposed procedure were verified by the physician and the nurse. The patient was placed in a left lateral decubitus position and the scope was passed under direct vision. Throughout the procedure, the patient's blood pressure, pulse, and oxygen saturations were monitored continuously. The colonoscopy was accomplished without difficulty. The patient tolerated the procedure well. Findings: On digital rectal examination there was normal rectal tone. There were no external hemorrhoids. The colonoscope was introduced through the anal canal to the rectum and advanced to the cecum. The ileocecal valve and appendiceal orifice were identified. The scope was advanced a short distance into the ileum which appeared grossly normal. The scope was then withdrawn into the colon. The cecum, ascending and transverse colon and mucosa were grossly normal. There were extensive scattered diverticuli throughout the descending and sigmoid colon (LEFT colon). There was a 5 mm polyp in the sigmoid colon which was a hyperplastic appearing polyp and removed via cold snare polypectomy. The rectum itself was normal. Upon retroflexion within the rectum there were grade 1-2 internal hemorrhoids. The preparation was excellent throughout with [place] Preparation Score of 9. The cecal time was 10 minutes. Impression: 1. Diminutive hyperplastic appearing sigmoid polyp 2. Extensive left-sided diverticulosis 3. Grade 1-2 internal hemorrhoids Plan: I will follow-up the polyp histology. Based upon her age, I do not feel that she will require any further preventative colonoscopy. I would encourage bulking fiber supplementation (FiberCon 2 tablets p.o. every morning or psyllium/Konsyl) on a long-term daily maintenance basis.
[2024-01-12 08:55] VITALS: BP 105/49; PULSE 61; RESP 16; TEMP 36.6; O2SAT 93
[2024-01-12 09:10] VITALS: BP 137/86; PULSE 60; RESP 16; TEMP 36.6; O2SAT 93
[2024-01-12 09:20] VITALS: BP 150/82; PULSE 62; RESP 18; O2SAT 94
[2024-01-12 09:38] VITALS: BP 156/71; PULSE 64; RESP 18; O2SAT 94
== END 2024-01-12 09:40 | disposition home or self-care (01) ==
PROVIDERS: PCP Family Medicine; Visit Provider Internal Medicine Gastroenterology
PROC: (CPT 45385; principal; 2024-01-12 09:00)
DX: Z12.11 Encounter for screening for malignant neoplasm of colon (principal); R19.5 Other fecal abnormalities; Z86.0100 Personal history of colon polyps, unspecified; K63.5 Polyp of colon; K57.30 Diverticulosis of large intestine without perforation or abscess without bleeding; K64.8 Other hemorrhoids
CPT/HCPCS: 45385; 82962; 88305; 99221

== ENCOUNTER 2024-02-22 14:25 | Outpatient (CLI) | payer MEDICARE, SELFPAY ==
[2024-02-22 14:57] LABS: Basophils # 0.1 K/mm3 (0-0.2); Basophils % 0.9 % (0.1-2.0); Eosinophils # 0.1 K/mm3 (0.0-0.4); Eosinophils % 1.8 % (0.1-12.0); Hematocrit 26.4 % (37.0-47.0); Hemoglobin 8.3 g/dL (12.2-16.2); Lymphocytes # 1.4 K/mm3 (0.7-4.5); Lymphocytes % 19.5 % (10-50); Mean Corpuscular HGB Conc 31.4 g/dL (31.8-35.4); Mean Corpuscular Hemoglobin 27.9 pg (27.0-31.2); Mean Corpuscular Volume 89.1 fl (81-99); Mean Platelet Volume 9.3 fl (7.4-10.4); Monocytes # 0.5 K/mm3 (0.1-1.0); Monocytes % 6.9 % (1.7-9.3); Neutrophils # 5.1 K/mm3 (1.8-7.8); Neutrophils % 70.9 % (37.0-80.0); Platelet Count 355 K/mm3 (142-424); Red Blood Count 2.96 M/mm3 (4.20-5.40); Red Cell Distribution Width 15.3 % (11.5-17.5); White Blood Count 7.2 K/mm3 (4.8-10.8)
[2024-02-22 15:01] LABS: Alanine Aminotransferase 30 U/L (12-78); Albumin Level 3.9 g/dl (3.5-5.0); Alkaline Phosphatase 39 U/L (38-126); Anion Gap 16.5 mEq/L (5-15); Aspartate Amino Transferase 33 U/L (14-36); Bilirubin,Direct 0.4 mg/dl (0.0-0.4); Bilirubin,Indirect 0.1 mg/dL (0.0-0.9); Bilirubin,Total 0.5 mg/dl (0.2-1.3); Bilirubin,Unconjugated 0.1 mg/dL (0.0-1.1); Blood Urea Nitrogen 49 mg/dl (7-17); Calcium 9.8 mg/dl (8.4-10.2); Carbon Dioxide 26 mmol/L (22.0-30.0); Chloride 107 mmol/L (98-107); Chol/HDL Ratio 3.2 (1-3.5); Cholesterol 98 mg/dl (140-200); Estimated Glomerular Filt Rate 29 ml/min (>60); GFR (African American) 36 ML/MIN (>60); Glucose 131 mg/dl (74-100); HDL Cholesterol 31 mg/dl (40-60); Magnesium 2.2 mg/dl (1.6-2.3); Potassium 4.5 mmoL/L (3.5-5.1); Sodium 145 mmol/L (136-145); Total Protein,Serum 6.7 g/dl (6.3-8.2); Triglycerides 193 mg/dl (30-150); VLDL Cholesterol 39 mg/dL (0-40)
[2024-02-22 15:12] LABS: Direct LDL Cholesterol 40.52 mg/dL (100-129)
[2024-02-22 15:31] LABS: Thyroid Stimulating Hormone 1.77 uIU/mL (0.465-4.68)
[2024-02-22 15:33] LABS: Free T4 (Free Thyroxine) 1.36 ng/dl (0.78-2.19)
--- NOTE | 2024-02-22 16:18 | PC.NURSE ---
this nurse called by scheduling regarding pt being added on for cardioversion on 02/23/24. Spoke with Woody Garcia RN Charge regarding scheduling pt. Patient called per this nurse and instructed on npo status, needing a motor pool driver, and medication prior to procedure. pt to arrive at 0900.
== END 2024-02-22 23:59 | disposition home or self-care (01) ==
LOC: LAB 14:27
PROVIDERS: PCP Family Medicine; Visit Provider Physician Assistant
DX: E78.2 Mixed hyperlipidemia (principal); I48.0 Paroxysmal atrial fibrillation; E11.9 Type 2 diabetes mellitus without complications; I10 Essential (primary) hypertension; I25.10 Atherosclerotic heart disease of native coronary artery without angina pectoris; I11.9 Hypertensive heart disease without heart failure; Z95.5 Presence of coronary angioplasty implant and graft
CPT/HCPCS: 36415; 80048; 80061; 80076; 83735; 84439; 84443; 85025

== ENCOUNTER 2024-02-23 08:49 | Day surgery (SDC) | payer MEDICARE, SELFPAY ==
[2024-02-23 08:53] VITALS: BP 156/58; PULSE 100; RESP 22; O2SAT 95
[2024-02-23 08:54] VITALS: BMI 41.2
[2024-02-23 09:15] VITALS: BP 156/86; PULSE 107; RESP 20; O2SAT 96
[2024-02-23 09:35] VITALS: BP 137/61; PULSE 65; RESP 20; O2SAT 95
[2024-02-23] MEDS: MIDAZOLAM HCL 1MG/ML 5ML VIAL 1 MG IV (09:39)
[2024-02-23] MEDS: 0.9 % SODIUM CHLORIDE 1000ML 1,000 ML 25 ML IV (09:39)
[2024-02-23] MEDS: FENTANYL 100MCG/2ML VIAL 50 MCG IV (09:39)
--- NOTE | 2024-02-23 09:40 | ECG_ITS ---
APPROVED REPORT Exam: Resting ECG HR:58 bpm ECG Measurements Heart Rate 58 AXES IL 180 P 62 QRSd 94 QRS 76 QT 417 T 28 QTc 414 Conclusion SINUS BRADYCARDIA BORDERLINE ECG UNCONFIRMED REPORT Electronically signed by : Yehuda Koehler MD 02/24/2024 10:30:07
[2024-02-23 09:43] VITALS: BP 128/62; PULSE 60; RESP 20; O2SAT 95
[2024-02-23 09:44] VITALS: PULSE 65
--- NOTE | 2024-02-23 09:44 | EXP.CARDIOVE ---
[facility] Cardioversion Cardioversion Date: 02/23/24 Provider:: NATALIE Lamar Procedure Performed:: Synchronized electrical cardioversion Diagnosis:: atrial fibrillation Procedure Summary:: Patient was brought to the cardiac Foiling Machine Operator as an outpatient. After informed consent was obtained, 2 mg of Versed and 50 mcg of fentanyl were given IV for sedation. After patient was sedated she received a single 150 J shock which converted her from atrial fibrillation to normal sinus rhythm. Patient tolerated the procedure without complications. Complications:: None Conculsion:: Successful electrical cardioversion to sinus rhythm.
[2024-02-23 10:00] VITALS: BP 132/60; PULSE 61; RESP 17; O2SAT 94
== END 2024-02-23 10:36 | disposition home or self-care (01) ==
PROVIDERS: Internal Medicine; PCP Family Medicine; Visit Provider Internal Medicine
PROC: 5A2204Z Restoration of Cardiac Rhythm, Single (ICD-10-PCS; principal; 2024-02-23 10:15)
DX: I48.0 Paroxysmal atrial fibrillation (principal); Z79.899 Other long term (current) drug therapy; Z79.01 Long term (current) use of anticoagulants; Z79.4 Long term (current) use of insulin; R06.02 Shortness of breath; E11.9 Type 2 diabetes mellitus without complications; I10 Essential (primary) hypertension; I25.10 Atherosclerotic heart disease of native coronary artery without angina pectoris
CPT/HCPCS: 92960; 93005; 99152; J2250; J3010; J7030

== ENCOUNTER 2024-02-26 20:55 | Emergency (ER) | payer MEDICARE, SELFPAY ==
[2024-02-26 20:56] VITALS: BP 192/125; PULSE 89; RESP 20; TEMP 36.9; O2SAT 90; BMI 41.0
--- NOTE | 2024-02-26 20:58 | XR_ITS ---
PROCEDURE INFORMATION: Exam: XR Chest Exam date and time: 02/26/2024 8:56 PM Age: 73 years old Clinical indication: Shortness of breath; Additional info: SOA TECHNIQUE: Imaging protocol: Radiologic exam of the chest. Views: 1 view. COMPARISON: CT ANGIO CHEST 08/07/2020 1:56 PM FINDINGS: Lungs: Unremarkable. No consolidation. Pleural spaces: Unremarkable. No pleural effusion. No pneumothorax. Heart/Mediastinum: Unremarkable. No cardiomegaly. Bones/joints: Unremarkable. IMPRESSION: No acute findings.
--- NOTE | 2024-02-26 20:58 | ECG_ITS ---
APPROVED REPORT Exam: Resting ECG HR:78 bpm ECG Measurements Heart Rate 78 AXES DC 179 P 80 QRSd 96 QRS 68 QT 363 T 22 QTc 396 Conclusion SINUS RHYTHM WITH OCCASIONAL SUPRAVENTRICULAR PREMATURE COMPLEXES LOW QRS VOLTAGE IN PRECORDIAL LEADS [QRS DEFLECTION < 1.0 mV IN CHEST LEADS] BORDERLINE ECG Electronically signed by : DANA REAL, 03/01/2024 07:42:54
[2024-02-26 21:25] VITALS: BP 181/69; PULSE 72; O2SAT 98
--- NOTE | 2024-02-26 21:27 | [facility].EDCP ---
Discharge Plan Disposition Chief Complaint: Shortness of Breath/Dyspnea Prescriptions Prescriptions: New furosemide 40 mg tablet 40 mg PO DAILY Qty: 7 0RF Rx Instructions: Take 1 tablet each morning No Action gabapentin 600 mg tablet 600 mg PO BID Patient Comments: TAKE 1 TABLET 2 TIMES EACH DAY Galzin 25 mg (zinc) capsule 25 mg PO DAILY cholecalciferol (vitamin D3) 25 mcg (1,000 unit) capsule 25 mcg PO DAILY ascorbic acid (vitamin C) 500 mg capsule 500 mg PO DAILY Farxiga 10 mg tablet 10 mg PO DAILY Patient Comments: TAKE 1 TABLET 1 TIME EACH DAY mupirocin 2 % ointment 1 applic topical BID 14 Days Qty: 15 0RF (DME) pen needle, diabetic [Comfort EZ Pen [place]] 32 gauge x 3/16 needle See Rx Instructions .ROUTE .MEDSUPPLY Qty: 100 Patient Comments: USE TO INJECT INSULIN UNDER THE SKIN 1 TIME EACH DAY Rx Instructions: As directed cyanocobalamin (vitamin B-12) 1,000 mcg capsule 1,000 mcg PO DAILY famotidine 40 mg tablet 40 mg PO HS Patient Comments: TAKE 1 TABLET 1 TIME EACH DAY AT BEDTIME spironolactone [Aldactone] 50 mg tablet 50 mg PO DAILY Qty: 30 5RF metoprolol succinate [Toprol XL] 100 mg tablet extended release 24 hr 100 mg PO BID 90 Days Qty: 180 3RF rosuvastatin 20 mg tablet 20 mg PO DAILY Qty: 90 3RF clopidogrel 75 mg tablet See Rx Instructions .ROUTE .COMPLEX Qty: 90 3RF Dose Instruction: TAKE 1 TABLET 1 TIME EACH DAY Rx Instructions: TAKE 1 TABLET 1 TIME EACH DAY multivitamin 1 EACH tablet 1 each PO DAILY ferrous sulfate 325 MG tablet 325 mg PO DAILY Januvia 100 MG tablet 100 mg PO DAILY fenofibric acid (choline) [Trilipix] 135 MG capsule,delayed release(DR/EC) 135 mg PO DAILY glimepiride 4 mg tablet 4 mg PO DAILY valsartan-hydrochlorothiazide 320-25 mg tablet 1 tab PO DAILY Patient Comments: TAKE 1 TABLET 1 TIME EACH DAY insulin glargine [Lantus Solostar U-100 Insulin] 100 unit/mL (3 mL) insulin pen 20 unit SQ DAILY Patient Comments: INJECT 20 UNITS UNDER THE SKIN 1 TIME EACH DAY AND INCREASE DOSE DIRECTED Xarelto 20 mg tablet 20 mg PO QPMWITHMEAL Referrals Follow up/Referrals: Reddy,Ruel Yaya, MD [Primary Care Provider] - See instructions Activity Restrictions/Add. Instructions Additional Instructions/Restrictions: 40 mg (1 tablet) Lasix each morning until following up with cardiology on 02/28. Call your family doctor to establish care for this visit to the emergency department and schedule follow-up within 48 hours to ensure improvement. If you have any worsening of your condition or any other concerning signs or symptoms, return to the emergency department or your primary care doctor for further evaluation. Clinical Impressions Clinical Impression: CHF exacerbation, Shortness of breath Print Language Print Language: Bhutanese Discharge ED Provider: Douglas Smith HPI General Chief Complaint: Shortness of Breath/Dyspnea Stated Complaint: SOA Time Seen by Provider: 02/26/24 20:57 Mode of Arrival: Wheelchair Source of Information: Patient Limitations: No Limitations Description of Symptoms (Recalled from ER Triage Doc. by RN): pt presents to ED for SOA that started this afternoon and has gotten worse. Pt states she used her MIL's oxygen and that made her feel better. Pt had cardioversion w/ Dr. Valerio on . Pt denies chest pain and states the SOA only started today. Pt is A&O*4 at this time. Family is bedside. MD is bedside. History of Present Illness HPI narrative: Please note that above description of symptoms, in this electronic medical record under categorization of recalled from ER triage doctor by RN are reflective of an initial nursing assessment, however, is not reflective of my full history and physical exam that was personally taken and clarified. Consequentially, this preceding description of symptoms, which may include the patient's categorized chief complaint in the EMR, do not reflect my personal clinical impression, and the ultimate description of history of present illness and patient stated complaints should be deferred to this section of the note. Unless stated otherwise or congruent with this section of the note, additional signs, symptoms, or incongruence should be interpreted as inaccurate with my clinical impression. Related Data Home Medications ?Medication ?Instructions ?Recorded ?Confirmed fenofibric acid (choline) 135 mg 135 mg PO DAILY Cholesterol 01/13/18 02/22/24 capsule,delayed release (Trilipix) ferrous sulfate 325 mg (65 mg 325 mg PO DAILY Supplement 01/13/18 02/22/24 iron) tablet multivitamin 1 each PO DAILY Supplement 01/13/18 02/22/24 sitagliptin phosphate 100 mg 100 mg PO DAILY Diabetes 01/13/18 02/22/24 tablet (Januvia) glimepiride 4 mg tablet 4 mg PO DAILY Diabetes 05/08/19 02/22/24 cyanocobalamin (vitamin B-12) 1,000 mcg PO DAILY Supplement 08/08/19 02/22/24 1,000 mcg capsule famotidine 40 mg tablet 40 mg PO HS Acid Reflux 05/07/20 02/22/24 gabapentin 600 mg tablet 600 mg PO BID Pain 08/07/21 02/22/24 ascorbic acid (vitamin C) 500 mg 500 mg PO DAILY . 02/05/22 02/22/24 capsule cholecalciferol (vitamin D3) 25 25 mcg PO DAILY Supplement 02/05/22 02/22/24 mcg (1,000 unit) capsule zinc acetate 25 mg (zinc) capsule 25 mg PO DAILY Supplement 02/05/22 02/22/24 (Galzin) dapagliflozin propanediol 10 mg 10 mg PO DAILY 02/03/23 02/22/24 tablet (Farxiga) insulin glargine 100 unit/mL (3 20 unit SQ DAILY Diabetes 05/30/23 02/22/24 mL) subcutaneous pen (Lantus Solostar U-100 Insulin) rivaroxaban 20 mg tablet (Xarelto) 20 mg PO QPMWITHMEAL Blood 05/30/23 02/22/24 Thinner/Afib valsartan 320 1 tab PO DAILY High Blood Pressure 05/30/23 02/22/24 mg-hydrochlorothiazide 25 mg tablet pen needle, diabetic 32 gauge x #100 ea 12/29/23 02/22/2406/24 (Comfort EZ Pen [place]) Previous Rx's ?Medication ?Instructions ?Recorded rosuvastatin 20 mg tablet 20 mg PO DAILY Cholesterol #90 tabs 08/24/22 clopidogrel 75 mg tablet See Rx Instructions .Route 06/29/23 .COMPLEX #90 tabs spironolactone 50 mg tablet 50 mg PO DAILY #30 tabs 10/31/23 (Aldactone) mupirocin 2 % topical ointment 1 applic topical BID infection 14 11/01/23 days #15 grams metoprolol succinate 100 mg 100 mg PO BID High Blood Pressure 02/22/24 tablet,extended release 24 hr 90 days #180 tabs (Toprol XL) furosemide 40 mg tablet 40 mg PO DAILY #7 tabs 02/26/24 Allergies Allergy/AdvReac Type Severity Reaction Status Date / Time Sulfa (Sulfonamide Allergy Other Verified 02/22/24 13:27 Antibiotics) [facility] Disclaimer: The information contained in this section may have been updated after the patient was seen, as this information can be updated by other users. Medical History (Updated 02/26/24 @ 22:54 by Douglas Smith MD) PAF (paroxysmal atrial fibrillation) History of left heart catheterization Abnormal findings on diagnostic imaging of heart and coronary circulation Angina pectoris Atypical chest pain History of COVID-19 Allergies History of anemia SOB (shortness of breath) on exertion Hypertension Colon polyp Positive colorectal cancer screening using Cologuard test GERD (gastroesophageal reflux disease) Epistaxis Aortic stenosis Pincer nail deformity Atrial fibrillation with RVR Edema of lower extremity Lymphedema of left lower extremity Callus of foot Acquired hammer toes of both feet Acquired hallux valgus of right foot Onychodystrophy Onychogryphosis Keratosis Diabetic foot Dyspnea Murmur, heart HHD (hypertensive heart disease) CAD (coronary artery disease) Malignant essential hypertension DM2 (diabetes mellitus, type 2) Typical angina Abnormal result of cardiovascular function study UTI (urinary tract infection) Surgical History History of colonoscopy History of coronary artery stent placement Family History Other Diabetes Family history of heart disease Family history of hypertension Social History Smoking Status: Former smoker alcohol intake: never substance use type: denies use current occupational status: retired Travel in the last 8 weeks: None household members: spouse housing: house caffeine: No Other Medical History Have you received the Flu Vaccine for this season: No Have you received the Pneumonia Vaccine: Yes ROS Obtained: Yes All systems reviewed & no additional complaints except as documented Physical Exam General General appearance: alert, in no apparent distress, anxious and obese Neck Neck exam: Present trachea midline Chest Chest inspection: Present normal inspection and symmetric chest wall rise Respiratory Respiratory exam: Present normal lung sounds bilaterally; Absent respiratory distress, wheezes, stridor, accessory muscle use or prolonged expiratory phase Cardiovascular Cardiovascular exam: Present regular rate, normal rhythm, systolic murmur (Right upper sternal border) and other (Pulses equal and symmetric in upper and lower extremities) Abdominal Exam Abdominal exam: Present soft; Absent distention or tenderness Extremities Exam Extremities exam: Absent edema Neurological Exam Neurological exam: Present alert, oriented X3 and CN II-XII intact Skin Skin exam: Present warm and dry; Absent cyanosis, diaphoresis or pallor HEART Score HEART Score HEART Score assessment performed?: Yes History (anamnesis): Moderately suspicious ECG: Normal Age: >65 years Risk factors: 3 or more risk factors Troponin: </= normal limit HEART Score: 5 Critical Care Critical Care Time Critical Care Time: No Medical Decision Making Medical Records Medical records reviewed: Yes I reviewed the patient's medical records. Cas Inquiry Pt receiving controlled substance: No Cas was queried for this patient: No Vital Signs Vital Signs: 02/26/24 20:56 02/26/24 21:25 02/26/24 21:30 Temperature 98.4 F Temperature Source Oral Pulse Rate 72 73 Pulse Rate [Left] 89 Respiratory Rate 20 21 Blood Pressure 181/69 H 164/65 H Blood Pressure [Right Arm] 192/125 H Blood Pressure Mean [Right Arm] 147 02 Sat by Pulse Oximetry 90 L 98 97 Oxygen Delivery Method Nasal Cannula Oxygen Flow Rate (LPM) 2 02/26/24 22:00 Temperature Temperature Source Pulse Rate 69 Pulse Rate [Left] Respiratory Rate 28 H Blood Pressure 151/66 H Blood Pressure [Right Arm] Blood Pressure Mean [Right Arm] 02 Sat by Pulse Oximetry 99 Oxygen Delivery Method Oxygen Flow Rate (LPM) Lab Data Labs: Lab Results 02/26/24 21:21: WBC 8.3, RBC 2.93 L, Hgb 7.9 L, Hct 25.6 L, MCV 87.4, MCH 27.1, MCHC 31.0 L, RDW 15.8, Plt Count 390, MPV 8.9, Neut % (Auto) 76.0, Lymph % (Auto) 16.4, Hood % (Auto) 5.6, Eos % (Auto) 1.2, Baso % (Auto) 0.9, Neut # (Auto) 6.3, Lymph # (Auto) 1.4, Hood # (Auto) 0.5, Eos # (Auto) 0.1, Baso # (Auto) 0.1, PT 17.7 H, INR 1.66 H, APTT 41.6 H, Sodium 141, Potassium 4.1, Chloride 106, Carbon Dioxide 27, Anion Gap 12.1, BUN 42 H, Creatinine 1.60 H, Estimated Creat Clear 46, Estimated GFR 32 L, Est GFR ( Amer) 38 L, Glucose 111 H, Calcium 9.5, Magnesium 2.2, Total Bilirubin 0.4, AST 30, ALT 25, Alkaline Phosphatase 48, Troponin I < 0.01, NT-Pro-B Natriuret Pep 890 H, Total Protein 6.9, Albumin 3.9, Globulin 3.0, Albumin/Globulin Ratio 1.3, Lipase 170, HIV 1&2 Antibody Rapid Nonreactive 02/26/24 21:21 02/26/24 21:21 Response Orders (Tests/Meds): ED MEDICATIONS Discontinued Medications Generic Name Dose Route Start Last Admin Trade Name Freq PRN Reason Stop Dose Admin Aspirin 324 mg 02/26/24 21:31 02/26/24 21:40 Aspirin 81mg Chewable Tablet PO 02/26/24 21:32 324 mg ONCE ONE Administration ORDERS Category Date Time Status XR chest portable Stat Exams 02/26/24 20:58 Taken Complete Blood Count Auto Diff Stat Lab 02/26/24 21:21 Completed Comprehensive Metabolic Panel Stat Lab 02/26/24 21:21 Completed HIV (1&2) Antibody Rapid Stat Lab 02/26/24 21:21 Completed Hep C Ab with Reflex to RNA Stat Lab 02/26/24 21:21 Received Lactic Acid Stat Lab 02/26/24 20:58 Ordered Lipase Stat Lab 02/26/24 21:21 Completed Magnesium Stat Lab 02/26/24 21:21 Completed NT Pro Brain Natriuretic Pep. Stat Lab 02/26/24 21:21 Completed PT INR [Prothrombin Time INR] Stat Lab 02/26/24 21:21 Completed PTT [Activated Partial Thrombo Time] Stat Lab 02/26/24 21:21 Completed Troponin I Q3H Lab 02/26/24 23:58 Ordered Troponin I Q3H Lab 02/27/24 02:58 Ordered Troponin I Stat Lab 02/26/24 21:21 Completed MDM Narrative Medical Decision Narrative: 73-year-old female history of paroxysmal on Xarelto (status post cardioversion 4 days prior), hypertension, hyperlipidemia, type 2 diabetes, CAD status post stenting x 3 presenting with shortness of breath. Patient states that since she was cardioverted, she had 2 good days felt good Tuesday, Tuesday. Today, Sunday 02/25, patient states that she has felt progressively short of breath throughout the day. No chest pain, nausea, vomiting, cough, fevers or chills. States that she is short of breath with minimal exertion. Made better with sitting up, made worse with lying down. History was obtained via conversation with patient and family. On arrival, patient hemodynamically stable, alert, oriented x4, appropriate, GCS 15, moving all extremities spontaneously, pupils equal and reactive to light. Full physical exam performed and significant for hypoxemic to the mid 80s, patient placed on 2 L nasal cannula for this. Lungs are clear to auscultation bilaterally. Cardiac exam with no lower extremity edema, pulses equal and symmetric in upper and lower extremities. Right upper sternal border murmur, normal S1 and S2 and appears to be normal sinus rhythm. Abdomen soft, nontender, nondistended. No evidence of cyanosis. Differential includes CAD, ACS, GA, pneumonia, CHF, pneumothorax, arrhythmia, among others. Patient was given 324 aspirin for symptomatic management and correction of underlying abnormalities. Patient placed on continuous cardiac monitoring and continuous pulse ox with initial blood pressure 192/125, heart rate 89, saturation 90% on 2 L nasal cannula. Independent interpretation of EKG shows normal sinus rhythm [address] or T wave changes concerning for acute ischemia. Normal axis. TN 179, QRS 96, QTc 396. Workup independently interpreted and significant for stable CBC and chemistry. BNP elevated at 890, troponin negative. On independent interpretation of imaging, no acute cardiopulmonary airspace disease. No evidence of pleural effusion or pulmonary edema. She does have cardiomegaly. See radiology read for full review of final results. Score 5. Patient given 40 mg p.o. Lasix given. On reevaluation, patient resting comfortably not requiring oxygen. Given patient presentation, workup, history, this most likely represents mild CHF exacerbation. Patient not on any diuretics at home, Lasix given here, prescription given for home-going. She states that she has close follow-up with cardiology on 02/28, I feel this is appropriate. Close return cautions were discussed. Because patient at baseline without signs or symptoms of clinical decompensation, deemed appropriate for discharge. Results were relayed to patient who voiced understanding and were agreeable to outpatient management and follow up. I discussed my clinical impression with patient and answered all questions. At this time, the evidence for any other entities in the differential is insufficient to warrant any further testing or ED observation. This was explained as well. Advisory was given that persistent or worsening symptoms require further evaluation. I confirmed the understanding of this discussion. Six Pack Loader Operator disclaimer Much of this encounter note is an electronic ground surveillance systems operator spoken language to printed text. Electronic ground surveillance systems operator of the spoken language may permit errors. Although I have reviewed the note, some errors may still exist.
[2024-02-26 21:29] LABS: Basophils # 0.1 K/mm3 (0-0.2); Basophils % 0.9 % (0.1-2.0); Eosinophils # 0.1 K/mm3 (0.0-0.4); Eosinophils % 1.2 % (0.1-12.0); Hematocrit 25.6 % (37.0-47.0); Hemoglobin 7.9 g/dL (12.2-16.2); Lymphocytes # 1.4 K/mm3 (0.7-4.5); Lymphocytes % 16.4 % (10-50); Mean Corpuscular Hemoglobin 27.1 pg (27.0-31.2); Mean Corpuscular Volume 87.4 fl (81-99); Mean Platelet Volume 8.9 fl (7.4-10.4); Monocytes # 0.5 K/mm3 (0.1-1.0); Monocytes % 5.6 % (1.7-9.3); Neutrophils # 6.3 K/mm3 (1.8-7.8); Platelet Count 390 K/mm3 (142-424); Red Blood Count 2.93 M/mm3 (4.20-5.40); Red Cell Distribution Width 15.8 % (11.5-17.5); White Blood Count 8.3 K/mm3 (4.8-10.8)
[2024-02-26 21:30] VITALS: BP 164/65; PULSE 73; RESP 21; O2SAT 97
[2024-02-26 21:38] LABS: Albumin Level 3.9 g/dl (3.5-5.0); Chloride 106 mmol/L (98-107); Potassium 4.1 mmoL/L (3.5-5.1); Sodium 141 mmol/L (136-145)
[2024-02-26] MEDS: ASPIRIN 81MG CHEWABLE TABLET 324 MG PO (21:40)
[2024-02-26 21:41] LABS: Alanine Aminotransferase 25 U/L (12-78); Albumin/Globulin Ratio 1.3 (1.1-1.8); Alkaline Phosphatase 48 U/L (38-126); Anion Gap 12.1 mEq/L (5-15); Aspartate Amino Transferase 30 U/L (14-36); Bilirubin,Total 0.4 mg/dl (0.2-1.3); Blood Urea Nitrogen 42 mg/dl (7-17); Calcium 9.5 mg/dl (8.4-10.2); Carbon Dioxide 27 mmol/L (22.0-30.0); Creatinine Clearance Estimated 46 mL/min (50-200); Estimated Glomerular Filt Rate 32 ml/min (>60); GFR (African American) 38 ML/MIN (>60); Glucose 111 mg/dl (74-100); Lipase 170 U/L (23-300); Total Protein,Serum 6.9 g/dl (6.3-8.2)
[2024-02-26 21:42] LABS: Magnesium 2.2 mg/dl (1.6-2.3)
[2024-02-26 21:45] LABS: Activated Partial Thrombo Time 41.6 seconds (22.8-30.6); INR 1.66 (0.9-1.1); Prothrombin Time 17.7 seconds (10.1-12.5)
[2024-02-26 21:51] LABS: NT Pro Brain Natriuretic Pep. 890 pg/mL (0-125)
[2024-02-26 21:55] LABS: Troponin I < 0.01 ng/ml (0.00-0.034)
[2024-02-26 22:00] VITALS: BP 151/66; PULSE 69; RESP 28; O2SAT 99
[2024-02-26 22:21] LABS: HIV (1&2) Antibody Rapid NONREACTIVE (NONREACTIVE)
[2024-02-26] MEDS: FUROSEMIDE 40 MG TABLET PO (22:52)
[2024-02-26 22:56] VITALS: BP 161/59; PULSE 65; RESP 22; TEMP 36.9; O2SAT 94
[2024-02-28 08:21] LABS: HCV Ab Non Reactive (Non Reactive)
== END 2024-02-26 23:03 | disposition home or self-care (01) ==
PROVIDERS: Emergency Provider Emergency Medicine; PCP Family Medicine
DX: I50.9 Heart failure, unspecified (principal); R06.02 Shortness of breath; R06.00 Dyspnea, unspecified
CPT/HCPCS: 71045; 80053; 83690; 83735; 83880; 84484; 85025; 85610; 85730; 86803; 87389; 93005; 99284

== ENCOUNTER 2024-02-29 12:22 | Outpatient (CLI) | payer MEDICARE, SELFPAY ==
[2024-02-29 13:10] LABS: Basophils # 0.1 K/mm3 (0-0.2); Basophils % 0.6 % (0.1-2.0); Eosinophils # 0.1 K/mm3 (0.0-0.4); Eosinophils % 1.4 % (0.1-12.0); Hematocrit 26.5 % (37.0-47.0); Hemoglobin 8.2 g/dL (12.2-16.2); Lymphocytes # 1.4 K/mm3 (0.7-4.5); Mean Corpuscular HGB Conc 30.9 g/dL (31.8-35.4); Mean Corpuscular Hemoglobin 26.8 pg (27.0-31.2); Mean Corpuscular Volume 86.6 fl (81-99); Mean Platelet Volume 8.8 fl (7.4-10.4); Monocytes # 0.4 K/mm3 (0.1-1.0); Monocytes % 4.8 % (1.7-9.3); Neutrophils # 6.7 K/mm3 (1.8-7.8); Neutrophils % 77.1 % (37.0-80.0); Platelet Count 437 K/mm3 (142-424); Red Blood Count 3.06 M/mm3 (4.20-5.40); Red Cell Distribution Width 15.8 % (11.5-17.5); White Blood Count 8.7 K/mm3 (4.8-10.8)
[2024-02-29 13:24] LABS: Anion Gap 13.4 mEq/L (5-15); Blood Urea Nitrogen 42 mg/dl (7-17); Calcium 9.3 mg/dl (8.4-10.2); Carbon Dioxide 29 mmol/L (22.0-30.0); Chloride 102 mmol/L (98-107); Estimated Glomerular Filt Rate 28 ml/min (>60); GFR (African American) 33 ML/MIN (>60); Glucose 93 mg/dl (74-100); Potassium 4.4 mmoL/L (3.5-5.1); Sodium 140 mmol/L (136-145)
[2024-02-29 13:33] LABS: NT Pro Brain Natriuretic Pep. 947 pg/mL (0-125)
[2024-02-29 14:18] LABS: Iron 73 ug/dL (37-170)
[2024-02-29 14:27] LABS: Total Iron Binding Capacity 490 ug/dL (265-497)
[2024-02-29 14:31] LABS: Folate > 20.00 ng/mL
[2024-02-29 14:54] LABS: Ferritin 101 ng/ml (11.1-264)
[2024-02-29 16:45] LABS: Albumin Level 3.8 g/dl (3.5-5.0)
[2024-02-29 16:48] LABS: Alanine Aminotransferase 18 U/L (12-78); Alkaline Phosphatase 46 U/L (38-126); Aspartate Amino Transferase 24 U/L (14-36); Bilirubin,Direct 0.3 mg/dl (0.0-0.4); Bilirubin,Indirect 0.2 mg/dL (0.0-0.9); Bilirubin,Total 0.5 mg/dl (0.2-1.3); Bilirubin,Unconjugated 0.2 mg/dL (0.0-1.1); Reticulocyte % (Auto) 2.6 % (0.9-3.2); Total Protein,Serum 6.3 g/dl (6.3-8.2)
[2024-02-29 17:08] LABS: Lactate Dehydrogenase 377 U/L (313-618)
[2024-03-01 05:11] LABS: Haptoglobin 469 mg/dL (42-346)
== END 2024-02-29 23:59 | disposition home or self-care (01) ==
PROVIDERS: PCP Family Medicine; Visit Provider Physician Assistant
DX: I10 Essential (primary) hypertension (principal); D64.9 Anemia, unspecified; E78.2 Mixed hyperlipidemia; I35.0 Nonrheumatic aortic (valve) stenosis; I11.9 Hypertensive heart disease without heart failure; I25.10 Atherosclerotic heart disease of native coronary artery without angina pectoris; I50.9 Heart failure, unspecified; D50.9 Iron deficiency anemia, unspecified
CPT/HCPCS: 36415; 80048; 80076; 82728; 82746; 83010; 83540; 83550; 83615; 83880; 85025; 85044; 86850

== ENCOUNTER 2024-03-01 08:47 | Outpatient (CLI) | payer MEDICARE, SELFPAY ==
[2024-03-01] VITALS (11 sets, daily range): BP systolic 110–143; BP diastolic 41–72; PULSE 64–80; RESP 18–19; TEMP 36–37.2; O2SAT 94–95
[2024-03-01] MEDS: SODIUM CHLORIDE 0.9% 250ML BAG 250 ML IV (09:27)
== END 2024-03-01 12:30 | disposition home or self-care (01) ==
LOC: INF 08:49
PROVIDERS: PCP Family Medicine; Visit Provider Physician Assistant
DX: D64.9 Anemia, unspecified (principal)
CPT/HCPCS: 36430; P9016

== ENCOUNTER 2024-03-07 09:32 | Outpatient (CLI) | payer MEDICARE, SELFPAY ==
[2024-03-07 09:48] LABS: Basophils # 0.1 K/mm3 (0-0.2); Basophils % 0.7 % (0.1-2.0); Eosinophils # 0.1 K/mm3 (0.0-0.4); Eosinophils % 1.6 % (0.1-12.0); Hematocrit 31.4 % (37.0-47.0); Hemoglobin 9.8 g/dL (12.2-16.2); Lymphocytes # 0.8 K/mm3 (0.7-4.5); Lymphocytes % 10.9 % (10-50); Mean Corpuscular HGB Conc 31.3 g/dL (31.8-35.4); Mean Corpuscular Hemoglobin 26.9 pg (27.0-31.2); Mean Corpuscular Volume 85.9 fl (81-99); Mean Platelet Volume 8.6 fl (7.4-10.4); Monocytes # 0.4 K/mm3 (0.1-1.0); Neutrophils # 5.8 K/mm3 (1.8-7.8); Neutrophils % 81.9 % (37.0-80.0); Platelet Count 333 K/mm3 (142-424); Red Blood Count 3.65 M/mm3 (4.20-5.40); Red Cell Distribution Width 15.6 % (11.5-17.5); White Blood Count 7.1 K/mm3 (4.8-10.8)
[2024-03-07 11:18] LABS: Vitamin B12 907 pg/mL (239-931)
[2024-03-09 13:09] LABS: Free Kappa Lt Chains 44.6 mg/L (3.3-19.4); Free Lambda Lt Chains 37.1 mg/L (5.7-26.3)
[2024-03-09 17:12] LABS: Albumin 3.2 g/dL (2.9-4.4); Alpha-1-Globulin 0.4 g/dL (0.0-0.4); Alpha-2-Globulin 1.4 g/dL (0.4-1.0); Gamma Globulin 0.7 g/dL (0.4-1.8); Protein, Total 6.9 g/dL (6.0-8.5)
[2024-03-12 14:09] LABS: Immunoglobulin A, Qn 317 mg/dL (64-422); Immunoglobulin G, Qn 731 mg/dL (586-1602); Immunoglobulin M, Qn 56 mg/dL (26-217)
[2024-03-14 08:24] LABS: PDF SCANNED IMAGE
== END 2024-03-07 23:59 | disposition home or self-care (01) ==
LOC: LAB 09:33
PROVIDERS: Physician Assistant; PCP Family Medicine; Visit Provider Internal Medicine Medical Oncology
DX: D50.9 Iron deficiency anemia, unspecified (principal); D64.9 Anemia, unspecified
CPT/HCPCS: 36415; 82607; 82784; 83883; 84155; 84165; 85025; 86334

== ENCOUNTER 2024-03-16 12:36 | Outpatient (CLI) | payer MEDICARE, SELFPAY ==
[2024-03-16 13:05] VITALS: BP 127/55; PULSE 68; RESP 16
[2024-03-16] MEDS: SODIUM CHLORIDE 0.9% 50ML BAG 50 ML IV (13:05)
[2024-03-16] MEDS: IRON SUCROSE COMPLEX 200 MG in 0.9 % SODIUM CHLORIDE 100 ML 220 MG IV (13:05)
[2024-03-16 13:40] VITALS: BP 142/50; PULSE 66; RESP 16
== END 2024-03-16 13:55 | disposition home or self-care (01) ==
LOC: INF 12:38
PROVIDERS: PCP Family Medicine; Visit Provider Internal Medicine Medical Oncology
DX: D50.9 Iron deficiency anemia, unspecified (principal)
CPT/HCPCS: 96365; J1756

== ENCOUNTER 2024-03-23 12:41 | Outpatient (CLI) | payer MEDICARE, SELFPAY ==
[2024-03-23] MEDS: IRON SUCROSE COMPLEX 200 MG in 0.9 % SODIUM CHLORIDE 100 ML 220 MG IV (13:02)
[2024-03-23 13:04] VITALS: BP 165/67; PULSE 83; RESP 18; TEMP 36.4; O2SAT 97
[2024-03-23] MEDS: SODIUM CHLORIDE 0.9% 50ML BAG 50 ML IV (13:06)
[2024-03-23] MEDS: SODIUM CHLORIDE 0.9% 10ML FLUSH SYRINGE 10 ML IV (13:07)
[2024-03-23 13:38] VITALS: BP 158/62; PULSE 81; RESP 18; O2SAT 97
== END 2024-03-23 13:48 | disposition home or self-care (01) ==
LOC: INF 12:42
PROVIDERS: PCP Family Medicine; Visit Provider Internal Medicine Medical Oncology
DX: D50.9 Iron deficiency anemia, unspecified (principal)
CPT/HCPCS: 96365; J1756

== ENCOUNTER 2024-03-30 12:48 | Outpatient (CLI) | payer MEDICARE, SELFPAY ==
[2024-03-30 13:07] VITALS: BP 150/43; PULSE 61; RESP 20; TEMP 36.6; O2SAT 96
[2024-03-30] MEDS: IRON SUCROSE COMPLEX 200 MG in 0.9 % SODIUM CHLORIDE 100 ML 220 MG IV (13:07)
[2024-03-30] MEDS: SODIUM CHLORIDE 0.9% 10ML FLUSH SYRINGE 10 ML IV (13:07)
[2024-03-30] MEDS: SODIUM CHLORIDE 0.9% 50ML BAG 50 ML IV (13:07)
[2024-03-30 13:50] VITALS: BP 147/44; PULSE 58; RESP 20; O2SAT 97
== END 2024-03-30 13:50 | disposition home or self-care (01) ==
LOC: INF 12:49
PROVIDERS: PCP Family Medicine; Visit Provider Internal Medicine Medical Oncology
DX: D50.9 Iron deficiency anemia, unspecified (principal)
CPT/HCPCS: 96365; J1756

== ENCOUNTER 2024-04-27 11:58 | Outpatient (CLI) | payer MEDICARE, SELFPAY ==
[2024-04-27 12:13] LABS: Microscopic, Urine URINE MICROSCOPIC (MICROSCOPIC)
[2024-04-27 12:32] LABS: Basophils % 0.7 % (0.1-2.0); Eosinophils # 0.1 K/mm3 (0.0-0.4); Eosinophils % 1.8 % (0.1-12.0); Hemoglobin 10.8 g/dL (12.2-16.2); Lymphocytes % 18.6 % (10-50); Mean Corpuscular HGB Conc 30.9 g/dL (31.8-35.4); Mean Corpuscular Hemoglobin 26.3 pg (27.0-31.2); Mean Corpuscular Volume 85.4 fl (81-99); Mean Platelet Volume 11.5 fl (7.4-10.4); Monocytes # 0.3 K/mm3 (0.1-1.0); Monocytes % 5.3 % (1.7-9.3); Neutrophils % 73.2 % (37.0-80.0); Platelet Count 214 K/mm3 (142-424); Red Cell Distribution Width 15.9 % (11.5-17.5); White Blood Count 5.5 K/mm3 (4.8-10.8)
[2024-04-27 12:46] LABS: Appearance,Urine CLEAR (Clear); Bilirubin,Urine Negative (Negative); Blood, Urine Negative (Negative); Color,Urine YELLOW (Yellow); Glucose,Urine (UA) 1+ (Negative); Ketones,Urine Negative (Negative); Leukocyte Esterase,Urine 1+ (Negative); Nitrate,Urine Negative (Negative); Protein,Urine Negative (Negative); Urobilinogen,Urine 0.2 EU/dl (0.2)
[2024-04-27 13:00] LABS: Creatinine,Urine Random 62 mg/dL (Not Estab.)
[2024-04-27 13:28] LABS: Alanine Aminotransferase 18 U/L (12-78); Albumin Level 4.2 g/dl (3.5-5.0); Albumin/Globulin Ratio 1.8 (1.1-1.8); Alkaline Phosphatase 51 U/L (38-126); Anion Gap 14.6 mEq/L (5-15); Aspartate Amino Transferase 25 U/L (14-36); Bilirubin,Total 0.2 mg/dl (0.2-1.3); Blood Urea Nitrogen 37 mg/dl (7-17); Calcium 10.1 mg/dl (8.4-10.2); Carbon Dioxide 29 mmol/L (22.0-30.0); Chloride 105 mmol/L (98-107); Estimated Glomerular Filt Rate 37 ml/min (>60); GFR (African American) 44 ML/MIN (>60); Globulin 2.4 g/dL (1.3-3.2); Glucose 115 mg/dl (74-100); Potassium 4.6 mmoL/L (3.5-5.1); Sodium 144 mmol/L (136-145); Total Protein,Serum 6.6 g/dl (6.3-8.2)
[2024-04-27 13:31] LABS: Albumin Level 4.3 g/dl (3.5-5.0); Anion Gap 15.6 mEq/L (5-15); Blood Urea Nitrogen 38 mg/dl (7-17); Calcium 10.1 mg/dl (8.4-10.2); Carbon Dioxide 29 mmol/L (22.0-30.0); Chloride 104 mmol/L (98-107); Estimated Glomerular Filt Rate 34 ml/min (>60); GFR (African American) 41 ML/MIN (>60); Glucose 114 mg/dl (74-100); Phosphorous 4.3 mg/dl (2.5-4.5); Potassium 4.6 mmoL/L (3.5-5.1); Sodium 144 mmol/L (136-145)
[2024-04-27 13:34] LABS: Bacteria,Urine Trace /lpf; WBC,Urine 20-50 #/hpf (0-3)
[2024-04-27 13:42] LABS: Intact Parathyroid Hormone 21.3 pg/mL (7.5-53.5)
[2024-04-27 13:47] LABS: 25-OH Vitamin D, Total 54.2 ng/mL (30-100)
[2024-04-27 14:17] LABS: Iron 80 ug/dL (37-170)
[2024-04-27 14:21] LABS: Vitamin B12 > 1000 pg/mL (239-931)
[2024-04-27 14:26] LABS: Total Iron Binding Capacity 399 ug/dL (265-497)
[2024-04-27 14:53] LABS: Ferritin 194 ng/ml (11.1-264)
== END 2024-04-27 23:59 | disposition home or self-care (01) ==
LOC: LAB 12:01
PROVIDERS: Internal Medicine Medical Oncology; PCP Family Medicine; Visit Provider Nurse Practitioner
DX: D50.9 Iron deficiency anemia, unspecified (principal); D64.9 Anemia, unspecified; N18.4 Chronic kidney disease, stage 4 (severe); E55.9 Vitamin D deficiency, unspecified; N39.0 Urinary tract infection, site not specified
CPT/HCPCS: 36415; 80053; 80069; 81001; 82306; 82570; 82607; 82728; 83540; 83550; 83970; 84156; 85025; 87086; 87088; 87186

== ENCOUNTER 2024-05-16 14:15 | Outpatient (CLI) | payer MEDICARE, SELFPAY ==
--- NOTE | 2024-05-16 14:19 | XR_ITS ---
FINAL REPORT TECHNIQUE: Bone densitometry calculations of the lumbar spine and left hip were obtained. CLINICAL HISTORY: SCREENING COMPARISON: 05/04/2021 FINDINGS: Using L1-4, the bone mineral density of the spine is 1.588 g/cm2, corresponding to T-score of 4.9. Using the left hip, the bone mineral density of the femoral neck is 0.961 g/cm2, corresponding to a T-score of 1.0. Using the right hip, the bone mineral density of the femoral neck is 0.907 g/cm?, corresponding to a T-score of 0.5. NOTE: T-score: Standard deviation compared with peak bone mass of young adult mean. *Following the recommendations of the International Society of Bone densitometry, classification of hip BMD is based on the lower of two T-scores; total hip or femoral neck. IMPRESSION: Normal bone mineral density of the lumbar spine and hip. Reviewed, Interpreted and Dictated by Yair Ribeiro MD Transcribed by Shweta Michel Authenticated and [facility]
--- NOTE | 2024-05-16 14:19 | MM_ITS ---
PROCEDURE INFORMATION: Exam: MG Bilateral Screening 3D Mammography Exam date and time: 05/16/2024 2:41 PM Age: 73 years old Clinical indication: Screening examination TECHNIQUE: Imaging protocol: Bilateral Screening tomosynthesis and 2D mammography including computer-aided detection (CAD) when performed. COMPARISON: 1. MG MM DIG SCREENING MAMM BI W/CAD 05/10/2023 10:46 AM 2. MG MM DIG SCREENING MAMM BI W/CAD 03/25/2022 1:05 PM FINDINGS: MAMMOGRAPHY: Breast composition: The breasts are heterogeneously dense, which may obscure small masses. Mass: None. Architectural distortion: None. Calcifications: No suspicious calcifications. Asymmetric density: None. Skin thickening: None. Axillary adenopathy: None. IMPRESSION: No mammographic evidence of malignancy. Annual screening is recommended unless otherwise clinically indicated. ASSESSMENT: BI-RADS Category 1: Negative.
== END 2024-05-16 23:59 | disposition home or self-care (01) ==
LOC: RAD 14:16
PROVIDERS: PCP Family Medicine; Visit Provider Family Medicine
DX: Z12.31 Encounter for screening mammogram for malignant neoplasm of breast (principal); Z78.0 Asymptomatic menopausal state
CPT/HCPCS: 77063; 77067; 77080

== ENCOUNTER 2024-08-01 06:02 | Day surgery (SDC) | payer MEDICARE, SELFPAY ==
[2024-07-30 14:30] VITALS: BMI 40.0
[2024-08-01] MEDS: LACTATED RINGERS 1000ML 1,000 ML 50 ML IV (06:20)
[2024-08-01 06:22] VITALS: BP 186/75; PULSE 59; RESP 18; TEMP 36.4; O2SAT 95
[2024-08-01 06:38] LABS: POC Glucose,Bedside 135 (70-110)
--- NOTE | 2024-08-01 07:11 | P.HP_ITS ---
History of Present Illness *Admission Date: 08/01/24 *Reason for visit:: Iron deficiency anemia and GERD *History of present illness: Mrs. Sousa is a 73-year-old female who is here for diagnostic upper endoscopy. The patient has had iron deficiency anemia and GERD. She is on both Eliquis and Plavix. The examination is deemed medically necessary for diagnostic EGD. The patient has been seen, interviewed and examined prior to the procedure by both myself and the anesthesia provider. [facility] Disclaimer: The information contained in this section may have been updated after the pat ient was seen, as this information can be updated by other users. Medical History (Updated 08/01/24 @ 07:13 by David Carreno II, MD) Callus of foot Anemia PAF (paroxysmal atrial fibrillation) History of left heart catheterization Abnormal findings on diagnostic imaging of heart and coronary circulation Angina pectoris Atypical chest pain History of COVID-19 Allergies History of anemia SOB (shortness of breath) on exertion Hypertension Colon polyp Positive colorectal cancer screening using Cologuard test GERD (gastroesophageal reflux disease) Epistaxis Aortic stenosis Pincer nail deformity Atrial fibrillation with RVR Edema of lower extremity Lymphedema of left lower extremity Acquired hammer toes of both feet Acquired hallux valgus of right foot Onychodystrophy Onychogryphosis Keratosis Diabetic foot Dyspnea Murmur, heart HHD (hypertensive heart disease) CAD (coronary artery disease) Malignant essential hypertension DM2 (diabetes mellitus, type 2) Typical angina Abnormal result of cardiovascular function study UTI (urinary tract infection) Surgical History History of colonoscopy History of coronary artery stent placement Family History Other Diabetes Family history of heart disease Family history of hypertension Social History Smoking Status: Former smoker alcohol intake: never substance use type: denies use current occupational status: retired Travel in the last 8 weeks: None household members: spouse housing: house caffeine: No Have you lived/traveled outside US in past 30 days?: No Contact w/someone who lives/traveled outside US past 30 days?: No Exposure to someone with infectious disease in past 14 days?: No Do you have a fever (greater than 100.4 F or 38 C)?: No Have you tested positive for COVID-19: No Exposed to someone with COVID-19 in past 14 days?: No Do you have a sore throat?: No Do you have a cough?: No Do you have any weakness?: No Do you have any diarrhea?: No Are you experiencing any unusual bleeding?: No Do you have any muscle aches/pain?: No Do you have any abdominal pain?: No Are you experiencing loss of taste or smell?: No Other Medical History Have you received the Flu Vaccine for this season: No Have you received the Pneumonia Vaccine: Yes Review of Systems Review of Systems Review of systems (narrative): Negative *Cardiovascular Comments: Negative *Gastrointestinal Comments: Negative *Genitourinary Comments: Negative *Musculoskeletal Comments: Negative *Neurologic Comments: Negative Meds Home Medications and Allergies Home Medications ?Medication ?Instructions ?Recorded ?Confirmed ?Type fenofibric acid (choline) 135 mg 135 mg PO DAILY Cholesterol 01/13/18 07/30/24 History capsule,delayed release (Trilipix) ferrous sulfate 325 mg (65 mg 325 mg PO DAILY Supplement 01/13/18 07/30/24 History iron) tablet multivitamin 1 each PO DAILY Supplement 01/13/18 07/30/24 History sitagliptin phosphate 100 mg 100 mg PO DAILY Diabetes 01/13/18 07/30/24 History tablet (Januvia) glimepiride 4 mg tablet 4 mg PO DAILY Diabetes 05/08/19 07/30/24 History cyanocobalamin (vitamin B-12) 1,000 mcg PO DAILY Supplement 08/08/19 07/30/24 History 1,000 mcg capsule famotidine 40 mg tablet 40 mg PO HS Acid Reflux 05/07/20 07/30/24 History gabapentin 600 mg tablet 600 mg PO BID Pain 08/07/21 07/30/24 History ascorbic acid (vitamin C) 500 mg 500 mg PO DAILY . 02/05/22 07/30/24 History capsule cholecalciferol (vitamin D3) 25 25 mcg PO DAILY Supplement 02/05/22 07/30/24 History mcg (1,000 unit) capsule zinc acetate 25 mg (zinc) capsule 25 mg PO DAILY Supplement 02/05/22 07/30/24 History (Galzin) dapagliflozin propanediol 10 mg 5 mg PO DAILY 02/03/23 07/30/24 History tablet (Farxiga) insulin glargine 100 unit/mL (3 20 unit SQ DAILY Diabetes 05/30/23 07/30/24 History mL) subcutaneous pen (Lantus Solostar U-100 Insulin) valsartan 320 1 tab PO DAILY High Blood Pressure 05/30/23 07/30/24 History mg-hydrochlorothiazide 25 mg tablet pen needle, diabetic 32 gauge x #100 ea 12/29/23 07/30/24 History 06/24 (Comfort EZ Pen [place]) metoprolol succinate 100 mg 100 mg PO BID High Blood Pressure 02/22/24 07/30/24 Rx tablet,extended release 24 hr 90 days #180 tabs (Toprol XL) apixaban 2.5 mg tablet (Eliquis) 2.5 mg PO BID #60 tabs 03/22/24 07/30/24 Rx spironolactone 50 mg tablet See Rx Instructions .Route 04/30/24 07/30/24 Rx .COMPLEX #90 tabs rosuvastatin 20 mg tablet 20 mg PO DAILY 05/08/24 07/30/24 History acetaminophen 650 mg 650 mg PO Q12H 06/04/24 07/30/24 History tablet,extended release (Tylenol Arthritis Pain) clopidogrel 75 mg tablet See Rx Instructions .Route 06/25/24 07/30/24 Rx .COMPLEX #90 tabs amlodipine 10 mg tablet (Norvasc) 10 mg PO DAILY #30 tabs 07/19/24 07/30/24 Rx garlic 1,000 mg capsule 1,000 mg PO DAILY 07/30/24 07/30/24 History omega-3 fatty acids-vitamin E 1,000 cap PO BID 07/30/24 07/30/24 History 1,000 mg capsule New Prescriptions to Start Prescriptions: Allergies Allergy/AdvReac Type Severity Reaction Status Date / Time Sulfa (Sulfonamide Allergy Other Verified 08/01/24 06:21 Antibiotics) Exam Data for Last 24 hours Vital signs and Labs for Last 24 Hours: Temp Pulse Resp BP Pulse Ox O2 Del Method 97.5 F L 59 L 18 186/75 H 95 Room Air 08/01/24 06:22 08/01/24 06:22 08/01/24 06:22 08/01/24 06:22 08/01/24 06:22 08/01/24 06:22 Laboratory Results - last 24 hr 08/01/24 06:30: POC Glucose 135 H I & O for Last 24 hours: Intake & Output 07/29/24 07/30/24 07/31/24 08/01/24 23:59 23:59 23:59 23:59 Weight 205 lb *Routine HEENT Exam Head: Present normocephalic Eye: Present EOMI and PERRL ENT: Present mucous membranes moist *Routine Neck Exam Neck: Present supple *Routine Respiratory Exam Respiratory: Present CTA bilaterally *Routine Cardiovascular Exam Cardiovascular: Present RRR *Routine Abdominal Exam Abdominal: Present soft and normoactive bowel sounds; Absent tenderness *Routine Rectal Exam Rectal:: deferred *Routine Genitalia Exam Genitalia:: deferred *Routine Extremities Exam Extremities: Absent cyanosis, clubbing or edema *Routine Skin Exam Skin: Present warm; Absent rash *Routine Neurological Exam Neurological: Present alert and oriented X3 Assessment and Plan *Assessment and plan (1) Iron deficiency anemia due to chronic blood loss: Status: Acute Category: Medical Code(s): D50.0 - Iron deficiency anemia secondary to blood loss (chronic) (2) GERD (gastroesophageal reflux disease): Status: Acute Category: Medical Code(s): K21.9 - Gastro-esophageal reflux disease without esophagitis Plan A/P: 1. Iron deficiency anemia and GERD is the preprocedural diagnosis. The patient will be anesthetized/sedated using MAC sedation. The patient has been seen and examined. Cardiac and lung assessment prior to the examination is stable. Proceed with planned diagnostic upper endoscopy.
--- NOTE | 2024-08-01 07:12 | EXP.ANES.CKL ---
[facility] Disclaimer: The information contained in this section may have been updated after the patient was seen, as this information can be updated by other users. Medical History (Updated 08/01/24 @ 07:13 by David Carreno II, MD) Callus of foot Anemia PAF (paroxysmal atrial fibrillation) History of left heart catheterization Abnormal findings on diagnostic imaging of heart and coronary circulation Angina pectoris Atypical chest pain History of COVID-19 Allergies History of anemia SOB (shortness of breath) on exertion Hypertension Colon polyp Positive colorectal cancer screening using Cologuard test GERD (gastroesophageal reflux disease) Epistaxis Aortic stenosis Pincer nail deformity Atrial fibrillation with RVR Edema of lower extremity Lymphedema of left lower extremity Acquired hammer toes of both feet Acquired hallux valgus of right foot Onychodystrophy Onychogryphosis Keratosis Diabetic foot Dyspnea Murmur, heart HHD (hypertensive heart disease) CAD (coronary artery disease) Malignant essential hypertension DM2 (diabetes mellitus, type 2) Typical angina Abnormal result of cardiovascular function study UTI (urinary tract infection) Surgical History History of colonoscopy History of coronary artery stent placement Family History Other Diabetes Family history of heart disease Family history of hypertension Social History Smoking Status: Former smoker alcohol intake: never substance use type: denies use current occupational status: retired Travel in the last 8 weeks: None household members: spouse housing: house caffeine: No Have you lived/traveled outside US in past 30 days?: No Contact w/someone who lives/traveled outside US past 30 days?: No Exposure to someone with infectious disease in past 14 days?: No Do you have a fever (greater than 100.4 F or 38 C)?: No Have you tested positive for COVID-19: No Exposed to someone with COVID-19 in past 14 days?: No Do you have a sore throat?: No Do you have a cough?: No Do you have any weakness?: No Do you have any diarrhea?: No Are you experiencing any unusual bleeding?: No Do you have any muscle aches/pain?: No Do you have any abdominal pain?: No Are you experiencing loss of taste or smell?: No [facility] Anesthesia Checklist Patient Identification Patient Identification: Arm Band Structural Data Admitted From: Home Planned Operative Procedure/s: EGD Consent for Planned Operative Procedure(s) Verified: Yes Verified Documents: Surgical Consent and History and Physical NPO Status Verified Time NPO: 00:00 Additional verifications Anesthesia Reactions: No Hx Blood Transfusions: No Blood Transfusion Reaction: No Airway Assessment Mallampati Score:: Class II C-Spine Mobility Assessed: Yes TMJ Mobility Assessed: Yes Dentition: Good Dentition Neurological Assessment Level of Consciousness: Awake, Alert and Appropriate Anesthesia Plan Anesthesia Risk discussed: Yes Anesthesia Plan: Verified ASA Class: III Anesthesia Type: MAC
[2024-08-01 07:20] VITALS: O2SAT 98
--- NOTE | 2024-08-01 07:21 | P.PCN_ITS ---
[facility] Procedure Note Date: 08/01/24 Time: 07:34 Procedure Note:: Upper Endoscopy Procedure Report: Esophagogastroduodenoscopy with cold biopsies and TTS balloon dilation Endoscopost: David Carreno II, MD Referring Physician: Yaya Blakely MD Date of Procedure: August 01, 2024 Equipment: Olympus GIF 190 standard upper endoscope Sedation: MAC sedation Indications: Mrs. Sousa is a 73-year-old female with iron deficiency anemia who is here for diagnostic upper endoscopy. The patient also has had chronic GERD. This is improved since starting famotidine. Since starting famotidine, she has had some increased belching. She reports no abdominal pain but does have some bloating. She also reports occasional dysphagia and frequent choking. She has been on both Plavix and Eliquis because of her atrial fibrillation. She did have a positive Cologuard and had a colonoscopy in January 2024 and had a diminutive hyperplastic polyp removed. She had extensive left-sided diverticulosis. She reports no melena or hematochezia. She does have chronic anemia and has been on iron long-term. She is followed by hematology (Dr. Cordell Madison). Her hemoglobin was 7.9 in 03/04 but has improved to 10.8 in April 2024. Procedure: Prior to the procedure, a history and physical exam was performed, and patient's medications and allergies were reviewed. The risks, benefits and alternatives of the sedation and procedure were discussed with the patient. All questions were answered and informed consent was obtained. The patient was brought to the procedure room. Patient identification and proposed procedure were verified by the physician and the nurse. The patient was placed in a left lateral decubitus position and the scope was passed under direct vision. Throughout the procedure, the patient's blood pressure, pulse, and oxygen saturations were monitored continuously. The upper GI endoscopy was accomplished without difficulty. The patient tolerated the procedure well. Findings: The scope was passed directly into the upper esophagus and advanced to the third portion of the duodenum. The post bulbar duodenum, ampulla and duodenal bulb were normal with normal mucosa and conniventes. Biopsies were taken from the first portion of duodenum and bulb to rule out celiac disease. The scope was withdrawn through a normal duodenal bulb and pylorus into the stomach. There was linear reactive gastropathy of the antrum. The body and fundus of the stomach were normal. Upon retroflexion there was no hiatal hernia. Biopsies were taken from the antrum to rule out H. pylori. The scope was then withdrawn into the esophagus. There was no evidence of reflux esophagitis or Cadena's. There was no Schatzki's ring. There were tertiary contractions and evidence of mild esophageal dysmotility. The entire esophagus was dilated to 60 [place]/20 mm with a TTS hydrostatic balloon. There was minimal resistance. The remainder of the esophageal mucosa was normal. Impression: 1. Nonerosive GERD with mild to moderate esophageal dysmotility 2. Mild to moderate linear reactive antral gastropathy Plan: I will follow-up the biopsies. There was no clear source for any chronic GI blood loss. I do feel that her iron deficiency is likely related to her anticoagulation. Long-term exposure to certain medications especially blood thinners (oral anticoagulants?i.e. Plavix, Eliquis, Xarelto, etc.) is an associated independent risk factor for the development of iron deficiency anemia. Other medications associated with iron deficiency anemia include acid reflux medications (proton pump inhibitors?omeprazole, pantoprazole, etc.) which are also associated with iron deficiency and play a role with reduced iron absorption. The Watchman Left Atrial Appendage Closure provides a new option for patients with non-valvular atrial fibrillation who may require an alternative to long- term use of blood thinners. This is especially important in persons that have chronic gastrointestinal blood loss with resulting iron deficiency anemia that is greatly exacerbated by the use of blood thinners (anticoagulation).
[2024-08-01 07:39] VITALS: BP 119/62; PULSE 55; RESP 16; TEMP 36.6; O2SAT 93
[2024-08-01 07:49] VITALS: BP 114/55; PULSE 53; RESP 16; O2SAT 92
[2024-08-01 07:59] VITALS: BP 137/78; PULSE 58; RESP 16; O2SAT 94
[2024-08-01 08:09] VITALS: BP 137/95; PULSE 53; RESP 16; O2SAT 95
== END 2024-08-01 08:14 | disposition home or self-care (01) ==
PROVIDERS: PCP Family Medicine; Visit Provider Internal Medicine Gastroenterology
PROC: 0DJ08ZZ Inspection of Upper Intestinal Tract, Via Natural or Artificial Opening Endoscopic (ICD-10-PCS; CPT 43239; principal; 2024-08-01 07:30)
DX: K31.9 Disease of stomach and duodenum, unspecified (principal); K22.4 Dyskinesia of esophagus; D50.0 Iron deficiency anemia secondary to blood loss (chronic); K21.9 Gastro-esophageal reflux disease without esophagitis; R13.10 Dysphagia, unspecified; E11.9 Type 2 diabetes mellitus without complications
CPT/HCPCS: 43239; 43249; 82962; C1726; J7120

== ENCOUNTER 2024-08-06 09:21 | Outpatient (CLI) | payer MEDICARE, SELFPAY ==
--- NOTE | 2024-08-06 09:30 | CA_ITS ---
APPROVED REPORT EXAM: Comprehensive 2D, Doppler, and color-flow Echocardiogram Nuclear Equipment Research Engineer: Dione Osullivan RVT Ht: 5 ft 0 in Wt: 209lbs BSA: 1.90 BP: 158/49 mmHg Indications: CAD,A-FIB,MILD ,HTN,HLD,DM 2D Dimensions LA Volume 50.10 mL LA Volume Index 26.37 mL/m2 (M/F) 16-34 M-Mode Dimensions RVDd 2.82 cm (0.9-2.6) LA Diam 4.40 cm (1.9-4.0) LVDd 3.62 cm (3.5-5.7) LVDs 1.89 cm (3.5-5.7) IVSd 1.37 cm (0.6-1.1) PWd 0.56 cm (0.6-1.1) EF (Teich) 80.10% FS 47.80% EDV (Teich) 55.20 mL TAPSE 2.02 (<1.7) ESV (Teich) 11.00 mL LV Diastology E Decel Time 320 (160-240 msec) E/A Ratio 0.7 Aortic Valve MELVIN Index 0.91 cm2/m2 AoV Peak Juancarlos. 260.0 (50-130 cm/s) AO Peak GR. 27.10 mmHg AO Mean GR. 15.40 (<5 mmHg) AO VTI 60.7 (18-25 cm) MELVIN (VTI) 1.78 (2.5-4.5 cm2) Mitral Valve MV E Max Juancarlos. 115.0 (40-130 cm/s) MV A Velocity 160.0 (40-130 cm/s) E/A Ratio 0.72 MV Mean Gr. 4.80 (<2mmHg) MV PHT 94.0 ms Pulmonary Valve PV Peak Velocity 101.0 (50-150 cm/s) Left Ventricle The left ventricle is normal size. The left ventricular systolic function is normal. The left ventricular ejection fraction is within the normal range. There is increased overall thickness. There is normal LV segmental wall motion. Diastolic function is indeterminate. LVEF is 55%. Right Ventricle The right ventricle is not well-visualized, but grossly appears normal in size and function. Atria The left atrium is mildly dilated. Right atrium is mildly dilated. There is no Doppler evidence of interatrial shunt. Aortic Valve The aortic valve is mildly thickened. Mild aortic stenosis is present. MELVIN by continuity equation is 1.8 cm2. Peak velocity 2.6 m/s. Mean AV gradient 17 mmHg. Max AV gradient 27 mmHg. Trace aortic regurgitation. Mitral Valve Mitral annular calcification is present. The mitral valve leaflets are mildly thickened. Trace mitral regurgitation. Tricuspid Valve Tricuspid valve is grossly normal in structure and function. Trace tricuspid regurgitation. Pulmonic Valve The pulmonary valve is normal in structure. Trace pulmonic regurgitation. Great Vessels The aortic root is normal in size. IVC is normal in size and collapses >50% with inspiration. Pericardium There is no pericardial effusion. Other Information Study Quality: Fair Conclusion Normal biventricular systolic function. Biatrial dilation. Mild (MELVIN by continuity equation is 1.8 cm2. Peak velocity 2.6 m/s. Mean AV gradient 17 mmHg. Max AV gradient 27 mmHg). Electronically signed by : Edilma Robertson MD 08/12/2024 15:04:04
== END 2024-08-06 23:59 | disposition home or self-care (01) ==
LOC: RT 09:22
PROVIDERS: PCP Family Medicine; Visit Provider Internal Medicine
DX: I35.0 Nonrheumatic aortic (valve) stenosis (principal)
CPT/HCPCS: 93306

== ENCOUNTER 2024-08-30 09:29 | Outpatient (CLI) | payer MEDICARE, SELFPAY ==
[2024-08-30 10:00] LABS: Basophils % 0.8 % (0.1-2.0); Eosinophils # 0.1 Kmm3 (0.0-0.4); Eosinophils % 2.5 % (0.1-12.0); Hematocrit 35.9 % (37.0-47.0); Immature Granulocytes # 0.02 10^3uL; Immature Granulocytes % 0.4 %; Lymphocytes # 1.2 K/mm3 (0.7-4.5); Lymphocytes % 22.2 % (10-50); Mean Corpuscular HGB Conc 30.6 g/dL (31.8-35.4); Mean Corpuscular Hemoglobin 27.8 pg (27.0-31.2); Mean Corpuscular Volume 90.7 fl (81-99); Mean Platelet Volume 11.9 fl (7.4-10.4); Monocytes # 0.3 K/mm3 (0.1-1.0); Monocytes % 6.6 % (1.7-9.3); Neutrophils # 3.5 K/mm3 (1.8-7.8); Neutrophils % 67.5 % (37.0-80.0); Nucleated Red Blood Cells # 0 10^3/uL; Nucleated Red Blood Cells % 0 %; Platelet Count 193 K/mm3 (142-424); Red Blood Count 3.96 M/mm3 (4.20-5.40); Red Cell Distribution Width 13.2 % (11.5-17.5); Red Cell Distribution Width-SD 42.9 fL; White Blood Count 5.2 K/mm3 (4.8-10.8)
[2024-08-30 10:20] LABS: Iron 75 ug/dL (37-170)
[2024-08-30 10:23] LABS: Alanine Aminotransferase 20 U/L (12-78); Albumin Level 4.5 g/dl (3.5-5.0); Alkaline Phosphatase 49 U/L (38-126); Anion Gap 11.5 mEq/L (5-15); Aspartate Amino Transferase 23 U/L (14-36); Bilirubin,Direct 0.1 mg/dl (0.0-0.4); Bilirubin,Indirect 0.2 mg/dL (0.0-0.9); Bilirubin,Total 0.3 mg/dl (0.2-1.3); Bilirubin,Unconjugated 0.2 mg/dL (0.0-1.1); Blood Urea Nitrogen 43 mg/dl (7-17); Calcium 10.1 mg/dl (8.4-10.2); Carbon Dioxide 30 mmol/L (22.0-30.0); Chloride 104 mmol/L (98-107); Chol/HDL Ratio 3.4 (1-3.5); Cholesterol 143 mg/dl (140-200); Estimated Glomerular Filt Rate 40 ml/min (>60); GFR (African American) 48 ML/MIN (>60); Glucose 203 mg/dl (74-100); HDL Cholesterol 42 mg/dl (40-60); Magnesium 1.5 mg/dl (1.6-2.3); Potassium 4.5 mmoL/L (3.5-5.1); Sodium 141 mmol/L (136-145); Total Protein,Serum 6.7 g/dl (6.3-8.2); Triglycerides 389 mg/dl (30-150); VLDL Cholesterol 78 mg/dL (0-40)
[2024-08-30 10:29] LABS: Total Iron Binding Capacity 388 ug/dL (265-497)
[2024-08-30 10:34] LABS: Direct LDL Cholesterol 58.26 mg/dL (100-129)
[2024-08-30 10:37] LABS: Free T4 (Free Thyroxine) 0.96 ng/dl (0.78-2.19)
[2024-08-30 10:46] LABS: Hemoglobin A1C 7.1 % (4.0-6.0)
[2024-08-30 10:51] LABS: Thyroid Stimulating Hormone 1.58 uIU/mL (0.465-4.68)
[2024-08-30 10:55] LABS: Ferritin 145 ng/ml (11.1-264)
== END 2024-08-30 23:59 | disposition home or self-care (01) ==
LOC: LAB 09:30
PROVIDERS: Internal Medicine Medical Oncology; PCP Family Medicine; Visit Provider Physician Assistant
DX: E11.9 Type 2 diabetes mellitus without complications (principal); D50.8 Other iron deficiency anemias; E78.2 Mixed hyperlipidemia; I11.9 Hypertensive heart disease without heart failure; I25.10 Atherosclerotic heart disease of native coronary artery without angina pectoris; E78.5 Hyperlipidemia, unspecified
CPT/HCPCS: 80048; 80061; 80076; 82728; 83036; 83540; 83550; 83735; 84439; 84443; 85025

== ENCOUNTER 2024-11-12 08:58 | Outpatient (CLI) | payer MEDICARE, SELFPAY ==
--- OUTSIDE RECORDS SUMMARY | 2024-05-03 05:30 | XMS_ITS ---
Author Organization [facility] Address [address] [facility] [address] [place] [id number] Care Team Providers Care Bat Lathe Operator Name Role Phone Parrish Blakely Primary Care Provider [phone] Allergies Allergen (clinical drug ingredient) Drug/Non Drug Allergy documented on EMR Reaction Allergy Type Onset Date Status empagliflozin Jardiance yeast infection Drug Allergy Active angiotensin-converti ng enzyme inhibitor (FN) TIFFANY Inhibitors cough Drug Allergy Active Substance with sulfonamide structure and antibacterial mechanism of action (substance) Sulfa Antibiotics itching Drug Allergy Active Results Component Value Reference Range Notes CBC Venipuncture (in house) Reviewed date:05/08/2024 09:02:51 AM Interpretation:hgb 10.9, hct 33.8 Performing Lab: Notes/Report: hgb 10.9, hct 33.8 wbc 6.1 3.5 - 10 lymph 15.4 15 - 50 mid 4.6 2 - 15 gran 80.0 35 - 80 rbc 4.09 3.5 - 5.5 hgb 10.9 11.5 - 16.5 hct 33.8 35 - 55 mcv 82.7 75 - 100 mch 26.8 25 - 35 mchc 32.4 31 - 38 platlet 209 100 - 400 Glycohemoglobin A1c (in hous e) Reviewed date:05/08/2024 09:02:51 AM Interpretation:7.2% Performing Lab: Notes/Report: 7.2% glycohemoglobin 7.2% 5 - 6.5 % P-Comprehensive Metabolic Pa suresh (CMP) Reviewed date:05/08/2024 09:02:51 AM Interpretation:gluc 130, bun 37, Cr 1.32, gfr 42 Performing Lab: Notes/Report: Test performed by Mayomi [address] [place] [address] , [address], [place] [address] Khadar Mckay MD, [employer] CLIA: [id number] Sodium 143 135-145 mmol/L Potassium 4.8 3.5-5.3 mmol/L Chloride 105 97-108 mmol/L CO2 26 22-32 mmol/L Glucose 130 65-99 mg/dL BUN 37 8-23 mg/dL Creatinine 1.32 0.50-1.00 mg/dL Calcium 10.1 8.6-10.4 mg/dL eGFR by Creatinine 42 >59 mL/min/1.73m2 Protein 6.8 6.0-8.3 g/dL Albumin 4.1 3.5-5.3 g/dL Alkaline Phosphatase 46 35-121 IU/L ALT (SGPT) 10 <5-47 IU/L AST (SGOT) 12 <5-40 IU/L Bilirubin, Total 0.3 <0.2-1.2 mg/dL A/G Ratio 1.5 1.1-2.5 P-Lipid Panel Reviewed date:05/08/2024 09:02:51 AM Interpretation:trigs 212 Performing Lab: Notes/Report: Test performed by Mayomi [address] [place] [address] , [address], [place] [address] Khadar Mckay MD, [employer] CLIA: [id number] Cholesterol 140 <200 mg/dL Triglycerides 212 <150 mg/dL HDL Cholesterol 42 >39 mg/dL Cholesterol / HDL Ratio 3.33 0.00-4.44 Ratio Non-HDL Cholesterol 98 <130 mg/dL LDL Cholesterol (Calculation) 56 <130 mg/dL LDL Cholesterol Levels* Less than 100 mg/dL Optimal 100 to 129 mg/dL Near Optimal/ Above Optimal 130 to 159 mg/dL Borderline High 160 to 189 mg/dL High 190 mg/dL and above Very High * Categories as recommended by the 2004 ATPIII guidelines LDL/HDL Ratio 1.3 <3.3 Ratio LDL Cholesterol Patient History Test Date: 04/28/2023 LDL Results: 47 Units: mg/dL % Change: - ------- Test Date: 11/03/2023 LDL Results: 47 Units: mg/dL % Change: 0% ------- Test Date: 05/03/2024 LDL Results: 56 Units: mg/dL % Change: +19% P-Microalbumin/Creatinine, R andom Urine Sample Reviewed date:05/08/2024 09:02:51 AM Interpretation:a/c 40 Performing Lab: Notes/Report: Test performed by HALKAR, [address] , [address], [place] [address] Khadar Mckay MD, [employer] CLIA: [id number] Albumin/Creatinine Ratio, Urine 40 0-30 ug/mg Microalbumin, Urine, Random 2.9 Creatinine, Urine 72.2 Bone density Reviewed date:05/17/2024 02:49:04 PM Interpretation:Normal Performing Lab: Notes/Report: Normal Mammogram Reviewed date:05/21/2024 02:55:55 PM Interpretation:Negative, annual f/u Performing Lab: Notes/Report: Negative, annual f/u result Negative, annual f/u REASON FOR VISIT 6 months, Diabetic foot exam and Annual Wellness visit, Due for Diabetic Eye Exam Medications Medication SIG (Take, Route, Frequency, Duration) Notes Start Date End Date Status Meclizine HCl 12.5 MG 1 or 2 tab(s) oral ly 3 times a day as needed 10/16/2012 Active Spironolactone 50 MG 1 tab(s) Orally onc e a day Active Metoprolol Succinate ER 100 MG 1 1/2 tab(s) Orally once a day at bedtime Active Ferrous Sulfate 325 (65 Fe) MG 1 tab(s) orally once a day; Duration: 30 day(s) 10/11/2013 Active Fish Oil 1000MG 3 TAB(S) P.O. ONCE A DAY Active Amoxicillin 875 MG 1 tablet Orally Twic e a day 05/03/2024 Active Eliquis 2.5 MG 1 tab(s) Orally Two times a day Active Diclofenac Sodium 1 % as directed applie d topically 4 times a day 04/29/2022 Active Zetia 10 MG 1 tab(s) orally once a day; Duration: 30 day(s) Active Fenofibric Acid 135 MG take 1 capsule by mouth once daily Active Glimepiride 4 mg TAKE 1 TABLET 1 TIME EACH DAY; Duration: 90 Active Valsartan-hydroCHLOROthiazi de 320-25 MG TAKE 1 TABLET 1 TIME EACH DAY; Duration: 90 Active Lantus SoloStar 100 UNIT/ML 54 units Sub cutaneous once daily Active Fenofibric Acid 135 MG TAKE 1 CAPSULE BY MOUTH ONCE DAILY; Duration: 90 Active Clopidogrel Bisulfate 75 MG 1 tab(s) ora lly once a day Active Januvia 100 MG 1 tablet Orally Once a day; Duration: 90 days Active Gabapentin 600 MG 1 cap(s) orally twic e a day 11/16/2023 Active Farxiga 10 MG 1 tab(s) Orally once a day; Duration: 90 days Active Famotidine 40 MG 1 tab(s) orally once a day (at bedtime) Active Lopressor 100 MG 1 tab(s) orally daily Active amLODIPine Besylate 5 MG 1 tab(s) Orally once a day Active Rosuvastatin Calcium 20 MG 1 tab(s) oral ly once a day Active Problems Problem Type SNOMED Code ICD Code Onset Dates Problem Status W/U Status Risk Notes Problem Diabetes mellitu s with hyperglycemia (E11.65) Active confirmed Problem Obese class II ([id number] [id number]) BMI 39.0-39.9,adult (Z68.39) Active confirmed Vital Signs Blood pressure systolic 128 mm Hg 05/03/19 25 Blood pressure diastolic 64 mm Hg 025 Heart Rate 60 /min 05/03/2024 Height 60 in 05/03/2024 Weight 204.6 lbs 05/03/2024 BMI 39.95 kg/m2 05/03/2024 Encounters Encounter Location Date Provider Diagnosis [facility] [address] [id number] 05/03/2024 Parrish Blakely Adult general medica l examination Z00.00 ; Acute sinusitis J01.90 ; 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.59 ; Diabetes mellitus with hyperglycemia E11.65 ; Paroxysmal atrial fibrillation I48.0 ; Dyslipidemia E78.5 ; Essential hypertension I10 ; Screening for breast cancer Z12.39 ; Postmenopause Z78.0 ; JACQUELYN (obstructive sleep apnea) G47.33 ; Gastroesophageal reflux disease without esophagitis K21.9 and BMI 39.0-39.9,adult Z68.39 Assessments Encounter Date Diagnosis (ICD Code) Assessment Notes Treatment Notes Treatment Clinical Notes Section Notes 05/03/2024 Adult general medical examination (ICD-10 - Z00.00) Patient instructed to return to office Annually for Annual Wellness Visits to include annual screenings of Pain assessment, Functional Ability assessment, Cognitive Ability assessment, Fall Risk assessment, Depression screening and Bladder control screening. 05/03/2024 Acute sinusitis (ICD-10 - J01.90) 05/03/2024 Type 2 diabetes mellitus with other circulatory complication (ICD-10 - E11.59) 05/03/2024 Diabetes mellitus with hyperglycemia (ICD-10 - E11.65) 05/03/2024 Paroxysmal atrial fibrillation (ICD-10 - I48.0) 05/03/2024 Dyslipidemia (ICD-10 - E78.5) 05/03/2024 Essential hypertension (ICD-10 - I10) 05/03/2024 Screening for breast cancer (ICD-10 - Z12.39) 05/03/2024 Postmenopause (ICD-10 - Z78.0) 05/03/2024 JACQUELYN (obstructive sleep apnea) (ICD-10 - G47.33) 05/03/2024 Gastroesophageal reflux disease without esophagitis (ICD-10 - K21.9) 05/03/2024 BMI 39.0-39.9,adult (ICD-10 - Z68.39) Plan Of Treatment Medication Medication Name Sig Start Date Stop Date Notes Amoxicillin 875 MG 1 tablet Orally Twice a day 05/03/2024 Fenofibric Acid 135 MG take 1 capsule by mouth once daily Treatment Notes Assessment Notes Adult general medical examination Patien t instructed to return to office Annually for Annual Wellness Visits to include annual screenings of Pain assessment, Functional Ability assessment, Cognitive Ability assessment, Fall Risk assessment, Depression screening and Bladder control screening. Next Appt Details Follow Up: 6 Months, Reason: Provider Name:Parrish Moses, 05/14/2025 09:00:00 AM, [address] [facility] [address] [facility], [address], [place], [place], [id number], Progress Notes * PARMINDER SOUSAOB:1950 (74 yo F)Acc No.[id number]:05/03/2024 Annual Wellness Visit Patient: Martin ELLENJIAN ZHAO Provider: Parrish Blakely M.D. :1950 A ge:73 Y S ex:Female Date:05/03/2024 Address:[address], [facility] [place], [id number] Subjective: * Chief Complaints: * 1 . 6 months, Diabetic foot exam and Annual Wellness visit. 2. Due for Diabetic Eye Exam. * HPI: H PI: Patient is here today for a scheduled 6 month checkup, a diabetic foot exam and a Medicare Annual Wellness Visit. Pt is fasting today. Pt sts that she is doing well and has no new concerns or complaints at this time. H ematology: She continues to follow with Dr. Madison regarding her anemia which has been improved. Her dyspnea has resolved. C ardiology: Continues to follow with cardiology with no change in her regimen. * ROS: D ERMATOLOGY: no R adrian. n o H muna. G ASTROENTEROLOGY: no N ausea. n o V omiting. n o D iarrhea.? O PTHALMOLOGY: Negative for d enies vision issues. U ROLOGY: no D ifficulty urinating. n o B lood in urine. * Medical History: H BP, Hyperlipidemia, Depression, Type 2 diabetes, DJD/DDD of lumbar spine with radiculopathy, Sleep apnea, COLOGUARD - Negative 05/2018, ASCVD, Paroxysmal Atrial fibrillation 08/07/2020. * Surgical History: B TL , Heart cath/ Stent x 2/ [place] 05/2018, Colonoscopy/ Dr. Sam 04/2022, Cataract Surgery Bilateral Two Weeks Apart 08/2022, Heart Cath/ Stent x 2 to left main and LAD - Dr. Valerio 05/30/2023. * Hospitalization/Major Diagno stic Procedure: timmy kay , [facility] ER- Shortness of Breath and Afib 08/07/20. * Family History: F ather: . M other: alive, alzheimer. P aternal Grand Father: . P aternal Grand Mother: . M aternal Grand Father: . M aternal Grand Mother: . 3 brother(s) . 1 son(s) , 1 daughter(s) . . 2 brothers with CAD - s\/p CABG. * Social History: C URRENT TOBACCO USE S moking Status: Patient does NOT smoke, Second hand smoke exposure: No. C affeine: yes, frequency:. Exercise: no. Home smoke detector use: yes. Marital Status: . Past smoking status: no. Alcohol: no. * Medications: T aking Eliquis 2.5 MG Tablet 1 tab(s) Orally Two times a day , Taking Diclofenac Sodium 1 % Gel as directed applied topically 4 times a day , Taking Zetia 10 MG Tablet 1 tab(s) orally once a day , Taking Ferrous Sulfate 325 (65 Fe) MG Tablet Delayed Release 1 tab(s) orally once a day , Taking Fish Oil 1000MG 3 TAB(S) P.O. ONCE A DAY , Taking Meclizine HCl 12.5 MG Tablet 1 or 2 tab(s) orally 3 times a day as needed , Taking Spironolactone 50 MG Tablet 1 tab(s) Orally once a day , Taking Metoprolol Succinate ER 100 MG Tablet Extended Release 24 Hour 1 1/2 tab(s) Orally once a day at bedtime , Taking Lopressor 100 MG Tablet 1 tab(s) orally daily , Taking amLODIPine Besylate 5 MG Tablet 1 tab(s) Orally once a day , Taking Rosuvastatin Calcium 20 MG Tablet 1 tab(s) orally once a day , Taking Clopidogrel Bisulfate 75 MG Tablet 1 tab(s) orally once a day , Taking Januvia 100 MG Tablet 1 tablet Orally Once a day , Taking Gabapentin 600 MG Tablet 1 cap(s) orally twice a day , Taking Farxiga 10 MG Tablet 1 tab(s) Orally once a day , Taking Famotidine 40 MG Tablet 1 tab(s) orally once a day (at bedtime) , Taking Glimepiride 4 mg Tablet TAKE 1 TABLET 1 TIME EACH DAY , Taking Valsartan-hydroCHLOROthiazide 320-25 MG Tablet TAKE 1 TABLET 1 TIME EACH DAY , Taking Lantus SoloStar 100 UNIT/ML Solution Pen-injector 54 units Subcutaneous once daily , Taking Fenofibric Acid 135 MG Capsule Delayed Release TAKE 1 CAPSULE BY MOUTH ONCE DAILY , Discontinued Xarelto 20 MG Tablet 1 tablet with food Orally Once a day , Medication List reviewed and reconciled with the patient * Allergies: A CE Inhibitors: cough, Sulfa Antibiotics: itching, Jardiance: yeast infection. Objective: * Vitals: W t:204.6, Temp:98.4, BP:128/64, HR:60, Nurse:KEMAR, Ht: 60, BMI:39.95. * Examination: G eneral Examination: General Appearance: N AD. Weight stable. H EENT: sclera and conjunctiva clear, PERRLA, TM's normal, translucent. O ral cavity: n o lesions, mucosa moist and WNL, no erythema. N alisa: s tocky, no lymphadenopathy, no carotid bruits. . Heart: R SR. L ungs: c lear to auscultation. A bdomen: obese, soft, bowel sounds present, nontender. S kin: n o rash. Mild calluses on both great toes. E xtremities: n o leg edema. Distal pulses intact. Noted with bunion on the right. She has bilateral hammertoes. Sensation intact to monofilament. * Physical Examination: G ENERAL: Pain Assessment: P ain level: 2, on a scale of 0-10 (with 10 being extreme pain). F unctional Status Assessment: P atient response to question of how often physical health interferes with daily activities: . Almost never Able to perform ADLs-including meal preparation, grocery shopping, housework, laundry, taking medications or handling finances. Cognitive Status: alert and oriented. Ambulation Status: Fully ambulatory . F all Risk Assessment: I ndependant in ambulation, adequate lighting in home. Patient has NOT fallen or had trouble walking within the past 12 months. D epression Screening: D enies depressed mood or anxiety. Describes emotional health as: calm. B ladder Control Screening: remedios sandoval. Assessment: * Assessment: 1. A dult general medical examination - Z00.00 (Primary) 2 . A cute sinusitis - J01.90 3 . T ype 2 diabetes mellitus with other circulatory complication - E11.59 4 . D iabetes mellitus with hyperglycemia - E11.65 5 . Paroxysmal atrial fibrillation - I48.0 6 . D yslipidemia - E78.5 ?7. E ssential hypertension - I10 8 . S creening for breast cancer - Z12.39 9 . P ostmenopause - Z78.0 1 0. O SA (obstructive sleep apnea) - G47.33 1 1. G astroesophageal reflux disease without esophagitis - K21.9 1 2. B NH 39.0-39.9,adult - Z68.39 Plan: * Treatment: Value Reference Range w bc 6.1 3.5 - 10 * l ymph 15.4 15 - 50 * m id 4.6 2 - 15 * g ran 80.0 35 - 80 * r bc 4.09 3.5 - 5.5 * h gb 10.9 11.5 - 16.5 * h ct 33.8 35 - 55 * m cv 82.7 75 - 100 * m ch 26.8 25 - 35 * m chc 32.4 31 - 38 * p latlet 209 100 - 400 * Winnie Beasley 05/03/2024 10:4 0:57 AM > Parrish Blakely 05/08/2024 9:02:39 AM >See phone encounter Notes:Patient instructed to return to office Annually for Annual Wellness Visits to include annual screenings of Pain assessment, Functional Ability assessment, Cognitive Ability assessment, Fall Risk assessment, Depression screening and Bladder control screening.??2.?Acute sinusitis? Start Amoxicillin Tablet, 875 MG, 1 tablet, Orally, Twice a day, 14.??3.?Type 2 diabetes mellitus with other circulatory complication?LAB: P-Microalbumin/Creatinine, Random Urine Sample (Collection Date & Time - 05/03/2024 09:22 AM)?a/c 40* Value Reference Range A lbumin/Creatinine Ratio, Urine 40 H 0-30 - ug /mg * C reatinine, Urine 72.2 - mg/dL * M icroalbumin, Urine, Random 2.9 - mg/dL * Parrish Blakely 05/08/2024 9 :02:39 AM >See phone encounter ?LAB: Glycohemoglobin A1c (in house) (Collection Date & Time - 05/03/2024)? 7.2%* Value Reference Range g lycohemoglobin 7.2% 5 - 6.5 % * Winnie Beasley 05/03/2024 10:3 9:48 AM > Parrish Blakely 05/08/2024 9:02:39 AM >See phone encounter 4.?Dyslipidemia? Continue Fenofibric Acid Capsule Delayed Release, 135 MG, take 1 capsule by mouth once daily.?LAB: P-Lipid Panel (Collection Date & Time - 05/03/2024 09:22 AM)?trigs 212 * Value Reference Range C holesterol / HDL Ratio 3.33 0.00-4.44 - Ratio * C holesterol 140 <200 - mg/dL * H DL Cholesterol 42 >39 - mg/dL * L DL Cholesterol (Calculation) 56 <130 - mg/d L * L DL/HDL Ratio 1.3 <3.3 - Ratio * N on-HDL Cholesterol 98 <130 - mg/dL * T riglycerides 212 H <150 - mg/dL * Parrish Blakely 05/08/2024 9 :02:39 AM >See phone encounter 5.?Essential hypertension?LAB: P-Comprehensive Metabolic Panel (CMP) (Collection Date & Time - 05/03/2024 09:22 AM)?gluc 130, bun 37, Cr 1.32, gfr 42* Value Reference Range A /G Ratio 1.5 1.1-2.5 - * A lbumin 4.1 3.5-5.3 - g/dL * A lkaline Phosphatase 46 35-121 - IU/L * A LT (SGPT) 10 <5-47 - IU/L * A ST (SGOT) 12 <5-40 - IU/L * B ilirubin, Total 0.3 <0.2-1.2 - mg/dL * B UN 37 H 8-23 - mg/dL * C alcium 10.1 8.6-10.4 - mg/dL * C hloride 105 97-108 - mmol/L * C O2 26 22-32 - mmol/L * C reatinine 1.32 H 0.50-1.00 - mg/dL * G lucose 130 H 65-99 - mg/dL * P otassium 4.8 3.5-5.3 - mmol/L * S odium 143 135-145 - mmol/L * P rotein 6.8 6.0-8.3 - g/dL * e GFR by Creatinine 42 L >59 - mL/min/1.73m2 * Parrish Blakely 05/08/2024 9 :02:39 AM >See phone encounter 6.?Screening for breast cancer?Imaging: Mammogram (Performed Date - 05/16/2024)?Negative, annual f/u* Value Reference Range r esult Negative, annual f/u * due after 05/10/2024Ayala Pérez 05/04/2024 11:34:48 AM > faxed to [facility] Kami Carrillo 05/04/2024 2:18:52 PM > APPT. 05/16/24 @ 2:30HougCarissa 05/21/2024 2:55:45 PM > Pt informed 7.?Postmenopause?Imaging: Bone density (Performed Date - 05/16/2024)?Normal* [place] Pérez 05/04/2024 11:35 :07 AM > faxed to [facility] Kami Carrillo 05/04/2024 2:18:14 PM > APPT 05/16/24 @3:00HouCarissa recio 05/17/2024 2:48:56 PM > Pt informed * Procedure Codes: G 0439 ANNUAL WELLNESS VST; PPS SUBSQT VST, G0444 ANNUAL DEPRESSION SCREENING 15 MIN, 1090F PRES/ABSN URINE INCON ASSESS, 3288F FALL RISK ASSESSMENT DOCD, 1170F FXNL STATUS ASSESSED, 1159F MED LIST DOCD IN RCRD, 1003F LEVEL OF ACTIVITY ASSESS, 90690 GLYCATED HEMOGLOBIN TEST, Modifiers: QW , 39031 CBC WITH AUTO DIFF, 1036F TOBACCO NON-USER, 3017F COLORECTAL CA SCREEN DOC REV, 4040F PNEUMOC IMM ORDER/ADMIN, 3051F HG A1C>EQUAL 7.0%<8.0%, G8510 NEG SCR Depression PT NOT ELIG F/U/PLN DOC, G8752 MOST RECENT SYSTOLIC BP < 140MM HG, G8754 MOST RECENT DIASTOLIC BP < 90MM HG * Preventive Medicine: Counseling: E motional health: P atient encouraged to try connecting with family or friends to boost mood. B ladder control: M ethods of controlling or managing leakage of urine discussed. E xercise: P atient advised to start, increase or maintain level of exercise/physical activity. I njury prevention: F all prevention discussed. Discussed need for cane/walker. Potential trip hazards discussed. Immunizations: T etanus u p to date. P neumococcal u p to date. I nfluenza u p to date. Screening / Special Tests: M ammogram R ecent history: 05/10/2023, negative.?Colonoscopy R ecent history: 04/13/2022, polyps, diverticulosis, hemorrhoids, repeat 6-12 months secondary to poor prep. B one mineral Density R ecent history: 05/04/2021, normal, recommended. D iabetic Retinal Eye Exam R ecent history: 06/21/2022, recommended today. N ephrology History R ecent history: gfr and urine m/a ordered today. * Follow Up: 6 Months * Images: Billing Information: * Visit Code: 64086 Office Visit, Est Pt., Level 3. Modifiers: 25 * Procedure Codes: G0439 ANNUAL WELLNESS VST; PPS SUBSQT VST. G0444 ANNUAL DEPRESSION SCREENING 15 MIN. 1090F PRES/ABSN URINE INCON ASSESS. 3288F FALL RISK ASSESSMENT DOCD. 1170F FXNL STATUS ASSESSED. 1159F MED LIST DOCD IN RCRD. 1003F LEVEL OF ACTIVITY ASSESS. 73981 GLYCATED HEMOGLOBIN TEST. Modifiers: QW 51909 CBC WITH AUTO DIFF. 1036F TOBACCO NON-USER. 3017F COLORECTAL CA SCREEN DOC REV. 4040F PNEUMOC IMM ORDER/ADMIN. 3051F HG A1C>EQUAL 7.0%<8.0%. G8510 NEG SCR Depression PT NOT ELIG F/U/PLN DOC. G8752 MOST RECENT SYSTOLIC BP < 140MM HG. G8754 MOST RECENT DIASTOLIC BP < 90MM HG. * Electronic signature of Parrish Blakely MD on 11/12/2024 at 09:08 AM EDT Sign off status: Pending * Provider: Parrish Blakely M.D. Date: 0 05/03/2024 Generated for Jack mcgregor/Shreya/Daviditting on: 0 11/12/2024 09:08 AM EDT History and Physical Notes * HPI (History of Present Illness) Category Sub-Category Detail Notes Category Not es HPI Patient is here today for a sche duled 6 month checkup, a diabetic foot exam and a Medicare Annual Wellness Visit. Pt is fasting today. Pt sts that she is doing well and has no new concerns or complaints at this time Physical Examination Category Sub-Category Detail Notes Section Note s GENERAL Pain Assessment: Pain level: 2, on a scale of 0-10 (with 10 being extreme pain) Functional Status Assessment: Patient response to question of how often physical health interferes with daily activities: . Almost never Able to perform ADLs-including meal preparation, grocery shopping, housework, laundry, taking medications or handling finances. Cognitive Status: alert and oriented. Ambulation Status: Fully ambulatory Fall Risk Assessment: Independant in amb ulation, adequate lighting in home. Patient has NOT fallen or had trouble walking within the past 12 months Depression Screening: Denies depressed m ood or anxiety. Describes emotional health as: calm Bladder Control Screening: small problem s Examination Category Sub-Category Detail Notes Category Not es General Examination HEENT: sclera and c onjunctiva clear, PERRLA, TM's normal, translucent Heart: RSR Lungs: clear to auscultatio n Abdomen: obese, soft, bowel s ounds present, nontender Extremities: no leg edema. Distal pulses intact. Noted with bunion on the right. She has bilateral hammertoes. Sensation intact to monofilament General Appearance: NAD. Weight stable Skin: no rash. Mild callus es on both great toes Neck: stocky, no lymphaden opathy, no carotid bruits. Oral cavity: no lesions, mucosa m oist and WNL, no erythema Back:
--- OUTSIDE RECORDS SUMMARY | 2024-09-12 10:45 | XMS_ITS ---
Author Organization [facility] Address [address] [facility] [address] [place] [id number] Care Team Providers Care Mortgage Advisor Name Role Phone Parrish Blakely Primary Care Provider Edna Nii Unavailable [phone] Allergies Allergen (clinical drug ingredient) Drug/Non Drug Allergy documented on EMR Reaction Allergy Type Onset Date Status empagliflozin Jardiance yeast infection Drug Allergy Active angiotensin-converti ng enzyme inhibitor (FN) TIFFANY Inhibitors cough Drug Allergy Active Substance with sulfonamide structure and antibacterial mechanism of action (substance) Sulfa Antibiotics itching Drug Allergy Active Results Component Value Reference Range Notes CBC Fingerstick (in house) Reviewed date:09/12/2024 10:34:10 PM Interpretation: Performing Lab: Notes/Report: wbc 8.0 3.5 - 10 lym 16.1% 15 - 50 mid 4.5% 2 - 15 gran 79.4% 35 - 80 rbc 3.82 3.5 - 5.5 hgb 11.2 11.5 - 16.5 hct 33.8 35 - 55 mcv 88.6 75 - 100 mch 29.3 25 - 35 mchc 33.1 31 - 38 plat 207 100 - 400 REASON FOR VISIT poss cold, allergies Medications Medication SIG (Take, Route, Frequency, Duration) Notes Start Date End Date Status Gabapentin 600 MG 1 cap(s) orally twic e a day; Duration: 30 days 06/25/2024 Active Valsartan-hydroCHLOROthiazid e 320-25 MG TAKE 1 TABLET 1 TIME EACH DAY; Duration: 90 Active Rosuvastatin Calcium 20 mg TAKE 1 TABLET 1 TIME EACH DAY; Duration: 90 Active Lantus SoloStar 100 UNIT/ML INJECT 44 UN ITS UNDER THE SKIN 1 TIME EACH DAY; Duration: 90 Active Famotidine 40 mg TAKE 1 TABLET 1 TIME EACH DAY AT BEDTIME; Duration: 90 Active Glimepiride 4 mg TAKE 1 TABLET 1 TIME EACH DAY; Duration: 90 Active Januvia 100 MG TAKE 1 TABLET BY ELIZABETH TH ONCE DAILY; Duration: 90 Active Farxiga 10 mg TAKE 1 TABLET 1 TIME EACH DAY; Duration: 90 Active Comfort EZ Pen [place] 32G X 5 MM USE TO INJECT INSULIN UNDER THE SKIN 1 TIME EACH DAY; Duration: 90 Active Clopidogrel Bisulfate 75 MG 1 tab(s) ora lly once a day Active Promethazine-DM 6.25-15 MG/5ML 5 mL as needed Orally every 6 hrs 09/12/2024 Active Zithromax Z-Rashid 250 MG as directed Orall y daily; Duration: 5 days 09/12/2024 Active Fenofibric Acid 135 MG TAKE 1 CAPSULE BY MOUTH ONCE DAILY; Duration: 90 Active amLODIPine Besylate 5 MG 1 tab(s) Orally once a day Active Metoprolol Succinate ER 100 MG 1 1/2 tab(s) Orally once a day at bedtime Active Lopressor 100 MG 1 tab(s) orally daily Active Meclizine HCl 12.5 MG 1 or 2 tab(s) oral ly 3 times a day as needed 10/16/2012 Active Spironolactone 50 MG 1 tab(s) Orally onc e a day Active Eliquis 2.5 MG 1 tab(s) Orally Two times a day Active Ferrous Sulfate 325 (65 Fe) MG 1 tab(s) orally once a day; Duration: 30 day(s) 10/11/2013 Active Fish Oil 1000MG 3 TAB(S) P.O. ONCE A DAY Active Diclofenac Sodium 1 % as directed applie d topically 4 times a day 04/29/2022 Active Zetia 10 MG 1 tab(s) orally once a day; Duration: 30 day(s) Active Problems Problem Type SNOMED Code ICD Code Onset Dates Problem Status W/U Status Risk Notes Problem Heart failure (06511090) Heart failure, unspecified HF chronicity, unspecified heart failure type (I50.9) Active confirmed Problem Body mass index 40+ - severely obese (375085303) Body mass index (BMI) of 40.1 to 44.9 in adult (Z68.41) Active confirmed Problem Chronic kidney disease stage 3B (disorder) (514951016) Chronic kidney disease, stage 3b (N18.32) Active confirmed Vital Signs Blood pressure systolic 132 mm Hg 09/13/19 25 Blood pressure diastolic 74 mm Hg 025 Heart Rate 81 /min 09/12/2024 Height 60 in 09/12/2024 Weight 211 lbs 09/12/2024 BMI 41.2 kg/m2 09/12/2024 Encounters Encounter Location Date Provider Diagnosis [facility] [address] [facility] [address] [place], [place] [id number] 09/12/2024 Nii Bishop Acute URI J06.9 ; Dyslipidemia E78.5 ; Hypertensive heart and chronic kidney disease with heart failure I13.0 ; Heart failure, unspecified HF chronicity, unspecified heart failure type I50.9 ; Body mass index (BMI) of 40.1 to 44.9 in adult Z68.41 and Chronic kidney disease, stage 3b N18.32 Assessments Encounter Date Diagnosis (ICD Code) Assessment Notes Treatment Notes Treatment Clinical Notes Section Notes 09/12/2024 Acute URI (ICD-10 - J06.9) 09/12/2024 Dyslipidemia (ICD-10 - E78.5) 09/12/2024 Hypertensive heart and chronic kidney disease with heart failure (ICD-10 - I13.0) 09/12/2024 Heart failure, unspecified HF chronicity, unspecified heart failure type (ICD-10 - I50.9) 09/12/2024 Body mass index (BMI) of 40.1 to 44.9 in adult (ICD-10 - Z68.41) 09/12/2024 Chronic kidney disease, stage 3b (ICD-10 - N18.32) Plan Of Treatment Medication Medication Name Sig Start Date Stop Date Notes Promethazine-DM 6.25-15 MG/5ML 5 mL as n eeded Orally every 6 hrs 09/12/2024 Zithromax Z-Rashid 250 MG as directed Orall y daily; Duration: 5 days 09/12/2024 Next Appt Details Follow Up: prn, Reason: Provider Name:Parrish Moses, 05/14/2025 09:00:00 AM, [address], [address], [place], [place], [id number], Progress Notes * PARMINDER SOUSAOB:1950 (74 yo F)Acc No.[id number]:09/12/2024 Progress Notes Patient: JIAN HOUGH Provider: Annelise Bishop M.D. :1950 A ge:73 Y S ex:Female Date:09/12/2024 Address:[address], [place], [id number] Pcp:Parrish Blakely Subjective: * Chief Complaints: * 1 . Poss cold, allergies. * HPI: E NT/respiratory: 73 year old female presents with c/o cough P t complains of greenish yellow sputum production cough for about a week. Associated with low grade fever a nd shortness of breath . Denies : body aches. * ROS: D ERMATOLOGY: no R adrian. n o H muna. G ASTROENTEROLOGY: no N ausea. n o V omiting. U ROLOGY: no D ifficulty urinating. n o B lood in urine. * Medical History: H ypertension, Hyperlipidemia, Depression, Type 2 diabetes, DJD/DDD of [...] * Hospitalization/Major Diagno stic Procedure: timmy kay [facility] ER- Shortness of Breath and Afib 08/07/2020. * Family History: F ather: . M [...] tab(s) Orally once a day , Taking Clopidogrel Bisulfate 75 MG Tablet 1 tab(s) orally once a day , Taking Fenofibric Acid 135 MG Capsule Delayed Release TAKE 1 CAPSULE BY MOUTH ONCE DAILY , Taking Comfort EZ Pen [place] 32G X 5 MM Miscellaneous USE TO INJECT INSULIN UNDER THE SKIN 1 TIME EACH DAY , Taking Januvia 100 MG Tablet TAKE 1 TABLET BY MOUTH ONCE DAILY , Taking Farxiga 10 mg Tablet TAKE 1 TABLET 1 TIME EACH DAY , Taking Famotidine 40 mg Tablet TAKE 1 TABLET 1 TIME EACH DAY AT BEDTIME , Taking Glimepiride 4 mg Tablet TAKE 1 TABLET 1 TIME EACH DAY , Taking Valsartan-hydroCHLOROthiazide 320-25 MG Tablet TAKE 1 TABLET 1 TIME EACH DAY , Taking Rosuvastatin Calcium 20 mg Tablet TAKE 1 TABLET 1 TIME EACH DAY , Taking Gabapentin 600 MG Tablet 1 cap(s) orally twice a day , Taking Lantus SoloStar 100 UNIT/ML Solution Pen-injector INJECT 44 UNITS UNDER THE SKIN 1 TIME EACH DAY , Discontinued Fenofibric Acid 135 MG Capsule Delayed Release take 1 capsule by mouth once daily , Discontinued Amoxicillin 875 MG Tablet 1 tablet Orally Twice a day , Medication List reviewed and reconciled with the patient * Allergies: A CE Inhibitors: cough, Sulfa Antibiotics: itching, Jardiance: yeast infection. Objective: * Vitals: W t: 211, Temp: 98.2, BP: 132/74, HR: 81, O2 Sat: 91% on RA, Nurse: ANGLE, Ht: 60, BMI:41.2. * Examination: E NT/Respiratory: General Appearance: N AD. O ral cavity : e rythema without exudate on pharynx. H eart : R RR. L ungs: c lear to auscultation bilaterally. Assessment: * Assessment: 1. A cute URI - J06.9 (Primary) 2 . D yslipidemia - E78.5 3 . H ypertensive heart and chronic kidney disease with heart failure - I13.0 4 .?Heart failure, unspecified HF chronicity, unspecified heart failure type - I50.9 5. B momo mass index (BMI) of 40.1 to 44.9 in adult - Z68.41 6 . C hronic kidney disease, stage 3b - N18.32 Plan: * Treatment: Value Reference Range w bc 8.0 3.5 - 10 * l ym 16.1% 15 - 50 * m id 4.5% 2 - 15 * g ran 79.4% 35 - 80 * r bc 3.82 3.5 - 5.5 * h gb 11.2 11.5 - 16.5 * h ct 33.8 35 - 55 * m cv 88.6 75 - 100 * m ch 29.3 25 - 35 * m chc 33.1 31 - 38 * p lat 207 100 - 400 * Ines Garcia 09/12/2024 03:20:0 0 PM EDT > Provider reviewed results while patient in office.Nii Bishop 09/12/2024 10:34:05 PM EDT > * Procedure Codes: G 2211 Complex e/[place], [address] CAPILLARY BLOOD DRAW, 54724 CBC WITH AUTO DIFF, G8752 MOST RECENT SYSTOLIC BP < 140MM HG, G8754 MOST RECENT DIASTOLIC BP < 90MM HG * Follow Up: p rn * Images: Billing Information: * Visit Code: 44794 Office Visit, Est Pt., Level 3. * Procedure Codes: G2211 Complex e/[place]. [address] CAPILLARY BLOOD DRAW. 58268 CBC WITH AUTO DIFF. G8752 MOST RECENT SYSTOLIC BP < 140MM HG. G8754 MOST RECENT DIASTOLIC BP < 90MM HG. * Electronic signature of Marj Bishop MD on 11/12/2024 at 09:08 AM EDT Sign off status: Pending * Provider: Annelise Bishop M.D. Date: 09/12/2024 Generated for Jack mcgregor/Shreya/eTarpitsmitting on: 11/12/2024 09:08 AM EDT History and Physical Notes * HPI (History of Present Illness) Category Sub-Category Detail Notes Category Not es ENT/respiratory cough Pt complains of greenish yellow sputum production cough for about a week. Associated with low grade fever and shortness of breath body aches Examination Category Sub-Category Detail Notes Category Not es ENT/Respiratory Oral cavity : erythema without exudate on pharynx Heart : RRR Lungs: clear to auscultatio n bilaterally General Appearance: NAD
--- OUTSIDE RECORDS SUMMARY | 2024-11-08 05:00 | XMS_ITS ---
Author Organization [facility] Address [address] [facility] [address] [place] [id number] Care Team Providers Care Continuous Wave Operator Name Role Phone Parrish Blakely Primary Care Provider [phone] Allergies Allergen (clinical drug ingredient) Drug/Non Drug [...] 10.8 Performing Lab: Notes/Report: Test performed by [facility] [address] [place] [address] Usha Troncoso C, [place] [address] Khadar Mckay MD, Ticket Sales Supervisor CLIA: [id number] Sodium 142 135-145 mmol/L Potassium 4.7 3.5-5.3 [...] 316 Performing Lab: Notes/Report: Test performed by [facility] [address] [place] [address] Usha Troncoso C, [place] [address] Khadar Mckay MD, Ticket Sales Supervisor CLIA: [id number] Cholesterol 166 <200 mg/dL Triglycerides 316 <150 [...] Results: 53 Units: mg/dL % Change: -5% REASON FOR VISIT 6 month checkup, Needs [...] BEDTIME; Duration: 90 Active Comfort EZ Pen Ada 32G X 5 MM USE TO INJECT [...] W/U Status Risk Notes Problem Chronic anemia (451510067) Chronic anemia (D64.9) Active confirmed Vital Signs Blood pressure systolic 130 mm Hg 11/09/19 25 Blood pressure diastolic 70 mm Hg 025 Heart Rate 62 /min 11/08/2024 Height 60 in 11/08/2024 Weight 213.2 lbs 11/08/2024 BMI 41.63 kg/m2 11/08/2024 Encounters Encounter Location Date Provider Diagnosis [facility] 36 [facility] [address] [place] [id number] 11/08/2024 Parrish Blakely Type 2 diabetes stas itus with other circulatory complication E11.59 ; Diabetes mellitus with hyperglycemia E11.65 ; Paroxysmal atrial fibrillation I48.0 ; Dyslipidemia E78.5 ; Essential hypertension I10 ; Postmenopause Z78.0 ; JACQUELYN (obstructive sleep apnea) G47.33 ; Gastroesophageal reflux disease without esophagitis K21.9 ; Chronic anemia D64.9 and Hip pain, acute, left M25.552 Assessments Encounter Date Diagnosis (ICD Code) Assessment [...] Hip pain, acute, left (ICD-10 - M25.552) Plan Of Treatment Medication Medication Name Sig Start Date Stop Date Notes Fenofibric Acid 135 MG take 1 capsule by mouth once daily Pending Test Test Name Order Date X ray : Hip, left 11/08/2024 Next Appt Details Follow Up: 6 Months, Reason: Provider Name:Parrish Moses, 05/14/2025 09:00:00 AM, [address] [facility], [address], [place], [id number], Progress Notes * PARMINDER SOUSAOB:1950 (74 yo F)Acc No.[id number]:11/08/2024 Progress Notes Patient: JIAN HOUGH Provider: Parrish Blakely M.D. :1950 A ge:74 Y S ex:Female Date:11/08/2024 Address:[address], [place], [id number] Subjective: * Chief Complaints: * 1 . [...] pain over the lateral hip since then. * ROS: D ERMATOLOGY: no R adrian. [...] * Hospitalization/Major Diagno stic Procedure: timmy kay [facility] ER- Shortness of Breath and Afib 08/07/2020. * Family History: F ather: . M other: alive, alzheimer. P aternal Grand Father: . P aternal Grand Mother: . M aternal Grand Father: . M aternal Grand Mother: . 3 brother(s) . 1 son(s) , 1 daughter(s) . . 2 brothers with CAD - s\\/p CABG. * Social History: C URRENT TOBACCO [...] a day , Taking Comfort EZ Pen Ada 32G X 5 MM Miscellaneous USE TO [...] bdomen: obese, soft, bowel sounds present, nontender. E xtremities: n o leg edema. L [...] H ip pain, acute, left - M25.552 Plan: * Treatment: Value Reference Range g lycohemoglobin 7.4% 5 - 6.5 % * Carissa Farr 11/08/2024 09:3 8:09 AM EDT > Parrish Blakely 11/11/2024 04:31:45 PM EDT > See phone encounter 2.?Dyslipidemia? Continue Fenofibric Acid Capsule Delayed Release, [...] 04:31:45 PM EDT > See phone encounter * Imaging: * I maging: X ray : Hip, left * Procedure Codes: 8 5025 CBC WITH AUTO DIFF, 63641 VENIPUNCT, ROUTINE*, 05309 CAPILLARY BLOOD DRAW, 64091 GLYCATED HEMOGLOBIN TEST, Modifiers: QW * Follow Up: 6 Months * Images: Billing Information: * Visit Code: 19461 Office Visit, Est Pt., Level 3. * Procedure Codes: 35238 CBC WITH AUTO DIFF. 33064 VENIPUNCT, ROUTINE*. 40031 CAPILLARY BLOOD DRAW. 20735 GLYCATED HEMOGLOBIN TEST. Modifiers: QW * Electronic signature of Parrish Blakely MD on 11/12/2024 at 09:08 AM EDT Sign off status: Pending * Provider: Parrish Blakely M.D. Date: 0 11/08/2024 Generated for Jack mcgregor/Shreya/Daviditting on: 0 11/12/2024 09:08 AM EDT History and Physical Notes * HPI (History of Present Illness) Category Sub-Category Detail Notes Category Not es Hip/Thigh hip pain left. Pt sts her left hip has been bothering her since last week. Pt sts she left the dentist office and when she stepped off the step outside she felt a pop in her hip and has been having pain over the lateral hip since then HPI Patient is here today for Pt is here today for a [...] trochanter. General Appearance: NAD. Weight stable Skin: Neck: stocky, no lymphaden opathy, no carotid bruits. Oral cavity: no lesions, mucosa m oist and WNL, no erythema Back:"
--- OUTSIDE RECORDS SUMMARY | 2024-11-12 09:08 | XMS_ITS | Patient Health Record ---
Author Organization [facility] Address [address] [facility] [address] [facility] [address] [place] [id number] Care Team Providers Care Director Digital Analytics Name Role Phone Parrish Blakely Primary Care Provider [phone] Nii Bishop Unavailable [phone] Allergies Allergen (clinical drug ingredient) Drug/Non Drug [...] 10.8 Performing Lab: Notes/Report: Test performed by [facility] [address] [place] [address] [address], [place] [address] Khadar Mckay MD, Plate And Frame Filter Operator CLIA: [id number] Sodium 142 135-145 mmol/L Potassium 4.7 3.5-5.3 [...] 316 Performing Lab: Notes/Report: Test performed by [facility] [address] [place] [address] , [address], [place] [address] Khadar Mckay MD, Plate And Frame Filter Operator CLIA: [id number] Cholesterol 166 <200 mg/dL Triglycerides 316 <150 [...] Results: 56 Units: mg/dL % Change: +19% ------- Test Date: 11/08/2024 LDL Results: 53 Units: mg/dL % Change: -5% CBC Fingerstick (in house) Reviewed date:09/12/2024 10:34:10 [...] - 38 plat 207 100 - 400 Bone density Reviewed date:05/17/2024 02:49:04 PM Interpretation:Normal Performing Lab: Notes/Report: Normal P-Microalbumin/Creatinine, R andom Urine Sample Reviewed date:05/08/2024 09:02:51 AM Interpretation:a/c 40 Performing Lab: Notes/Report: Test performed by [facility] [address] [place] [address] , [place] [address] Khadar Mckay MD, Plate And Frame Filter Operator CLIA: [id number] Albumin/Creatinine Ratio, Urine 40 0-30 ug/mg Microalbumin, Urine, Random 2.9 Creatinine, Urine 72.2 P-Lipid Panel Reviewed date:05/08/2024 09:02:51 AM Interpretation:trigs 212 Performing Lab: Notes/Report: Test performed by [facility] [address] [place] [address] , [address], [place] [address] Khadar Mckay MD, Plate And Frame Filter Operator CLIA: [id number] Cholesterol 140 <200 mg/dL Triglycerides 212 <150 [...] Results: 56 Units: mg/dL % Change: +19% P-Comprehensive Metabolic Pa suresh (CMP) Reviewed date:05/08/2024 09:02:51 AM Interpretation:gluc 130, bun 37, Cr 1.32, gfr 42 Performing Lab: Notes/Report: Test performed by [facility] [address] [facility] , [address], [place] [address] Khadar Mckay MD, Plate And Frame Filter Operator CLIA: [id number] Sodium 143 135-145 mmol/L Potassium 4.8 3.5-5.3 [...] 0.3 <0.2-1.2 mg/dL A/G Ratio 1.5 1.1-2.5 Glycohemoglobin A1c (in hous e) Reviewed date:05/08/2024 09:02:51 AM Interpretation:7.2% Performing Lab: Notes/Report: 7.2% glycohemoglobin 7.2% 5 - 6.5 % CBC Venipuncture (in house) Reviewed date:05/08/2024 09:02:51 [...] - 38 platlet 209 100 - 400 Mammogram Reviewed date:05/21/2024 02:55:55 PM Interpretation:Negative, annual f/u Performing Lab: Notes/Report: Negative, annual f/u result Negative, annual f/u Medications Medication SIG (Take, Route, Frequency, Duration) Notes Start Date End Date Status Lopressor 100 MG 1 tab(s) orally daily Active Fenofibric Acid 135 MG 1 capsule Orally Once a day; Duration: 90 days Active Lantus SoloStar 100 UNIT/ML INJECT 50 UNITS UNDER THE SKIN 1 TIME EACH DAY Active Zithromax Z-Rashid 250 MG as directed Orall y daily; Duration: 5 days 09/12/2024 Not-Taking amLODIPine Besylate 5 MG 1 tab(s) Orally once a day Active Januvia 100 MG 1 tablet Orally Once a day; Duration: 90 days Active Meclizine HCl 12.5 MG 1 or 2 tab(s) oral ly 3 times a day as needed 10/16/2012 Active Rosuvastatin Calcium 20 mg TAKE 1 TABLET 1 TIME EACH DAY; Duration: 90 Active Spironolactone 50 MG 1 tab(s) Orally onc e a day Active Gabapentin 600 MG 1 cap(s) orally twic e a day; Duration: 30 days 06/25/2024 Active Ferrous Sulfate 325 (65 Fe) MG 1 tab(s) orally once a day; Duration: 30 day(s) 10/11/2013 Active Glimepiride 4 mg TAKE 1 TABLET 1 TIME EACH DAY; Duration: 90 Active Fish Oil 1000MG 3 TAB(S) P.O. ONCE A DAY Active Valsartan-hydroCHLOROthiaz nelly 320-25 MG TAKE 1 TABLET 1 TIME EACH DAY; Duration: 90 Active Diclofenac Sodium 1 % as directed applie d topically 4 times a day 04/29/2022 Active Farxiga 10 mg TAKE 1 TABLET 1 TIME EACH DAY; Duration: 90 Active Zetia 10 MG 1 tab(s) orally once a day; Duration: 30 day(s) Active Famotidine 40 mg TAKE 1 TABLET 1 TIME EACH DAY AT BEDTIME; Duration: 90 Active Promethazine-DM 6.25-15 MG/5ML 5 mL as needed Orally every 6 hrs 09/12/2024 Not-Taking Clopidogrel Bisulfate 75 MG 1 tab(s) orally once a day Active Eliquis 2.5 MG 1 tab(s) Orally Two times a day Active Comfort EZ Pen [place] 32G X 5 MM USE TO INJECT INSULIN UNDER THE SKIN 1 TIME EACH DAY; Duration: 90 Active Metoprolol Succinate ER 100 MG 1 1/2 tab(s) Orally once a day at bedtime Active Fenofibric Acid 135 MG take 1 capsule by mouth once daily Active Immunizations Vaccine Route Administration Date Status Comme nts [...] (65yr and older) IM Intramuscular 12/22/2022 Administered Fluzone High Dose (65yr and older) IM Intramuscular 12/30/2023 Administered PNEUMOVAX 23 VACCINE IM Intramuscular 04/22/2017 Administe red Prevnar (PCV13) IM Intramuscular 04/20/2016 Administered Prevnar (PCV20) IM Intramuscular 04/28/2023 Administered Tetanus Tdap-Adacel (over 7yrs) IM Intramuscular 04/21/2018 Administered xAdministration of injection IM Intramuscular 10/21/2015 Administered xFlu shot-36 months and older IM Intramuscular 03/06/2005 Administered xFlu shot-36 months and older IM Intramuscular 03/10/2007 Administered Problems Problem Type SNOMED Code ICD Code Onset Dates Problem Status W/U Status Risk Notes Problem Atrial fibrillation (69566284) A-fib (I48.91) Active confirmed Problem Essential hypertension (66457135) Essential hypertension (I10) Active confirmed Problem Abnormal mammogram (657624700) Abnormal mammogram (R92.8) Active confirmed Problem Seasonal allergy (179392048) Seasonal allergies (J30.2) Active confirmed Problem Hypoglycemic state in diabetes (091435678) Hypoglycemia associated with diabetes (E11.649) Active confirmed Problem Iron deficiency anemia (60761568) Iron deficiency anemia (D50.9) Active confirmed Problem Paroxysmal atrial fibrillation (244030084) Paroxysmal atrial fibrillation (I48.0) Active confirmed Problem Generalized osteoarthritis (213375433) Generalized osteoarthritis (M15.9) Active confirmed Problem Atherosclerotic heart disease of [place] coronary artery without angina pectoris (376690488377492) 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) Active confirmed Problem Gastroesophageal reflux disease without esophagitis (641046625) Gastroesophageal reflux disease without esophagitis (K21.9) Active confirmed Problem Hyperglycemia due to type 2 diabetes mellitus (479715102473190) Diabetes mellitus with hyperglycemia (E11.65) Active confirmed Problem Obstructive sleep apnea syndrome (26659425) JACQUELYN (obstructive sleep apnea) (G47.33) Active confirmed Problem Dyslipidemia (243667407) Dyslipidemia (E78.5) Active confirmed Problem Body mass index 40+ - severely obese (969398506) Body mass index (BMI) of 40.1 to 44.9 in adult (Z68.41) Active confirmed Problem Peripheral circulatory disorder associated with diabetes mellitus (047012551) 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) Active confirmed Problem Obese class II (142025245505634) BMI 39.0-39.9,adult (Z68.39) Active confirmed Problem Chronic anemia (443899202) Chronic anemia (D64.9) Active confirmed Problem Thyromegaly (2964329) Thyromegaly (E01.0) Active confirmed Problem Heart failure (30319712) Heart failure, unspecified HF chronicity, unspecified heart failure type (I50.9) Active confirmed Problem Chronic kidney disease stage 3B (disorder) (189885313) Chronic kidney disease, stage 3b (N18.32) Active confirmed Vital Signs Heart Rate 62 /min 11/08/2024 Blood pressure diastolic 70 mm Hg 11/08/2024 Height 60 in 11/08/2024 Blood pressure systolic 130 mm Hg 11/08/2024 Weight 213.2 lbs 11/08/2024 BMI 41.63 kg/m2 11/08/2024 Encounters Encounter Location Date Provider Diagnosis [place] [address] [facility] [address] [place] [id number] 12/30/2023 Nii Bishop [facility] [address] [place] [id number] 03/01/2024 Parrish Blakely Iron deficiency anem ia D50.9 and Paroxysmal atrial fibrillation I48.0 [facility] [address] [facility] [address] [place] [id number] 05/03/2024 Parrish Blakely Adult general medica l [...] without esophagitis K21.9 and BMI 39.0-39.9,adult Z68.39 [facility] [address] [facility] [address] [place] [id number] 09/12/2024 Nii [place] Acute URI J06.9 ; Dyslipidemia E78.5 ; Hypertensive heart and chronic kidney disease with heart failure I13.0 ; Heart failure, unspecified HF chronicity, unspecified heart failure type I50.9 ; Body mass index (BMI) of 40.1 to 44.9 in adult Z68.41 and Chronic kidney disease, stage 3b N18.32 [facility] [address] [facility] [address] [place], [place] [id number] 11/08/2024 R Yaya Reddy Type 2 diabetes stas itus with other circulatory complication E11.59 ; Diabetes mellitus with hyperglycemia E11.65 ; Paroxysmal atrial fibrillation I48.0 ; Dyslipidemia E78.5 ; Essential hypertension I10 ; Postmenopause Z78.0 ; JACQUELYN (obstructive sleep apnea) G47.33 ; Gastroesophageal reflux disease without esophagitis K21.9 ; Chronic anemia D64.9 and Hip pain, acute, left M25.552 [facility] [address] [facility] [address] [facility] [address] [place], [place] [id number] 11/11/2024 R Yaya Durant [facility] [address] [facility] [address] [place], [place] [id number] 11/16/2023 R Yaya Blakely Lumbar radicular syed n M54.16 [facility] [address] [facility] [address] [facility] [address] [place], [place] [id number] 05/08/2024 R Yaya Blakely [facility] [address] [facility] [address] [facility] [address] [place], [place] [id number] 05/23/2024 [place] Lumbar radicular syed n M54.16 [facility] [address] [facility] [address] [place], [place] [id number] 06/25/2024 R Yaya Reddy Lumbar radicular syed n M54.16 Assessments Encounter Date Diagnosis (ICD Code) Assessment Notes Treatment Notes Treatment Clinical Notes Section Notes 11/16/2023 Lumbar radicular pain (ICD-10 - M54.16) 12/30/2023 Encounter for immunization (ICD-10 - Z23) 03/01/2024 Iron deficiency anemia (ICD-10 - D50.9) Dyspnea likely related to her anemia. She just returned from receiving a unit of blood transfusion. She is scheduled to follow-up with Dr. Madison next week for consideration of IV iron as she has not responded to oral iron supplements. 03/01/2024 Paroxysmal atrial fibrillation (ICD-10 - I48.0) Continue follow-up with cardiology 05/03/2024 Acute sinusitis (ICD-10 - J01.90) 05/03/2024 Adult general medical examination (ICD-10 - Z00.00) Patient instructed to return to office Annually for Annual Wellness Visits to include annual screenings of Pain assessment, Functional Ability assessment, Cognitive Ability assessment, Fall Risk assessment, Depression screening and Bladder control screening. 05/23/2024 Lumbar radicular pain (ICD-10 - M54.16) 06/25/2024 Lumbar radicular pain (ICD-10 - M54.16) 09/12/2024 Acute URI (ICD-10 - J06.9) 09/12/2024 Dyslipidemia (ICD-10 - E78.5) 11/08/2024 Diabetes mellitus with hyperglycemia (ICD-10 - E11.65) 11/08/2024 Type 2 diabetes mellitus with other circulatory complication (ICD-10 - E11.59) 09/12/2024 Hypertensive heart and chronic kidney disease with heart failure (ICD-10 - I13.0) 11/08/2024 Paroxysmal atrial fibrillation (ICD-10 - I48.0) 05/03/2024 Type 2 diabetes mellitus with other circulatory complication (ICD-10 - E11.59) 05/03/2024 Diabetes mellitus with hyperglycemia (ICD-10 - E11.65) 09/12/2024 Heart failure, unspecified HF chronicity, unspecified heart failure type (ICD-10 - I50.9) 11/08/2024 Dyslipidemia (ICD-10 - E78.5) 11/08/2024 Essential hypertension (ICD-10 - I10) 09/12/2024 Body mass index (BMI) of 40.1 to 44.9 in adult (ICD-10 - Z68.41) 05/03/2024 Paroxysmal atrial fibrillation (ICD-10 - I48.0) 09/12/2024 Chronic kidney disease, stage 3b (ICD-10 - N18.32) 05/03/2024 Dyslipidemia (ICD-10 - E78.5) 11/08/2024 Postmenopause (ICD-10 - Z78.0) 11/08/2024 JACQUELYN (obstructive sleep apnea) (ICD-10 - G47.33) 05/03/2024 Essential hypertension (ICD-10 - I10) 05/03/2024 Screening for breast cancer (ICD-10 - Z12.39) 11/08/2024 Gastroesophageal reflux disease without esophagitis (ICD-10 - K21.9) 11/08/2024 Chronic anemia (ICD-10 - D64.9) 05/03/2024 Postmenopause (ICD-10 - Z78.0) 05/03/2024 JACQUELYN (obstructive sleep apnea) (ICD-10 - G47.33) 11/08/2024 Hip pain, acute, left (ICD-10 - M25.552) 05/03/2024 Gastroesophageal reflux disease without esophagitis (ICD-10 - K21.9) 05/03/2024 BMI 39.0-39.9,adult (ICD-10 - Z68.39) Plan Of Treatment Pending Test Test Name Order Date X ray : Hip, left 11/08/2024 Next Appt Details Provider Name:Parrish Moses, 05/14/2025 09:00:00 AM, [address], [address], [place], [place], [id number], Insurance Providers Payer Name Payer Address Payer Phone Subscriber Number Group Number Insured Name Patient Relationship to Insured Coverage Start Date Coverage End Date MEDICARE PART B [address] [address] [place] [address] [id number] JIAN SOUSA Self - patient is the insured [facility] [employer] [address] [place] [id number] JIAN SOUSA Self - patient is the insured Medications Administered Medication Instructions Date of Administration Dosage Notes Dexamethasone 10/24/2007 1 mL Dexamethasone 06/11/2015 1 mL Medical (General) History Medical History History ICD Code Hypertension Hyperlipidemia Depression Type 2 diabetes 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 Sam 04/2022 Cataract Surgery Bilateral Two Weeks Apa rt 08/2022 Heart Cath/ Stent x 2 to left main and L AD - Dr. Valerio 05/30/2023 Hospitalization History Reason Date(Month/Year) [facility] ER- Shortness of Breath and Afib childbirth
--- OUTSIDE RECORDS SUMMARY | 2024-11-12 09:09 | XMS_ITS | Referral Summary ---
Author Organization [employer] ([place], [place], [place], [place]) Address [address] [place] [address] Care Team Providers Care Customs Compliance Director Name Role Phone Ruel Blakely MD Primary Care Provider [phone] Allergies Active Allergy Reactions Criticality Noted Date Comments Sulfa (Sulfonamide Antibiotics) Itching 07/11 Medications acetaminophen (TYLENOL) 650 MG CR tablet Take 2 tablets (1,300 mg total) by mouth in the morning and 2 tablets (1,300 mg total) before bedtime. Active fenofibric acid, choline, 135 mg capsule Take 1 capsule (135 mg total) by mouth in the morning. Active dapagliflozin (FARXIGA) 5 mg tablet Take 1 tablet (5 mg total) by mouth in the morning. Active gabapentin (NEURONTIN) 600 MG tablet Take 1 tablet (600 mg total) by mouth in the morning and 1 tablet (600 mg total) before bedtime. Active SITagliptin phosphate (JANUVIA) 100 MG tablet Take 1 tablet (100 mg total) by mouth in the morning. Active famotidine (PEPCID) 40 MG tablet Take 1 tablet (40 mg total) by mouth in the morning. Active valsartan-hydro chlorothiazide (DIOVAN-HCT) 320-25 mg per tablet Take 1 tablet by mouth in the morning. Active amLODIPine (NORVASC) 10 MG tablet Take 1 tablet (10 mg total) by mouth in the morning and 1 tablet (10 mg total) before bedtime. Active glimepiride (AMARYL) 4 MG tablet Take 1 tablet (4 mg total) by mouth every morning before breakfast. Active clopidogreL (PLAVIX) 75 mg tablet Take 1 tablet (75 mg total) by mouth in the morning. Active metoprolol succinate (TOPROL-XL) 100 MG 24 hr tablet Take 1 tablet (100 mg total) by mouth in the morning. Active spironolactone (ALDACTONE) 25 MG tablet Take 1 tablet (25 mg total) by mouth in the morning. Active rosuvastatin (CRESTOR) 20 MG tablet Take 1 tablet (20 mg total) by mouth in the morning. Active rivaroxaban (XARELTO) 20 mg tablet Take by mouth daily with dinner. Active cyanocobalamin, vitamin B-12, 250 MCG tablet Take 1 tablet (250 mcg total) by mouth in the morning. Active ascorbic acid, vitamin C, (VITAMIN C) 500 MG tablet Take 1 tablet (500 mg total) by mouth in the morning. Active zinc gluconate 50 mg tablet Take 1 tablet (50 mg total) by mouth in the morning. Active ferrous sulfate 325 (65 FE) MG tablet Take 1 tablet (325 mg total) by mouth daily with breakfast. Active multivitamin capsule Take 1 capsule by mouth in the morning. Active cholecalciferol , vitamin D3, 25 mcg (1,000 unit) capsule Take 1 capsule (1,000 Units total) by mouth in the morning. Active omega-3 fatty acids-fish oil 340-1,000 mg Cap per capsule Take 2 capsules (2 g total) by mouth in the morning and 2 capsules (2 g total) before bedtime. Active Active Problems Problem Noted Date Diagnosed Date HTN (hypertension) 08/26/2022 Atrial fibrillation 08/26/2022 CAD (coronary artery disease) 08/26/2022 Stented coronary artery 08/26/2022 Gastroesophageal reflux disease 08/26/2022 PUD (peptic ulcer disease) 08/26/2022 Social History Tobacco Use Types Packs/Day Years Used Date Smoking Tobacco: Former Cigarettes Q uit: 1999 Smokeless Tobacco: Never Alcohol Use Standard Drinks/Week Comments Never 0 (1 standard drink = 0.6 oz pur e alcohol) Food Insecurity Answer Date Recorded Food run out past 12 months Not on file 04/12 Food did not last past 12 months Not on file 04/30/2023 Employment Answer Date Recorded Help finding and keeping a job Not on file 0 04/30/2023 Family and Community Support Answer Terry e Recorded Help with Day to Day Activities Not on file 04/30/2023 Feeling Lonely or Isolated Not on file 04/30 Educational Attainment Answer Date Jose Guadalupe rded Speak language other than [place]ibian at home Not on file 04/30/2023 Want help with school or training Not on file 04/30/2023 Substance Use Answer Date Recorded Used prescription meds for non-medical reasons N ot on file 04/30/2023 Used illegal drugs past 12 months Not on file 04/30/2023 Comments Unknown Sex and Gender Information Value Date Recorded Sex Assigned at Not on file Legal Sex Female 9:30 AM CDT Gender Identity Not on file Sexual Orientation Not on file Last Filed Vital Signs Vital Sign Reading Time Taken Comments Blood Pressure 133/63 08/26/2022 8:20 AM EDT Pulse 73 08/26/2022 8:20 AM EDT Temperature 36.5 C (97.7 F) 08/26/2022 8:20 AM EDT Respiratory Rate 20 08/26/2022 8:20 AM EDT Oxygen Saturation 98% 08/26/2022 8:20 AM EDT Inhaled Oxygen Concentration - - Weight 89.4 kg (197 lb) 08/06/2022 3:00 PM EDT Height 152.4 cm (5') 08/06/2022 3:00 PM EDT Body Mass Index 38.47 08/06/2022 3:00 PM EDT Plan of Treatment Not on file Medical Devices Implanted Type Area Airplane Patrol Pilot Device Identifier Shelf Expiration Date Model / Serial / Lot Iol Uv [place] +24.0 [id number] - [id number] Implanted:Qty : 1 on 08/12/2022 by Tutu Rucker MD at [facility] IMPLANTS Right: Eye IVOLA 05/16/2026 [id number] / [id number] / Iol Uv [place] +24.0 [id number] - [id number] Implanted:Qty : 1 on 08/26/2022 by Tutu Rucker MD at [facility] IMPLANTS Left: Eye VIOLA 10/21/2025 [id number] / [id number] / Stents-Dubose ry Stents-Coron [place] Heart Description:2 heart stents Insurance MEDICARE PART A B [facility] MCR SUPP [facility] CLAIMS Care Teams Customs Compliance Director Relationship Specialty Start Date End Date Ruel Blakely MD [address] [place] [phone] PCP - General Family Medicine 08/10/22
--- OUTSIDE RECORDS SUMMARY | 2024-11-12 09:09 | XMS_ITS | Clinical Summary ---
Author Organization Healthcare Address [address] [place] [address] Care Team Providers Care Sliver Former Name Role Phone Yehuda Koehler MD Primary Care Provider + [phone] Allergies Active Allergy Reactions Criticality Noted Date Comments Sulfa Drugs Other - please docum ent in the comment field Low 05/01/2024 Medications apixaban (Eliquis) 2.5 MG tablet Take 1 tablet (2.5 mg) by mouth 2 (two) times a day. Active Ascorbic Acid (Vitamin C) 500 MG capsule Take by mouth. Acti ve cholecalciferol (Vitamin D-3) 25 MCG (1000 UT) capsule Take 1 capsule (1,000 Units) by mouth 1 (one) time each day. Active clopidogrel (Plavix) 75 MG tablet Take 1 tablet (75 mg) by mouth 1 (one) time each day. Active cyanocobalamin 1000 MCG tablet Take 1 tablet (1,000 mcg) by mouth 1 (one) time each day. Active dapagliflozin (Farxiga) 10 MG tablet Take 1 tablet (10 mg) by mouth 1 (one) time each day. Active famotidine (Pepcid) 40 MG tablet Take 1 tablet (40 mg) by mouth every night. Active choline fenofibrate (Trilipix) [address] capsule Take 1 capsule (135 mg) by mouth 1 (one) time each day. Do not crush, chew, or split. Active ferrous sulfate 325 (65 Fe) MG tablet Take 1 tablet (325 mg) by mouth 1 (one) time each day with breakfast. Active furosemide (Lasix) 40 MG tablet Take 1 tablet (40 mg) by mouth 1 (one) time each day. Active gabapentin (Neurontin) 600 MG tablet Take 1 tablet (600 mg) by mouth 2 (two) times a day. Active glimepiride (Amaryl) 4 MG tablet Take 1 tablet (4 mg) by mouth 1 (one) time each day before breakfast. Active insulin glargine (Lantus) 100 UNIT/ML injection vial Inject 0.2 mL (20 Units) under the skin every night. Active metoprolol succinate XL (Toprol-XL) 100 MG 24 hr tablet Take 1 tablet (100 mg) by mouth 2 (two) times a day. Do not crush or chew. Active Multiple Vitamin (multivitamin) tablet Take 1 tablet by mouth 1 (one) time each day. Active mupirocin (Bactroban) 2 % ointment Apply 1 Application topically 2 (two) times a day. Active rivaroxaban (Xarelto) 20 MG tablet Take 1 tablet (20 mg) by mouth 1 (one) time each day with dinner. Take with food. Active SITagliptin (Januvia) 100 MG tablet Take 1 tablet (100 mg) by mouth 1 (one) time each day. Active spironolactone (Aldactone) 50 MG tablet Take 1 tablet (50 mg) by mouth 1 (one) time each day. Active valsartan-hydroC HLOROthiazide (Diovan-HCT) 320-25 MG tablet Take 1 tablet by mouth 1 (one) time each day. Active Zinc Acetate 25 MG capsule Take by mouth. Acti ve Social History Tobacco Use Types Packs/Day Years Used Date Smoking Tobacco: Former Cigarettes Tobacco Cessation:Counseling Given: Not Answered Alcohol Use Standard Drinks/Week Comments Never 0 (1 standard drink = 0.6 oz pur e alcohol) Comments Unknown Sex and Gender Information Value Date Recorded Sex Assigned at Not on file Legal Sex Female 10:31 AM EDT Gender Identity Not on file Sexual Orientation Not on file Last Filed Vital Signs Vital Sign Reading Time Taken Comments Blood Pressure 155/68 05/04/2024 12:04 PM EST Pulse 70 05/04/2024 12:04 PM EST Temperature - - Respiratory Rate - - Oxygen Saturation - - Inhaled Oxygen Concentration - - Weight - - Height - - Body Mass Index - - Plan of Treatment Upcoming Encounters Date Type Department Care Team (Late st Contact Info) Description 11/16/2024 10:40 AM EDT Office Visit [facility] [address] [facility] [address] [place] [phone] Lakisha Awad, INFORMATION TECHNOLOGY DIRECTOR [address] [phone] Health Maintenance Due Date Last Done Comments [facility]-Bone Density Scan 1949 [facility]-Depression Screening 1949 [facility]-Diabetes: Hemoglobin A1C 1949 [facility]-Hepatitis C Screening 1949 [facility]-Medicare Annual Wellness (AWV) 1949 [facility]-/Child/Adol SDOH Screenings 1949 Diabetes: Dental Exam 09/30/1959 [facility]- SDOH Screenings 09/30/1967 [facility]-Adult SDOH Screenings 09/30/1967 CT Colonography 1994 Colonoscopy 1994 FIT-DNA 1994 FIT 1994 FOBT 1994 Sigmoidoscopy 1994 [facility]-Colorectal Cancer Screening 1994 [facility]-Zoster Vaccines (1 of 2) 09/30/1999 [facility]-Pneumococcal Vaccine: 50+ Years (2 of 2 - PCV) 04/22/2018 04/22/2017 [id number] Vaccine ( season) 2023 02/23/2022, 01/01/2021, 06/05/2020, Additional history exists [facility]-RSV Vaccine: 60+ Years or (1 - 1-dose 75+ series) 2024 [facility]-Influenza Vaccine (#1) 12/10/202401/06, 01/19/2021, 01/30/2020 [facility]-DTaP,Tdap,and Td Vaccines (2 - Td or Tdap) 04/21/2028 04/21/2018 HPV Vaccines Aged Out No longer eligi ble based on patient's age to complete this topic [facility]-HIB Vaccines Aged Out No longer e ligible based on patient's age to complete this topic [facility]-Hepatitis A Vaccines Aged Out No longer eligible based on patient's age to complete this topic [facility]-IPV Vaccines Aged Out No longer e ligible based on patient's age to complete this topic [facility]-Rotavirus Vaccines Aged Out No lo nger eligible based on patient's age to complete this topic [place] [address] [facility] Care Teams Sliver Former Relationship Specialty Start Date End Date Yehuda Koehler MD [address] [place] [id number] PCP - General Internal Medicine 05/04/24
--- OUTSIDE RECORDS SUMMARY | 2024-11-12 09:09 | XMS_ITS | Clinical Summary ---
Author Organization [facility] ([place], [place], [place], [place]) Address [address] [place] [address] Care Team Providers Care Supervisor Carding Name Role Phone Ruel Blakely MD Primary Care Provider [phone] Allergies Active Allergy Reactions Criticality Noted Date [...] Jose Guadalupe rded Speak language other than [place] at home Not on file 04/30/2023 Want [...] 08/06/2022 3:00 PM EDT Plan of Treatment Health Maintenance Due Date Last Done Comments CT Colonography 1949 Colonoscopy 1949 Colorectal Cancer Screening 1949 DXA SCAN 1949 FOBT/FIT 1949 Fit-DNA (Cologuard) 1949 Sigmoidoscopy 1949 Depression Screening (12+) 1961 Hepatitis C Screening 09/30/1967 DTAP/TDAP/TD VACCINES (1 - Tdap) 1968 Pneumococcal 50+ years (1 of 2 - PCV) 1968 Shingles Vaccine (Zoster) (1 of 2) 09/30/1999 Medicare Initial AWV [id number] 09/11/2015 Tobacco Cessation Counseling and Screening (12+) 08/2608/26/2022 COVID-19 VACCINE ( - season) 2023 Falls Risk Screening 04/11/2024 Respiratory Syncytial Virus (RSV) Adult or (1 - 1-dose 75+ series) 2024 Influenza Vaccine (#1) 2024 Medical Devices Implanted Type Area Table Games Dealer Device Identifier Shelf Expiration Date Model / Serial / Lot Iol Uv Clareon +24.0 [id number] - [id number] Implanted:Qty : 1 on 08/12/2022 by Tutu Rucker MD at [facility] IMPLANTS Right: Eye VIOLA 05/16/2026 [id number] / [id number] / Iol Uv Clareon +24.0 [id number] - [id number] Implanted:Qty : 1 on 08/26/2022 by Tutu Rucker MD at [facility] IMPLANTS Left: Eye VIOLA 10/21/2025 [id number] / [id number] / Stents-Dubose ry Stents-Coron [place] Heart Description:2 heart stents Insurance MEDICARE PART A B [facility] MCR SUPP [facility] HEALTH CLAIMS Care Teams Supervisor Carding Relationship Specialty Start Date End Date Ruel Blakely MD [address] [place] [phone] PCP - General Family Medicine 08/10/22
--- NOTE | 2024-11-12 09:14 | XR_ITS ---
FINAL REPORT CLINICAL HISTORY: PAIN heard a pop tuesday when she stepped off a step COMPARISON: None FINDINGS: LEFT HIP: Two views of the left hip with an AP view of the pelvis demonstrate no acute fracture or dislocation. The joint spaces appear normal. The visualized bony structures are well aligned. No soft tissue abnormality is seen. IMPRESSION: No acute bony abnormality. Reviewed, Interpreted and Dictated by Yair Ribeiro MD Transcribed by Omayra Serrano Authenticated and . [facility]
[2024-11-12 09:47] LABS: Microscopic, Urine URINE MICROSCOPIC (MICROSCOPIC)
[2024-11-12 10:13] LABS: Hematocrit 36.8 % (37.0-47.0); Hemoglobin 11.3 g/dL (12.2-16.2); Mean Corpuscular HGB Conc 30.7 g/dL (31.8-35.4); Mean Corpuscular Hemoglobin 28.0 pg (27.0-31.2); Mean Corpuscular Volume 91.3 fl (81-99); Nucleated Red Blood Cells % 0 %; Platelet Count 178 K/mm3 (142-424); Red Blood Count 4.03 M/mm3 (4.20-5.40); Red Cell Distribution Width-SD 46.4 fL; White Blood Count 5.7 K/mm3 (4.8-10.8)
[2024-11-12 10:48] LABS: Bilirubin,Urine Negative (Negative); Color,Urine YELLOW (Yellow); Glucose,Urine (UA) 3+ (Negative); Ketones,Urine Negative (Negative); Leukocyte Esterase,Urine Negative (Negative); PH,Urine 6.0 (5.0-8.5); Protein,Urine Negative (Negative); Specific Gravity, Urine 1.010 (1.005-1.030); Urobilinogen,Urine 0.2 EU/dl (0.2)
[2024-11-12 10:58] LABS: Albumin Level 4.6 g/dl (3.5-5.0); Anion Gap 13.0 mEq/L (5-15); Blood Urea Nitrogen 35 mg/dl (7-17); Calcium 11.2 mg/dl (8.4-10.2); Carbon Dioxide 27 mmol/L (22.0-30.0); Chloride 106 mmol/L (98-107); Creatinine,Serum 1.50 mg/dl (0.52-1.04); Estimated Glomerular Filt Rate 34 ml/min (>60); GFR (African American) 41 ML/MIN (>60); Glucose 165 mg/dl (74-100); Phosphorous 4.0 mg/dl (2.5-4.5); Potassium 5.0 mmoL/L (3.5-5.1); Sodium 141 mmol/L (136-145)
[2024-11-12 11:11] LABS: Bacteria,Urine Trace /lpf; Squamous Epithelial Cell,Urine Occasional #/hpf (0-5)
[2024-11-12 11:30] LABS: 25-OH Vitamin D, Total 42.3 ng/mL (30-100)
== END 2024-11-12 23:59 | disposition home or self-care (01) ==
LOC: LAB 09:00
PROVIDERS: PCP Family Medicine; Visit Provider Nurse Practitioner
DX: N18.32 Chronic kidney disease, stage 3b (principal); M25.552 Pain in left hip
CPT/HCPCS: 36415; 73502; 80069; 81001; 82306; 82570; 83970; 84156; 85027

== ENCOUNTER 2024-11-20 13:53 | Outpatient (CLI) | payer MEDICARE, SELFPAY ==
--- OUTSIDE RECORDS SUMMARY | 2024-05-03 05:30 | XMS_ITS ---
Author Organization [facility] Address [address] [facility] [address] [employer] [place] [id number] Care Team Providers Care Sales Agent Trading Stamps Name Role Phone Parrish Blakely Primary Care Provider [phone] Allergies Allergen (clinical drug ingredient) Drug/Non Drug [...] 42 Performing Lab: Notes/Report: Test performed by [facility] [address] [place] [address] , [address], [place] [address] Khadar Mckay MD, Line Service Person CLIA: [id number] Sodium 143 135-145 mmol/L Potassium 4.8 3.5-5.3 [...] 212 Performing Lab: Notes/Report: Test performed by [facility] [address] [place] [address] , [address], [place] [address] Khadar Mckay MD, Line Service Person CLIA: [id number] Cholesterol 140 <200 mg/dL Triglycerides 212 <150 [...] 40 Performing Lab: Notes/Report: Test performed by [facility], [address] , [address], [place] [address] Khadar Mckay MD, Line Service Person CLIA: [id number] Albumin/Creatinine Ratio, Urine 40 0-30 ug/mg Microalbumin, [...] Problem Status W/U Status Risk Notes Problem Hyperglycemia due to type 2 diabetes mellitus (571289043963524) Diabetes mellitus with hyperglycemia (E11.65) Active confirmed Problem Obese class II ([id number]) BMI 39.0-39.9,adult (Z68.39) Active confirmed Vital Signs Blood pressure systolic 128 mm Hg 05/03/19 25 Blood pressure diastolic 64 mm Hg 025 Heart Rate 60 /min 05/03/2024 Height 60 in 05/03/2024 Weight 204.6 lbs 05/03/2024 BMI 39.95 kg/m2 05/03/2024 Encounters [facility]counter [facility] Date [facility] [address] [id number] 05/03/2024 Parrish Blakely Adult general medica l [...] Name:Parrish Moses, 05/14/2025 09:00:00 AM, [address] [facility], [address], [place], [place], [id number], Progress Notes * PARMINDER SOUSAOB:1950 (74 yo F)Acc No.[id number]:05/03/2024 Annual Wellness Visit Patient: JIAN HOUGH Provider: Parrish Blakely M.D. :1950 A ge:73 Y S ex:Female Date:05/03/2024 Address:[address], [facility] [id number] Subjective: * Chief Complaints: * 1 . [...] Diagno stic Procedure: timmy kay , [facility] ER- Shortness of Breath and Afib 08/07/20. [...] without esophagitis - K21.9 1 2. B UT 39.0-39.9,adult - Z68.39 Plan: * Treatment: Value [...] p latlet 209 100 - 400 * RamosWinnie 05/03/2024 10:4 0:57 AM > Parrish Blakely [...] lycohemoglobin 7.2% 5 - 6.5 % * RamosWinnie 05/03/2024 10:3 9:48 AM > Parrish Blakely [...] 05/04/2024 11:34:48 AM > faxed to [facility] Kami Carrillo 05/04/2024 2:18:52 PM > APPT. 05/16/24 @ 2:30Carissa Farr 05/21/2024 2:55:45 PM > Pt informed 7.?Postmenopause?Imaging: Bone density (Performed Date - 05/16/2024)?Normal* Jamaica Pérez 05/04/2024 11:35 :07 AM > faxed to [facility] AuroraKami Kruse Ann 05/04/2024 2:18:14 PM > APPT 05/16/24 @3:00Carissa Farr 05/17/2024 2:48:56 PM > Pt informed * Procedure Codes: G 0439 ANNUAL WELLNESS VST; PPS SUBSQT VST, G0444 ANNUAL DEPRESSION SCREENING 15 MIN, 1090F PRES/ABSN URINE INCON ASSESS, 3288F FALL RISK ASSESSMENT DOCD, 1170F FXNL STATUS ASSESSED, 1159F MED LIST DOCD IN RCRD, 1003F LEVEL OF ACTIVITY ASSESS, 91922 GLYCATED HEMOGLOBIN TEST, Modifiers: QW , 05199 CBC WITH AUTO DIFF, 1036F TOBACCO NON-USER, [...] * Images: Billing Information: * Visit Code: 20629 Office Visit, Est Pt., Level 3. Modifiers: 25 * Procedure Codes: G0439 ANNUAL WELLNESS VST; PPS SUBSQT VST. G0444 ANNUAL DEPRESSION SCREENING 15 MIN. 1090F PRES/ABSN URINE INCON ASSESS. 3288F FALL RISK ASSESSMENT DOCD. 1170F FXNL STATUS ASSESSED. 1159F MED LIST DOCD IN RCRD. 1003F LEVEL OF ACTIVITY ASSESS. 54254 GLYCATED HEMOGLOBIN TEST. Modifiers: QW 04303 CBC WITH AUTO DIFF. 1036F TOBACCO NON-USER. 3017F COLORECTAL CA SCREEN DOC REV. 4040F PNEUMOC IMM ORDER/ADMIN. 3051F HG A1C>EQUAL 7.0%<8.0%. G8510 NEG SCR Depression PT NOT ELIG F/U/PLN DOC. G8752 MOST RECENT SYSTOLIC BP < 140MM HG. G8754 MOST RECENT DIASTOLIC BP < 90MM HG. * Electronic signature of Parrish Blakely MD on 11/20/2024 at 01:57 PM EDT Sign off status: Pending * Provider: Parrish Blakely M.D. Date: 0 05/03/2024 Generated for Jack mcgregor/Shreya/Daviditting on: 0 11/20/2024 01:57 PM EDT History and Physical Notes * HPI [...]
--- OUTSIDE RECORDS SUMMARY | 2024-09-12 10:45 | XMS_ITS ---
Author Organization [facility] Address [address] [facility] [address] [place] [id number] Care Team Providers Care Photoflash Powder Mixer Name Role Phone Parrish Blakely Primary Care Provider [phone] Edna Nii Unavailable [phone] Allergies Allergen (clinical drug ingredient) Drug/Non Drug [...] DAY; Duration: 90 Active Comfort EZ Pen [place] 32G X 5 MM USE TO INJECT [...] W/U Status Risk Notes Problem Heart failure (91070915) Heart failure, unspecified HF chronicity, unspecified heart failure type (I50.9) Active confirmed Problem Body mass index 40+ - severely obese (911505868) Body mass index (BMI) of 40.1 to 44.9 in adult (Z68.41) Active confirmed Problem Chronic kidney disease stage 3B (disorder) (105214833) Chronic kidney disease, stage 3b (N18.32) Active confirmed Vital Signs Blood pressure systolic 132 mm Hg 09/13/19 25 Blood pressure diastolic 74 mm Hg 025 Heart Rate 81 /min 09/12/2024 Height 60 in 09/12/2024 Weight 211 lbs 09/12/2024 BMI 41.2 kg/m2 09/12/2024 Encounters Encounter Location Date Provider Diagnosis [facility] [address] [facility] [address] [place], [place] [id number] 09/12/2024 Nii Bishop Acute URI J06.9 ; [...] [address], [address], [place], [place], [id number], Progress Notes * PARMINDER SOUSAOB:1950 (74 yo F)Acc No.[id number]:09/12/2024 Progress Notes Patient: JIAN HOUGH Provider: Annelise Bishop M.D. :1950 A ge:73 Y S ex:Female Date:09/12/2024 Address:[address], [place], [id number] Pcp:Parrish Blakely Subjective: * Chief Complaints: * [...] * Hospitalization/Major Diagno stic Procedure: timmy kay [facility] ER- Shortness of Breath and [...] ONCE DAILY , Taking Comfort EZ Pen [place] 32G X 5 MM Miscellaneous USE TO [...] G 2211 Complex e/[place], [address] CAPILLARY BLOOD DRAW, 33795 CBC WITH AUTO DIFF, G8752 MOST RECENT SYSTOLIC BP < 140MM HG, G8754 MOST RECENT DIASTOLIC BP < 90MM HG * Follow Up: p rn * Images: Billing Information: * Visit Code: 81695 Office Visit, Est Pt., Level 3. * Procedure Codes: G2211 Complex e/[place]. [address] CAPILLARY BLOOD DRAW. 65498 CBC WITH AUTO DIFF. G8752 MOST RECENT SYSTOLIC BP < 140MM HG. G8754 MOST RECENT DIASTOLIC BP < 90MM HG. * Electronic signature of Marj Bishop MD on 11/20/2024 at 01:56 PM EDT Sign off status: Pending * Provider: Annelise Bishop M.D. Date: 09/12/2024 Generated for Jack mcgregor/Shreya/eTransmitting on: 0 11/20/2024 01:56 PM EDT History and Physical Notes * [...]
--- OUTSIDE RECORDS SUMMARY | 2024-11-08 05:00 | XMS_ITS ---
Author Organization [facility] Address [address] [facility] [address] [place] [id number] Care Team Providers Care Political Reporter Name Role Phone Parrish Blakely Primary Care Provider Allergies Allergen (clinical drug ingredient) Drug/Non Drug Allergy documented on EMR Reaction Allergy Type Onset Date Status empagliflozin Jardiance yeast infection Drug Allergy Active angiotensin-converti ng enzyme inhibitor (FN) TIFFANY Inhibitors cough Drug Allergy Active Substance with sulfonamide structure and antibacterial mechanism of action (substance) Sulfa Antibiotics itching Drug Allergy Active Results Component Value Reference Range Notes CBC Venipuncture (in house) Reviewed date:11/11/2024 04:32:09 PM Interpretation:Normal Performing Lab: Notes/Report: Normal wbc 6.4 3.5 - 10 lymph 20.3 15 - 50 mid 6.0 2 - 15 gran 73.7 35 - 80 rbc 4.01 3.5 - 5.5 hgb 11.8 11.5 - 16.5 hct 34.9 35 - 55 mcv 87.2 75 - 100 mch 29.5 25 - 35 mchc 33.8 31 - 38 platlet 200 100 - 400 Glycohemoglobin A1c (in hous e) Reviewed date:11/11/2024 04:32:09 PM Interpretation:7.4% Performing Lab: Notes/Report: 7.4% glycohemoglobin 7.4% 5 - 6.5 % P-Comprehensive Metabolic Pa suresh (CMP) Reviewed date:11/11/2024 04:32:09 PM Interpretation:GFR 49; Ca 10.8 Performing Lab: Notes/Report: Test performed by [facility] [address] [place] [address] Usha Troncoso C, [place] [address] Khadar Mckay MD, Environmental Systems Coordinator CLIA: [id number] Sodium 142 135-145 mmol/L Potassium 4.7 3.5-5.3 mmol/L Chloride 104 97-108 mmol/L CO2 26 20-32 mmol/L Glucose 178 65-99 mg/dL BUN 34 8-23 mg/dL Creatinine 1.17 0.50-1.00 mg/dL Calcium 10.8 8.6-10.4 mg/dL eGFR by Creatinine 49 >59 mL/min/1.73m2 Protein 6.8 6.0-8.3 g/dL Albumin 4.5 3.5-5.3 g/dL Alkaline Phosphatase 45 35-121 IU/L ALT (SGPT) 18 <5-47 IU/L AST (SGOT) 18 <5-40 IU/L Bilirubin, Total 0.2 <0.2-1.2 mg/dL A/G Ratio 2.0 1.1-2.5 P-Lipid Panel Reviewed date:11/11/2024 04:32:09 PM Interpretation:LDL 53 trigs 316 Performing Lab: Notes/Report: Test performed by [facility] [address] [place] [address] Usha Troncoso C, [place] [address] Khadar Mckay MD, Environmental Systems Coordinator CLIA: [id number] Cholesterol 166 <200 mg/dL Triglycerides 316 <150 mg/dL HDL Cholesterol 50 >39 mg/dL Cholesterol / HDL Ratio 3.32 0.00-4.44 Ratio Non-HDL Cholesterol 116 <130 mg/dL LDL Cholesterol (Calculation) 53 <130 mg/dL LDL Cholesterol Levels* Less than 100 mg/dL Optimal 100 to 129 mg/dL Near Optimal/ Above Optimal 130 to 159 mg/dL Borderline High 160 to 189 mg/dL High 190 mg/dL and above Very High * Categories as recommended by the 2004 ATPIII guidelines LDL/HDL Ratio 1.1 <3.3 Ratio LDL Cholesterol Patient History Test Date: 11/03/2023 LDL Results: 47 Units: mg/dL % Change: 0% Test Date: 05/03/2024 LDL Results: 56 Units: mg/dL % Change: +19% Test Date: 11/08/2024 LDL Results: 53 Units: mg/dL % Change: -5% Reason For Referral Reason Qc Scientist at [facility] ba crandall diabetic counseling Diagnosis 1 Type 2 diabetes stas itus with other circulatory complication (E11.59) Referral Organization [facility] Referring Provider First Name Parrish Javier Referring Provider Last Name Reddy Referring Provider Speciality Family [facility] Referred Provider 3d specialist, , Referred Provider Specialty Dietary General Notes [place] Pérez 2024 09:53:58 AM > faxed to [facility] Scheduling Referral Priority Routine Reason Dermal cyst on face to be removed Diagnosis 1 Cyst of skin and sub cutaneous tissue (L72.0) Referral Organization [facility] Referring Provider First Name Parrish Javier Referring Provider Last Name Reddy Referring Provider Speciality Family [facility] ctice Referred Organization [facility] OP Referred Provider Lea Dumont Referred Address [address] [facility] [address] [id number], Referred Provider Specialty Dermatology General Notes [place] Pérez 2024 09:55:07 AM > faxed to Dr. Dumont's office Referral Priority Routine REASON FOR VISIT 6 month checkup, Needs labs Medications Medication SIG (Take, Route, Frequency, Duration) Notes Start Date End Date Status Fenofibric Acid 135 MG 1 capsule Orally Once a day; Duration: 90 days Active Januvia 100 MG 1 tablet Orally Once a day; Duration: 90 days Active Lantus SoloStar 100 UNIT/ML INJECT 44 UNITS UNDER THE SKIN 1 TIME EACH DAY; Duration: 90 Active Rosuvastatin Calcium 20 mg TAKE 1 TABLET 1 TIME EACH DAY; Duration: 90 Active Gabapentin 600 MG 1 cap(s) orally twic e a day; Duration: 30 days 06/25/2024 Active Glimepiride 4 mg TAKE 1 TABLET 1 TIME EACH DAY; Duration: 90 Active Valsartan-hydroCHLOROthiaz nelly 320-25 MG TAKE 1 TABLET 1 TIME EACH DAY; Duration: 90 Active Farxiga 10 mg TAKE 1 TABLET 1 TIME EACH DAY; Duration: 90 Active Famotidine 40 mg TAKE 1 TABLET 1 TIME EACH DAY AT BEDTIME; Duration: 90 Active Comfort EZ Pen Phoenix 32G X 5 MM USE TO INJECT INSULIN UNDER THE SKIN 1 TIME EACH DAY; Duration: 90 Active Lopressor 100 MG 1 tab(s) orally daily Active amLODIPine Besylate 5 MG 1 tab(s) Orally once a day Active Metoprolol Succinate ER 100 MG 1 1/2 tab(s) Orally once a day at bedtime Active Spironolactone 50 MG 1 tab(s) Orally onc e a day Active Clopidogrel Bisulfate 75 MG 1 tab(s) orally once a day Active Meclizine HCl 12.5 MG 1 or 2 tab(s) oral ly 3 times a day as needed 10/16/2012 Active Ferrous Sulfate 325 (65 Fe) MG 1 tab(s) orally once a day; Duration: 30 day(s) 10/11/2013 Active Fish Oil 1000MG 3 TAB(S) P.O. ONCE A DAY Active Diclofenac Sodium 1 % as directed applie d topically 4 times a day 04/29/2022 Active Zetia 10 MG 1 tab(s) orally once a day; Duration: 30 day(s) Active Zithromax Z-Rashid 250 MG as directed Orall y daily; Duration: 5 days 09/12/2024 Not-Taking Fenofibric Acid 135 MG take 1 capsule by mouth once daily Active Promethazine-DM 6.25-15 MG/5ML 5 mL as needed Orally every 6 hrs 09/12/2024 Not-Taking Eliquis 2.5 MG 1 tab(s) Orally Two times a day Active Problems Problem Type SNOMED Code ICD Code Onset Dates Problem Status W/U Status Risk Notes Problem Chronic anemia (606566462) Chronic anemia (D64.9) Active confirmed Vital Signs Blood pressure systolic 130 mm Hg 11/09/19 25 Blood pressure diastolic 70 mm Hg 025 Heart Rate 62 /min 11/08/2024 Height 60 in 11/08/2024 Weight 213.2 lbs 11/08/2024 BMI 41.63 kg/m2 11/08/2024 Encounters Encounter Location Date Provider Diagnosis [facility] [address] [id number] 11/08/2024 Parrish Blakely Type 2 diabetes stas itus with other circulatory complication E11.59 ; Diabetes mellitus with hyperglycemia E11.65 ; Paroxysmal atrial fibrillation I48.0 ; Dyslipidemia E78.5 ; Essential hypertension I10 ; Postmenopause Z78.0 ; JACQUELYN (obstructive sleep apnea) G47.33 ; Gastroesophageal reflux disease without esophagitis K21.9 ; Chronic anemia D64.9 ; Hip pain, acute, left M25.552 and Cyst of skin and subcutaneous tissue L72.0 Assessments Encounter Date Diagnosis (ICD Code) Assessment Notes Treatment Notes Treatment Clinical Notes Section Notes 11/08/2024 Type 2 diabetes mellitus with other circulatory complication (ICD-10 - E11.59) 11/08/2024 Diabetes mellitus with hyperglycemia (ICD-10 - E11.65) 11/08/2024 Paroxysmal atrial fibrillation (ICD-10 - I48.0) 11/08/2024 Dyslipidemia (ICD-10 - E78.5) 11/08/2024 Essential hypertension (ICD-10 - I10) 11/08/2024 Postmenopause (ICD-10 - Z78.0) 11/08/2024 JACQUELYN (obstructive sleep apnea) (ICD-10 - G47.33) 11/08/2024 Gastroesophageal reflux disease without esophagitis (ICD-10 - K21.9) 11/08/2024 Chronic anemia (ICD-10 - D64.9) 11/08/2024 Hip pain, acute, left (ICD-10 - M25.552) 11/08/2024 Cyst of skin and subcutaneous tissue (ICD-10 - L72.0) Plan Of Treatment Medication Medication Name Sig Start Date Stop Date Notes Fenofibric Acid 135 MG take 1 capsule by mouth once daily Pending Test Test Name Order Date X ray : Hip, left 11/08/2024 Referrals Referral Date Details 11/13/2024 11/13/2024, Dietcharan neely at [facility] regarding diabetic counseling, , 3d specialist 11/13/2024 11/13/2024, Dermal c yst on face to be removed, Lea Dumont, [address] [place] [address], [phone], Next Appt Details Follow Up: 6 Months, Reason: Provider Name:Parrish Moses, 05/14/2025 09:00:00 AM, [address], [address] , [place], [place], [id number], Progress Notes * PARMINDER SOUSAOB:1950 (74 yo F)Acc No.[id number]:11/08/2024 Progress Notes Patient: JIAN HOUGH Provider: Parrish Blakely M.D. :1950 A ge:74 Y S ex:Female Date:11/08/2024 Address:[address], [place], [id number] Subjective: * Chief Complaints: * 1 . 6 month checkup. 2. Needs labs. * HPI: H PI: 74 year old female presents with c/o Patient is here today for?Pt is here today for a 6 month check up. Pt is fasting. H ip/Thigh: c/o hip pain l eft. Pt sts her left hip has been bothering her since last week. Pt sts she left the dentist office and when she stepped off the step outside she felt a pop in her hip and has been having pain over the lateral hip since then. E ndocrinology: She is interested in consulting with a 3d specialist at [facility]. D ermatology: She has a cyst on her face she would like removed. * ROS: D ERMATOLOGY: no R adrian. [...] Hospitalization/Major Diagno stic Procedure: timmy kay , [facility] ER- Shortness of Breath and Afib [...] tab(s) orally once a day , Taking Comfort EZ Pen Phoenix 32G X 5 MM Miscellaneous USE TO INJECT INSULIN UNDER THE SKIN 1 TIME EACH DAY , Taking Farxiga 10 mg Tablet TAKE [...] SKIN 1 TIME EACH DAY , Taking Fenofibric Acid 135 MG Capsule Delayed Release 1 capsule Orally Once a day , Taking Januvia 100 MG Tablet 1 tablet Orally Once a day , Not-Taking Zithromax Z-Rashid 250 MG Tablet as directed Orally daily , Not-Taking Promethazine-DM 6.25-15 MG/5ML Syrup 5 mL as needed Orally every 6 hrs , Medication List reviewed and reconciled with the patient * Allergies: A CE Inhibitors: cough, Sulfa Antibiotics: itching, Jardiance: yeast infection. Objective: * Vitals: W t: 213.2, Temp: 98.4, BP: 130/70, HR: 62, O2 Sat: 96% on RA, Nurse: lissa, Ht: 60, BMI:41.63. * Examination: G eneral Examination: General Appearance: N AD. Weight stable. H EENT: sclera and conjunctiva clear, PERRLA, TM's normal, translucent. O ral cavity: n o lesions, mucosa moist and WNL, no erythema. N alisa: s tocky, no lymphadenopathy, no carotid bruits. . Heart: R SR. L ungs: c lear to auscultation. A bdomen: obese, soft, bowel sounds present, nontender. S kin: 7 mm dermal cyst on right jaw. E xtremities: n o leg edema. L eft hip with no deformity and nearly full range of motion. There is tenderness over the greater trochanter.. Assessment: * Assessment: 1. T ype 2 diabetes mellitus with other circulatory complication - E11.59 (Primary) ?2. D iabetes mellitus with hyperglycemia - E11.65 3 . P aroxysmal atrial fibrillation - I48.0 4 . D yslipidemia - E78.5 5 . E ssential hypertension - I10 6 . P ostmenopause - Z78.0 7 . O SA (obstructive sleep apnea) - G47.33 8 . G astroesophageal reflux disease without esophagitis - K21.9 9 . C hronic anemia - D64.9 1 0. H ip pain, acute, left - M25.552 1 1. C yst of skin and subcutaneous tissue - L72.0? Plan: * Treatment: Value Reference Range g lycohemoglobin 7.4% 5 - 6.5 % * Carissa Farr 11/08/2024 09:3 8:09 AM EDT > Parrish Blakely 11/11/2024 04:31:45 PM EDT > See phone encounter ? Referral To:, 3d specialist??Dietary ?Reason:Qc Scientist at [facility] regarding diabetic counseling 2.?Dyslipidemia? Continue Fenofibric Acid Capsule Delayed Release, 135 MG, take 1 capsule by mouth once daily.?LAB: P-Lipid Panel (Collection Date & Time - 11/08/2024 10:12 AM)?LDL 53 trigs 316* Value Reference Range C holesterol / HDL Ratio 3.32 0.00-4.44 - Ratio * C holesterol 166 <200 - mg/dL * H DL Cholesterol 50 >39 - mg/dL * L DL Cholesterol (Calculation) 53 <130 - mg/d L * L DL/HDL Ratio 1.1 <3.3 - Ratio * N on-HDL Cholesterol 116 <130 - mg/dL * T riglycerides 316 H <150 - mg/dL * Parrish Blakely 11/11/2024 0 4:31:45 PM EDT > See phone encounter 3.?Essential hypertension?LAB: P-Comprehensive Metabolic Panel (CMP) (Collection Date & Time - 11/08/2024 10:12 AM)?GFR 49; Ca 10.8* Value Reference Range A /G Ratio 2.0 1.1-2.5 - * A lbumin 4.5 3.5-5.3 - g/dL * A lkaline Phosphatase 45 35-121 - IU/L * A LT (SGPT) 18 <5-47 - IU/L * A ST (SGOT) 18 <5-40 - IU/L * B ilirubin, Total 0.2 <0.2-1.2 - mg/dL * B UN 34 H 8-23 - mg/dL * C alcium 10.8 H 8.6-10.4 - mg/dL * C hloride 104 97-108 - mmol/L * C O2 26 20-32 - mmol/L * C reatinine 1.17 H 0.50-1.00 - mg/dL * G lucose 178 H 65-99 - mg/dL * P otassium 4.7 3.5-5.3 - mmol/L * S odium 142 135-145 - mmol/L * P rotein 6.8 6.0-8.3 - g/dL * e GFR by Creatinine 49 L >59 - mL/min/1.73m2 * Parrish Blakely 11/11/2024 0 4:31:45 PM EDT > See phone encounter ?LAB: CBC Venipuncture (in house) (Collection Date & Time - 11/08/2024)? Normal* Value Reference Range w bc 6.4 3.5 - 10 * l ymph 20.3 15 - 50 * m id 6.0 2 - 15 * g ran 73.7 35 - 80 * r bc 4.01 3.5 - 5.5 * h gb 11.8 11.5 - 16.5 * h ct 34.9 35 - 55 * m cv 87.2 75 - 100 * m ch 29.5 25 - 35 * m chc 33.8 31 - 38 * p latlet 200 100 - 400 * Carissa Farr 11/08/2024 09:3 4:13 AM EDT > Parrish Blakely 11/11/2024 04:31:45 PM EDT > See phone encounter 4.?Cyst of skin and subcutaneous tissue? Referral To:Lea Dumont??Dermatology ?Reason:Dermal cyst on face to be removed * Imaging: * I maging: X ray : Hip, left * Procedure Codes: G 2211 Complex e/[place], [address] CBC WITH AUTO DIFF, 35417 GLYCATED HEMOGLOBIN TEST, Modifiers: QW , 3051F HG A1C>EQUAL 7.0%<8.0%, 1036F TOBACCO NON-USER, G8950 PREHTN/HTN BP DOC INDCD F/U DOC, G8752 MOST RECENT SYSTOLIC BP < 140MM HG, G8754 MOST RECENT DIASTOLIC BP < 90MM HG * Follow Up: 6 Months * Images: Billing Information: * Visit Code: 48981 Office Visit, Est Pt., Level 3. * Procedure Codes: G2211 Complex e/[place]. [address] CBC WITH AUTO DIFF. 34523 GLYCATED HEMOGLOBIN TEST. Modifiers: QW 3051F HG A1C>EQUAL 7.0%<8.0%. 1036F TOBACCO NON-USER. G8950 PREHTN/HTN BP DOC INDCD F/U DOC. G8752 MOST RECENT SYSTOLIC BP < 140MM HG. G8754 MOST RECENT DIASTOLIC BP < 90MM HG. * Electronic signature of Parrish Blakely MD on 11/20/2024 at 01:55 PM EDT Sign off status: Pending * Provider: Parrish Blakely M.D. Date: 0 11/08/2024 Generated for Printi ng/Faxing/eTransmitting on: 0 11/20/2024 01:55 PM EDT History and Physical Notes * HPI (History of Present Illness) Category Sub-Category Detail Notes Category Not es Dermatology She has a cyst on her face she would like removed Endocrinology She is interes griselda in consulting with a 3d specialist at [facility] Hip/Thigh hip pain left. Pt sts her left hip has been bothering her since last week. Pt sts she left the dentist office and when she stepped off the step outside she felt a pop in her hip and has been having pain over the lateral hip since then HPI Patient is here toda y for Pt is here today for a 6 month check up. Pt is fasting Examination Category Sub-Category Detail Notes Category Not es General Examination HEENT: sclera and c onjunctiva clear, PERRLA, TM's normal, translucent Heart: RSR Lungs: clear to auscultatio n Abdomen: obese, soft, bowel s ounds present, nontender Extremities: no leg edema. Left h ip with no deformity and nearly full range of motion. There is tenderness over the greater trochanter. General Appearance: NAD. Weight stable Skin: 7 mm dermal cyst on right jaw Neck: stocky, no lymphaden opathy, no carotid bruits. Oral cavity: no lesions, mucosa m oist and WNL, no erythema Consultation Request Notes Referral Date Referring Provider Referred Provider Not es 11/13/2024 Parrish Blakely 3d specialist, , Qc Scientist at [facility] regarding diabetic counseling 11/13/2024 Parrish Blakely Audra Dermal cyst on face to be removed
--- OUTSIDE RECORDS SUMMARY | 2024-11-16 10:40 | XMS_ITS | Encounter Summary ---
Author Organization Healthcare Address [address] [place] [address] Care Team Providers Care Pediatric Licensed Practical Nurse Name Role Phone Yehuda Koehler MD Primary Care Provider + [phone] Reason for Referral * Consultation (Routine) - Authorized Specialty Diagnoses / Procedures Referred By Karen t Referred To Contact Diagnoses Stage 3b chronic kidney disease (CMS/HCC) Lakisha Awad APRN [address] [address] Phone: tel: fax: Referral ID Status Reason Start Date Expiration Date V isits Requested Visits Authorized [id number] Authorized 11/16/2024 05/18/2026 1 1 Reason for Visit * Reason Comments Follow-up Pt is a 74 year old female that presents to the clinic on this date for a follow up. Pt states she is having pain in her hips that she rates 8/10. Pt denies complaints or concerns at the current moment. Encounter Details Date Type Department Care Team (Late st Contact Info) Description 11/16/2024 10:40 AM EDT Office Visit [facility] [address] [place] [address] Lakisha Awad APRN [address] [address] Stage 3b chronic kidney disease (CMS/HCC) (Primary Dx); Anemia, unspecified type; Chronic kidney disease-mineral and bone disorder; Essential hypertension; Diabetes mellitus due to underlying condition with diabetic chronic kidney disease, unspecified CKD stage, unspecified whether long term care phlebotomist insulin use (CMS/HCC); Hypercalcemia; At risk for fluid and electrolyte imbalance Social History Tobacco Use Types Packs/Day Years Used Date Smoking Tobacco: Former Cigarettes 1 0.6 S tarted: 2024 Smokeless Tobacco: Never Tobacco Cessation:Counseling Given: Not Answered Comments:Pt quit smoking 25 years ago Alcohol Use Standard Drinks/Week Comments Never 0 (1 standard drink = 0.6 oz pur e alcohol) AUDIT-C Answer Date Recorded Q1: How often do you have a drink containing alcohol? Never 11/16/2024 Q2: How many drinks containi ng alcohol do you have on a typical day when you are drinking? Patient does not drink Q3: How often do you have si x or more drinks on one occasion? Never 11/16/2024 Comments No Sex and Gender Information Value Date Recorded Sex Assigned at Not on file Legal Sex Female 10:31 AM EDT Gender Identity Not on file Sexual Orientation Not on file documented as of this encounter Last Filed Vital Signs Vital Sign Reading Time Taken Comments Blood Pressure 152/67 11/16/2024 10:32 AM EDT Pulse 66 11/16/2024 10:32 AM EDT Temperature - - Respiratory Rate 18 11/16/2024 10:32 AM EDT Oxygen Saturation 97% 11/16/2024 10:32 AM EDT Inhaled Oxygen Concentration - - Weight 96.6 kg (213 lb) 11/16/2024 10:32 AM EDT Height 152.4 cm (5') 11/16/2024 10:32 AM EDT Body Mass Index 41.6 11/16/2024 10:32 AM EDT documented in this encounter Functional Status * AUDIT-C Score Answer Date of Assessment Author 0 11/16/2024 10:34 AM EDT Char Mane * Question Answer Date of Assessment Author Q1: How often do you have a drink containing alcohol? Never 11/16/2024 10:34 AM EDT Char Mane Q2: How many drinks containing alcohol do you have on a typical day when you are drinking? Patient does not drink 11/16/2024 10:34 AM EDT hCar Maen Q3: How often do you have six or more drinks on one occasion? Never 11/16/2024 10:34 AM EDT Char Mane documented as of this encounter Miscellaneous Notes * Progress Notes - Lakisha Awad, SALT PLANT OPERATOR - 11/16/2024 10:40 AM EDT Nephrology Clinic Follow up Note Nevaeh Sousa is a 73 y.o. female with PMH of DM, HTN, CAD (s/p stents) Aortic stenosis, and anemia who presents as a new consult at the request of Dr. Madison Patient seen by Dr. Madison 03/04 for acute anemia. Patient underwent PRBC transfusion and was startedon IV iron post his visit. Creatinine at that time noted to be 1.8, previously (06/04) creatinine noted to be 1.4. History of DM for ~7 yrs, last A1c 7.2. +neuropathy, no retinopathy Known HTN 15yr runs 140s at home. Notes she has been feeling well since her last visit. She has no new issuess or concerns. Denies hematuria, dysuria, abd pain, SOA, CP. Past Medical History[1] Current Outpatient Medications Medication Instructions apixaban (ELIQUIS) 2.5 mg, 2 times daily Ascorbic Acid (Vitamin C) 500 MG capsule Take by mouth. cholecalciferol (VITAMIN D-3) 1,000 Units, Daily clopidogrel (PLAVIX) 75 mg, Daily cyanocobalamin (VITAMIN B-12) 1,000 mcg, Daily dapagliflozin (FARXIGA) 10 mg, Daily famotidine (PEPCID) 40 mg, Nightly ferrous sulfate 325 mg, Daily with breakfast furosemide (LASIX) 40 mg, Daily gabapentin (NEURONTIN) 600 mg, 2 times daily glimepiride (AMARYL) 4 mg, Daily before breakfast insulin glargine (LANTUS) 20 Units, Nightly metoprolol succinate XL (TOPROL-XL) 100 mg, 2 times daily Multiple Vitamin (multivitamin) tablet 1 tablet, Daily mupirocin (Bactroban) 2 % ointment 1 Application, 2 times daily rivaroxaban (XARELTO) 20 mg, Daily with dinner SITagliptin (JANUVIA) 100 mg, Daily spironolactone (ALDACTONE) 50 mg, Daily Trilipix 135 mg, Daily valsartan-hydroCHLOROthiazide (Diovan-HCT) 320-25 MG tablet 1 tablet, Daily Zinc Acetate 25 MG capsule Take by mouth. Physical Exam Visit Vitals Pulse 66 Ht 1.524 m (5') Wt 96.6 kg (213 lb) SpO2 97% BMI 41.60 kg/m?? GEN: NAD, sitting in chair, room air EYES: anicteric, EOMI ENT: MMM, Oropharynx clear RESP: patent airways, CTAB, no rales, rhonchi, wheezes CV: RRR, no appreciable murmurs Abd: soft, NT, ND, NABS MS/EXT: no LE edema, no new rashes PSYCH: mood appropriate, affect normal NEURO: AAOx3, follows commands Labs: I have independently reviewed and interpreted the test results and discussed with patient. Labs scanned in to media tab of [facility] from an outside facility. Labs completed on 11/12/24 Imaging: Assessment/Plan: MIL on CKD-resolved Creatinine back down to 1.5 Creatinine elevated to 1.8 03/04 Previously 1.4 06/04 Anemia CKD BMD DM Goal A1c <7, most recetn 7.2 On Farxiga HTN CAD Hypercalcemia Calcium 11.2, previous 10.1 Kidney function appears to be closer to baseline. Calcium elevation noted. Will stop hydrochlorothiazide, daily multivitamin, and change vit d to once a week. K also on higher side of normal. Patientnoted eating a lot of tomatoes. Will reduce dietary K for now. If k remains elevated would reduce aldactone to once a day. RTC in 6 months [1] Past Medical History: Diagnosis Date Anemia Angina pectoris Aortic stenosis CAD (coronary artery disease) Colon polyp COVID-19 DM2 (diabetes mellitus, type 2) (CMS/HCC) Epistaxis GERD (gastroesophageal reflux disease) Heart murmur HHD (hypertensive heart disease) HTN (hypertension) PAF (paroxysmal atrial fibrillation) (CMS/HCC) Positive colorectal cancer screening using Cologuard test SOB (shortness of breath) documented in this encounter Plan of Treatment Upcoming Encounters Date Type Department Care Team (Late st Contact Info) Description 02/22/2025 12:00 PM EST Office Visit [facility] [address] [place] [phone] Lakisha Awad, SALT PLANT OPERATOR [address] [facility] [address] [place] [address] Scheduled Orders Name Type Priority Associated Diagnoses Orde r Schedule Renal Function Panel, Plasma Lab Routine Stage 3b chronic kidney disease ([facility]/HCC) Expected: 11/16/2024 (Approximate), Expires: 05/19/2026 Ionized calcium, serum Lab Routine Stage 3b chronic kidney disease ([facility]) Hypercalcemia Expected: 11/16/2024 (Approximate), Expires: 05/19/2026 Scheduled Referrals Name Type Priority Associated Diagnoses Order Schedule Follow Up Nephrology Outpatient Referral Routine Stage 3b chronic kidney disease ([facility]/HCC) Expected: 01/16/2025 (Approximate), Expires: 12/17/2025 documented as of this encounter Visit Diagnoses Diagnosis Stage 3b chronic kidney disease ([facility])- Primary Anemia, unspecified type Chronic kidney disease-mineral and bone disorder Essential hypertension Unspecified essential hypertension Diabetes mellitus due to underlying condition with diabetic chronic kidney disease, unspecified CKD stage, unspecified whether long term care phlebotomist insulin use ([facility]) Hypercalcemia At risk for fluid and electrolyte imbalance documented in this encounter Additional Health Concerns Assessment Noted Time A Body Mass Index follow-up plan has been documented for the patient 11/16/2024 11:03 AM EDT documented as of this encounter Care Teams Pediatric Licensed Practical Nurse Relationship Specialty Start Date End Date Yehuda Koehler MD [address] [place] [id number] PCP - General Internal Medicine 05/04/24 documented as of this encounter
--- OUTSIDE RECORDS SUMMARY | 2024-11-20 13:56 | XMS_ITS | Clinical Summary ---
Author Organization Healthcare Address [address] [place] [address] Care Team Providers Care Business Dean Name Role Phone Yehuda Koehler MD Primary Care Provider + [phone] Allergies Active Allergy Reactions Criticality Noted Date [...] MG capsule Take by mouth. Acti ve valsartan (Diovan) 320 MG tabletIndication s:Essential hypertension Take 1 tablet by mouth daily. 90 tablet 3 11/17/19 25 026 Active valsartan-hydroC HLOROthiazide (Diovan-HCT) 320-25 MG tablet Take 1 tablet by mouth 1 (one) time each day. 025 Discontin ued(Side effects) Encounters Date Type Department Care Team Description 11/16/2024 10:40 AM EDT Office Visit [facility] [address] [place] [phone] Lakisha Awad APRN Stage 3b chronic kidney disease (CMS/HCC) (Primary Dx); Anemia, unspecified type; Chronic kidney disease-mineral and bone disorder; Essential hypertension; Diabetes mellitus due to underlying condition with diabetic chronic kidney disease, unspecified CKD stage, unspecified whether prison insulin use (CMS/HCC); Hypercalcemia; At risk for fluid and electrolyte imbalance 11/16/2024 Travel from Last 3 Months Immunizations Immunization Administration Dates Next Due Influenza, High-dose, Split Virus, Trivalent, Injectable, preservative free 01/30/2020 Influenza, high-dose, quadrivalent 12/30/2023,,01/19/2021 Pneumococcal Polysaccharide PPV23 04/22/2017 Tdap 04/21/2018 Social History Tobacco Use Types Packs/Day Years [...] Mass Index 41.6 11/16/2024 10:32 AM EDT Plan of Treatment Upcoming Encounters Date Type Department Care Team (Late st Contact Info) Description 02/22/2025 12:00 PM EST Office Visit [facility] [address] [place] [address] Lakisha Awad, SPORTS MEDICINE COORDINATOR [address] [address] Health Maintenance Due Date Last Done Comments [facility]-Bone Density Scan 1950 [facility]-Depression Screening 1949 [facility]-Diabetes: Hemoglobin A1C 1949 [facility]-Hepatitis C Screening 1949 [facility]-Medicare Annual Wellness (AWV) 1949 [facility]-Infant/Child/Adol SDOH Screenings 1949 Diabetes: Dental Exam 09/30/1959 [facility]- SDOH Screenings 09/30/1967 [facility]-Adult SDOH Screenings 09/30/1967 CT Colonography 1994 Colonoscopy 1994 FIT-DNA 1994 FIT 1994 FOBT 1994 Sigmoidoscopy 1994 [facility]-Colorectal Cancer Screening 1994 [facility]-Zoster Vaccines (2 of 3) 12/16/2015 10/21/2015 [id number] Vaccine ( season) 2023 02/23/2022, 01/01/2021, 06/05/2020, Additional history exists [facility]-RSV Vaccine: 60+ Years or (1 - 1-dose 75+ series) 2024 [facility]-Influenza Vaccine (#1) 12/10/202412/29, 01/06/2022, 01/19/2021, Additional history exists [facility]-DTaP,Tdap,and Td Vaccines (2 - Td or Tdap) 04/21/2028 04/21/2018 [facility]-Pneumococcal Vaccine: 50+ Years Completed 04/22/2017, 04/20/2016 [facility]-Obesity Intervention Completed 11/16/2024, 04/12 HPV Vaccines Aged Out No longer eligi [...] age to complete this [place] [address] [facility] Care Teams Business Dean Relationship Specialty Start Date End Date Yehuda Koehler MD [address] [place] [id number] PCP - General Internal Medicine 05/04/24
--- OUTSIDE RECORDS SUMMARY | 2024-11-20 13:56 | XMS_ITS | Patient Health Record ---
Author Organization [facility] Address [address] [facility] [address] [facility] [address] [place] [id number] Care Team Providers Care Tub Tender Name Role Phone Parrish Blakely Primary Care Provider Nii Bishop Unavailable [phone] Allergies Allergen (clinical drug ingredient) Drug/Non Drug [...] 10.8 Performing Lab: Notes/Report: Test performed by [facility] [address] [place] [address] [address], [place] [address] Khadar Mckay MD, Hotel Operations Manager CLIA: [id number] Sodium 142 135-145 mmol/L Potassium 4.7 3.5-5.3 [...] 316 Performing Lab: Notes/Report: Test performed by [facility] [address] [place] [address] , [address], [place] [address] Khadar Mckay MD, Hotel Operations Manager CLIA: [id number] Cholesterol 166 <200 mg/dL Triglycerides 316 <150 [...] - 38 plat 207 100 - 400 Mammogram Reviewed date:05/21/2024 02:55:55 PM Interpretation:Negative, annual f/u Performing Lab: Notes/Report: Negative, annual f/u result Negative, annual f/u Bone density Reviewed date:05/17/2024 02:49:04 PM Interpretation:Normal Performing Lab: Notes/Report: Normal P-Microalbumin/Creatinine, R andom Urine Sample Reviewed date:05/08/2024 09:02:51 AM Interpretation:a/c 40 Performing Lab: Notes/Report: Test performed by [facility] [address] [place] [address] , [place] [address] Khadar Mckay MD, Hotel Operations Manager CLIA: [id number] Albumin/Creatinine Ratio, Urine 40 0-30 ug/mg Microalbumin, Urine, Random 2.9 Creatinine, Urine 72.2 P-Lipid Panel Reviewed date:05/08/2024 09:02:51 AM Interpretation:trigs 212 Performing Lab: Notes/Report: Test performed by [facility] [address] [place] [address] , [address], [place] [address] Khadar Mckay MD, Hotel Operations Manager CLIA: [id number] Cholesterol 140 <200 mg/dL Triglycerides 212 <150 [...] 42 Performing Lab: Notes/Report: Test performed by [facility] [address] [facility] , [address], [place] [address] Khadar Mckay MD, Hotel Operations Manager CLIA: [id number] Sodium 143 135-145 mmol/L Potassium 4.8 3.5-5.3 [...] - 38 platlet 209 100 - 400 Medications Medication SIG (Take, Route, Frequency, Duration) [...] times a day Active Comfort EZ Pen Crownpoint 32G X 5 MM USE TO INJECT [...] W/U Status Risk Notes Problem Atrial fibrillation (02720265) A-fib (I48.91) Active confirmed Problem Essential hypertension (04351871) Essential hypertension (I10) Active confirmed Problem Abnormal mammogram (555267263) Abnormal mammogram (R92.8) Active confirmed Problem Seasonal allergy (347052914) Seasonal allergies (J30.2) Active confirmed Problem Hypoglycemic state in diabetes (834345066) Hypoglycemia associated with diabetes (E11.649) Active confirmed Problem Iron deficiency anemia (17841902) Iron deficiency anemia (D50.9) Active confirmed Problem Paroxysmal atrial fibrillation (020790981) Paroxysmal atrial fibrillation (I48.0) Active confirmed Problem Generalized osteoarthritis (742470231) Generalized osteoarthritis (M15.9) Active confirmed Problem Atherosclerotic heart disease of 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) Active confirmed Problem Gastroesophageal reflux disease without esophagitis (015425060) Gastroesophageal reflux disease without esophagitis (K21.9) Active confirmed Problem Hyperglycemia due to type 2 diabetes mellitus (217609987708480) Diabetes mellitus with hyperglycemia (E11.65) Active confirmed Problem Obstructive sleep apnea syndrome (24605099) JACQUELYN (obstructive sleep apnea) (G47.33) Active confirmed Problem Dyslipidemia (194074036) Dyslipidemia (E78.5) Active confirmed Problem Body mass index 40+ - severely obese (070149899) Body mass index (BMI) of 40.1 to 44.9 in adult (Z68.41) Active confirmed Problem Peripheral circulatory disorder associated with diabetes mellitus (694685068) 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) Active confirmed Problem Obese class II (767010314979991) BMI 39.0-39.9,adult (Z68.39) Active confirmed Problem Chronic anemia (933524666) Chronic anemia (D64.9) Active confirmed Problem Thyromegaly (0033057) Thyromegaly (E01.0) Active confirmed Problem Heart failure (65783292) Heart failure, unspecified HF chronicity, unspecified heart failure type (I50.9) Active confirmed Problem Chronic kidney disease stage 3B (disorder) (162929756) Chronic kidney disease, stage 3b (N18.32) Active confirmed Vital Signs Heart Rate 62 /min 11/08/2024 Blood pressure diastolic 70 mm Hg 11/08/2024 Height 60 in 11/08/2024 Blood pressure systolic 130 mm Hg 11/08/2024 Weight 213.2 lbs 11/08/2024 BMI 41.63 kg/m2 11/08/2024 Encounters Encounter Location Date Provider Diagnosis [place] [address] [facility] [address] [place] [id number] 12/30/2023 [facility]ii Bishop [facility] [address] [place] [id number] 03/01/2024 Parrish lBakely Iron deficiency anem ia D50.9 and Paroxysmal atrial fibrillation I48.0 [facility] [address] [facility] [address] [place] [id number] 05/03/2024 Parrish Blakely Adult general medica l [...] without esophagitis K21.9 and BMI 39.0-39.9,adult Z68.39 [facility] [address] [facility] [address] [place] [id number] 09/12/2024 Nii [place] Acute URI J06.9 ; Dyslipidemia E78.5 ; Hypertensive heart and chronic kidney disease with heart failure I13.0 ; Heart failure, unspecified HF chronicity, unspecified heart failure type I50.9 ; Body mass index (BMI) of 40.1 to 44.9 in adult Z68.41 and Chronic kidney disease, stage 3b N18.32 [facility] [address] [facility] [address] [place] [id number] 11/08/2024 Parrish Blakely Type 2 diabetes stas [...] Cyst of skin and subcutaneous tissue L72.0 [place] [address] [facility] [address] [place], [place] [id number] 11/19/2024 Parrish Blakely [facility] [address] [facility] [address] [place], [place] [id number] 05/08/2024 Parrish Yaya Zepedaeet [place] [address] [facility] [address] [place], [place] [id number] 05/23/2024 Nii [place] Lumbar radicular syed n M54.16 [facility] [address] [facility] [address] [place], [place] [id number] 06/25/2024 Parrish Blakely Lumbar radicular syed n M54.16 [facility] [address] [facility] [address] [place], [place] [id number] 11/11/2024 Parrish Blakely Assessments Encounter Date Diagnosis (ICD Code) Assessment Notes Treatment Notes Treatment Clinical Notes Section Notes 12/30/2023 Encounter for immunization (ICD-10 - Z23) [...] other circulatory complication (ICD-10 - E11.59) 11/08/2024 Paroxysmal atrial fibrillation (ICD-10 - I48.0) 09/12/2024 Hypertensive heart and chronic kidney disease with heart failure (ICD-10 - I13.0) 05/03/2024 Type 2 diabetes mellitus with other [...] - I48.0) 05/03/2024 Dyslipidemia (ICD-10 - E78.5) 09/12/2024 Chronic kidney disease, stage 3b (ICD-10 - N18.32) 11/08/2024 Postmenopause (ICD-10 - Z78.0) 11/08/2024 JACQUELYN [...] skin and subcutaneous tissue (ICD-10 - L72.0) 05/03/2024 Gastroesophageal reflux disease without esophagitis (ICD-10 - K21.9) 05/03/2024 BMI 39.0-39.9,adult (ICD-10 - Z68.39) Plan Of Treatment Pending Test Test Name Order Date X ray : Hip, left 11/08/2024 Next Appt Details Provider Name:Parrish Moses, 05/14/2025 09:00:00 AM, [address], [address], [place], [place], [id number], Insurance Providers Payer Name Payer Address Payer Phone Subscriber Number Group Number Insured Name Patient Relationship to Insured Coverage Start Date Coverage End Date MEDICARE PART B [address] [address] [place] [address] [id number] JIAN SOUSA Self - patient is the insured [facility] [address] [place] [id number] JIAN SOUSA Self - patient is the [...] Dr. Valerio 05/30/2023 Hospitalization History Reason Date(Month/Year) [facility] ER- Shortness of Breath and Afib childbirth
--- OUTSIDE RECORDS SUMMARY | 2024-11-20 13:56 | XMS_ITS | Encounter Summary ---
Author Organization Healthcare Address [address] [id number] Care Team Providers Care Box Stapler Name Role Phone Yehuda Koehler MD Primary Care Provider [phone] Encounter Details Date Type Department Care Team (Latest Contact Info) Description 11/16/2024 Travel Social History Tobacco Use Types Packs/Day Years Used Date Smoking Tobacco: Former Cigarettes 1 0.6 S tarted: 2024 Smokeless Tobacco: Never Comments:Pt quit smoking 25 years ago Alcohol [...] on file documented as of this encounter Functional Status * AUDIT-C Score Answer Date of Assessment Author 0 11/16/2024 10:34 AM Char Ulloa * Question Answer Date of Assessment Author Q1: How often do you have a drink containing alcohol? Never 11/16/2024 10:34 AM BERNARDT [place] Q2: How many drinks containing alcohol do you have on a typical day when you are drinking? Patient does not drink 11/16/2024 10:34 AM BERNARDT [place] Q3: How often do you have six or more drinks on one occasion? Never 11/16/2024 10:34 AM BERNARDT [place] documented as of this encounter Plan of Treatment Upcoming Encounters Date Type Department Care Team (Late st Contact Info) Description 02/22/2025 12:00 PM EST Office Visit [facility] [address] [place] [phone] Lakisha Awad, PROGRAM COORDINATOR [address] [facility] [address] [place] [address] documented as of this encounter Visit Diagnoses Not on filedocumented in this encounter Additional Health Concerns Assessment Noted Time A Body Mass Index follow-up plan has been documented for the patient 11/16/2024 11:03 AM EDT documented as of this encounter Care Teams Box Stapler Relationship Specialty Start Date End Date Yehuda Koehler MD [address] [place] [address] PCP - General Internal Medicine 05/04/24 documented as of this encounter
--- OUTSIDE RECORDS SUMMARY | 2024-11-20 13:56 | XMS_ITS | Clinical Summary ---
Author Organization [employer] ([place], [place], [place], [place]) Address [address] [place] [address] Care Team Providers Care Casing Soaker Name Role Phone Ruel Blakely MD Primary Care Provider [phone] Allergies Active Allergy Reactions Criticality Noted Date [...] Jose Guadalupe rded Speak language other than Tanzanian at home Not on file 04/30/2023 Want [...] (#1) 2024 Medical Devices Implanted Type Area Software Specialist Device Identifier Shelf Expiration Date Model / Serial / Lot Iol Uv Clareon +24.0 [id number] - [id number] Implanted:Qty : 1 on 08/12/2022 by Tutu Rucker MD at [facility] IMPLANTS Right: Eye VIOLA 05/16/2026 [id number] / [id number] / Iol Uv Clareon +24.0 [id number] - [id number] Implanted:Qty : 1 on 08/26/2022 by Tutu Rucker MD at [facility] IMPLANTS Left: Eye VIOLA 10/21/2025 [id number] / [id number] / Stents-Dubose ry Stents-[place]on [place] Heart Description:2 heart stents Insurance MEDICARE PART A B [facility] MCR SUPP [facility] HEALTH CLAIMS Care Teams Casing Soaker Relationship Specialty Start Date End Date Ruel Blakely MD [address] [place] [phone] PCP - General Family Medicine 08/10/22
--- OUTSIDE RECORDS SUMMARY | 2024-11-20 13:56 | XMS_ITS | Referral Summary ---
Author Organization [employer] ([place], [place], [place], [place]) Address [address] [place] [address] Care Team Providers Care Heel Brusher Name Role Phone Ruel Blakely MD Primary Care Provider [phone] Allergies Active Allergy Reactions Criticality Noted Date [...] Jose Guadalupe rded Speak language other than Malay at home Not on file 04/30/2023 Want [...] on file Medical Devices Implanted Type Area Overlock Elastic Attacher Device Identifier Shelf Expiration Date Model / Serial / Lot Iol Uv Clareon +24.0 [id number] - [id number] Implanted:Qty : 1 on 08/12/2022 by Tutu Rucker MD at [facility] IMPLANTS Right: Eye VIOLA 05/16/2026 [id number] / [id number] / Iol Uv Clareon +24.0 [id number] - [id number] Implanted:Qty : 1 on 08/26/2022 by Tutu Rucker MD at [facility] IMPLANTS Left: Eye VIOLA 10/21/2025 [id number] / [id number] / Stents-Dubose ry Stents-[place]on [place] Heart Description:2 heart stents Insurance MEDICARE PART A B [facility] MCR SUPP [facility] HEALTH CLAIMS Care Teams Heel Brusher Relationship Specialty Start Date End Date Ruel Blakely MD [address] [place] [address] PCP - General Family Medicine 08/10/22
== END 2024-11-20 23:59 | disposition home or self-care (01) ==
LOC: DIETICIAN 13:53
PROVIDERS: PCP Family Medicine; Visit Provider Family Medicine
DX: E11.59 Type 2 diabetes mellitus with other circulatory complications (principal); Z71.3 Dietary counseling and surveillance
CPT/HCPCS: 97802

== ENCOUNTER 2025-02-19 13:46 | Outpatient (CLI) | payer MEDICARE, SELFPAY ==
--- OUTSIDE RECORDS SUMMARY | 2025-02-19 13:52 | XMS_ITS | Referral Summary ---
Author Organization [employer] ([place], [place], [place], [place], [place]) Address [address] [place] [address] Care Team Providers Care Development Mgr Name Role Phone Ruel Blakely MD Primary Care Provider [phone] Allergies Active Allergy Reactions Criticality Noted Date [...] Jose Guadalupe rded Speak language other than Tajik at home Not on file 04/30/2023 Want [...] on file Medical Devices Implanted Type Area Drywall Sander Device Identifier Shelf Expiration Date Model / Serial / Lot Iol Uv Clareon +24.0 [id number] - [id number] Implanted:Qty : 1 on 08/12/2022 by Tutu Rucker MD at [facility] IMPLANTS Right: Eye VIOLA 05/16/2026 [id number] / [id number] / Iol Uv Clareon +24.0 [id number] - [id number] Implanted:Qty : 1 on 08/26/2022 by Tutu Rucker MD at [facility] IMPLANTS Left: Eye VIOLA 10/21/2025 [id number] / [id number] / Stents-Dubose ry Stents-[place]on [place] Heart Description:2 heart stents Insurance MEDICARE PART A B [facility] MCR SUPP [facility] HEALTH CLAIMS Care Teams Development Mgr Relationship Specialty Start Date End Date Ruel Blakely MD [address] [place] [phone] PCP - General Family Medicine 08/10/22
--- OUTSIDE RECORDS SUMMARY | 2025-02-19 13:52 | XMS_ITS | Clinical Summary ---
Author Organization Healthcare Address [address] [place] [address] Care Team Providers Care Veterinary Practitioner Name Role Phone Yehuda Koehler MD Primary Care Provider + [phone] Allergies Active Allergy Reactions Criticality Noted Date Comments Jus Inhibitors Cough Low 02/19/2025 Empagliflozin Other - please docum ent in the comment field Low 02/19/2025 Sulfa Drugs Other - please docum ent [...] tablet by mouth daily. 90 tablet 3 5 11/17/19 26 Active Immunizations Immunization Administration Dates Next Due Influenza, High-dose, Split Virus, Trivalent, Injectable, preservative free 01/30/2020 Influenza, high-dose, quadrivalent 12/29,12/22/2022,01/06/2022,01/19 Influenza, seasonal, injectable 03/10/2007,03/06 Pneumococcal 20-nba Conj Vaccine 04/28/2023 Pneumococcal Conjugate PCV 13 04/20/2016 Pneumococcal Polysaccharide PPV23 04/22/2017 Tdap 04/21/2018 Zoster, live 10/21/2015 Social History Tobacco Use Types Packs/Day Years Used Date Smoking Tobacco: Former Cigarettes 1 0.9 S tarted: 2024 Smokeless Tobacco: Never Tobacco [...] Description 02/22/2025 12:00 PM EST Office Visit [facility] [address] [place] [phone] Lakisha Awad, NIGHT MONITOR [address] [address] Health Maintenance Due Date Last [...] [facility]-Zoster Vaccines (2 of 3) 12/16/2015 10/21/2015 [facility]-RSV Vaccine: 60+ Years or (1 - 1-dose 75+ series) 2024 BCG-[id number] Vaccine (5 - season) 2024 02/23/2022, 01/01/2021, 06/05/2020, Additional history exists [facility]-Influenza Vaccine (#1) 12/10/202412/29, 12/22/2022, 01/06/2022, Additional history exists [facility]-DTaP,Tdap,and Td Vaccines (2 - Td or Tdap) 04/21/2028 04/21/2018 [facility]-Pneumococcal Vaccine: 50+ Years Completed 04/28/2023, 04/22/2017, 04/20/2016 [facility]-Obesity Intervention Completed 11/16/2024, 04/12 [...] age to complete this topic Insurance MEDICARE [employer] Care Teams Veterinary Practitioner Relationship Specialty Start Date End Date Yehuda Koehler MD [address] [place] [phone] PCP - General Internal Medicine 05/04/24
--- OUTSIDE RECORDS SUMMARY | 2025-02-19 13:52 | XMS_ITS | Clinical Summary ---
Author Organization [employer] ([place], [place], [place], [place], [place]) Address [address] [place] [address] Care Team Providers Care Engineering Coordinator Name Role Phone Ruel Blakely MD Primary Care Provider [phone] Allergies Active Allergy Reactions Criticality Noted Date [...] Jose Guadalupe rded Speak language other than Djiboutian at home Not on file 04/30/2023 Want [...] Tobacco Cessation Counseling and Screening (12+) 08/2608/26/2022 Falls Risk Screening 04/11/2024 Respiratory Syncytial Virus (RSV) Adult or (1 - 1-dose 75+ series) 2024 COVID-19 VACCINE ( season) 2024 Influenza Vaccine (#1) 2024 Medical Devices Implanted Type Area Driver License Examiner Device Identifier Shelf Expiration Date Model / Serial / Lot Iol Uv Clareon +24.0 [id number] - [id number] Implanted:Qty : 1 on 08/12/2022 by Tutu Rucker MD at [facility] IMPLANTS Right: Eye VIOLA 05/16/2026 [id number] / [id number] / Iol Uv Clareon +24.0 [id number] - [id number] Implanted:Qty : 1 on 08/26/2022 by Tutu Rucker MD at [facility] IMPLANTS Left: Eye VIOLA 10/21/2025 [id number] / [id number] / Stents-Dubose ry Stents-[place]on [place] Heart Description:2 heart stents Insurance MEDICARE PART A B [facility] MCR SUPP [facility] HEALTH CLAIMS Care Teams Engineering Coordinator Relationship Specialty Start Date End Date Ruel Blakely MD [address] [place] [phone] PCP - General Family Medicine 08/10/22
[2025-02-19 15:39] LABS: Albumin Level 4.5 g/dl (3.5-5.0); Anion Gap 12.6 mEq/L (5-15); Blood Urea Nitrogen 22 mg/dl (7-17); Calcium 10.1 mg/dl (8.4-10.2); Carbon Dioxide 28 mmol/L (22.0-30.0); Chloride 104 mmol/L (98-107); Creatinine,Serum 1.30 mg/dl (0.52-1.04); Estimated Glomerular Filt Rate 40 ml/min (>60); GFR (African American) 48 ML/MIN (>60); Glucose 105 mg/dl (74-100); Phosphorous 4.0 mg/dl (2.5-4.5); Potassium 4.6 mmoL/L (3.5-5.1); Sodium 140 mmol/L (136-145)
[2025-02-20 16:32] LABS: Calcium, Ionized 5.3 mg/dL (4.5-5.6)
== END 2025-02-19 23:59 | disposition home or self-care (01) ==
LOC: LAB 13:48
PROVIDERS: PCP Family Medicine; Visit Provider Nurse Practitioner
DX: N18.32 Chronic kidney disease, stage 3b (principal); E83.52 Hypercalcemia
CPT/HCPCS: 36415; 80069; 82330